=== PATIENT | female | born 1985 | race Caucasian/White ===

== ENCOUNTER 2019-05-21 23:26 | Emergency (ER) | payer OTHER, SELFPAY ==
[2019-05-21 23:28] VITALS: BP 148/101; PULSE 115; RESP 22; TEMP 36.9; O2SAT 99; BMI 23.6
[2019-05-21 23:33] VITALS: BP 148/101; PULSE 115; RESP 18; TEMP 36.9; O2SAT 99
--- NOTE | 2019-05-21 23:40 | RAD_ITS ---
STUDY: X-RAY CHEST REASON FOR EXAM: Female, 34 years old. cough x 1 month TECHNIQUE: PA and lateral chest. COMPARISON: October 20, 2009. FINDINGS: The lungs are clear and expanded. There is no demonstrated pleural abnormality. Normal size heart. Normal mediastinum and jonas. Normal visualized pulmonary arteries. Normal visualized aortic arch and descending thoracic aorta. Normal visualized thoracic spine. Normal visualized ribs, clavicles, and shoulders. There is no demonstrated abnormality of the visualized soft tissue structures of the upper abdomen. RAD/Chest PA and Lateral IMPRESSION: Normal x-ray examination of the chest. Electronically Signed: Bola Flannery MD at 0:06 EDT , Service support ,
--- NOTE | 2019-05-21 23:41 | ED.DCSUM_ITS ---
- ER Visit Summary Date of Service: 05/21/19 Chief Complaint: Cough and fever History of Present Illness: The patient is a 34 F past medical history of angioedema and hives. Connective tissue disorder undifferentiated. Patient states since April 26 she is had intermittent cough and fever. Multiple fam baldo members have had the same. At times she has yellowish sputum. She has had a fever as high as 102. Currently she is afebrile and has not taken any Tylenol or Motrin today. Physical Examination: Young female no acute distress. Vital signs are stable afebrile. Temperature 98.5. She does not look septic or toxic she is no distress. Pulse ox 99% on room air no signs hypoxia. H EENT exam normal. Neck nontender no lymphadenopathy. No meningismus. Lungs dry cough but no rales, rhonchi or wheezing. Equal symmetrical. No distress. Heart regular rhythm rate about 110 no murmur. Abdomen soft nontender. Patient is moving all 4 extremities. Calves are nontender without edema or cords. Back nontender. Skin no rashes. Neurologically she is awake and alert. Test Results: Chest x-ray 2 views AP and lateral read by myself shows no acute abnormality. Normal cardiac silhouette mediastinum. Emergency Department Course and Treatment: History and exam are consistent with a viral syndrome. She has no signs of pneumonia. She does not need antibiotics. Treatment Plan: Plenty of fluids and rest. Alternate Tylenol Motrin for fever. Follow-up if not improving. Precautions to prevent the spread to other people. Disposition: Discharge Impression: Acute viral URI This note was generated with [employer] dictation software. It may contain incorrect words, spelling, and punctuation that were not noted in review of the chart prior to signing ED Disposition - Plan for ED Patient: Referrals: Isaac Ayala MD [Primary Care Provider] -
--- NOTE | 2019-05-21 23:45 | ED.DEP ---
ED Disposition - Plan for ED Patient: Disposition: Home or Assisted Living Instructions: URI, Viral, No Abx (Adult) Referrals: Isaac Ayala MD [Primary Care Provider] - Additional Instructions: Plenty of fluids and rest. Alternate Tylenol and Motrin for fever. Use precautions to prevent infecting other people. Follow-up with your doctor if not improving.
[2019-05-22 00:15] VITALS: BP 136/89; PULSE 91; RESP 22; O2SAT 98
--- NOTE | 2019-05-22 00:16 | ED.RN ---
THIS NURSE REVIEWED D/C INSTRUCTIONS WITH PT. PT VERBALIZED UNDERSTANDING OF INSTRUCTIONS. PT DENIES FURTHER NEEDS OR QUESTIONS AT THIS TIME. PT AMBULATES FROM ROOM ON OWN WITHOUT ASSISTANCE FROM STAFF
== END 2019-05-22 00:16 | disposition home or self-care (01) ==
PROVIDERS: Emergency Provider Emergency Medicine; PCP Pediatrics
DX: J06.9 Acute upper respiratory infection, unspecified (principal)
CPT/HCPCS: 71046; 99282

== ENCOUNTER 2023-04-14 16:54 | Emergency (ER) | payer OTHER, SELFPAY ==
[2023-04-14 16:55] VITALS: BP 149/115; PULSE 120; RESP 20; TEMP 36.1; O2SAT 100; BMI 31.8
[2023-04-14 18:14] VITALS: BP 158/96; PULSE 95; RESP 14; O2SAT 100
--- NOTE | 2023-04-14 18:14 | EDS_ITS ---
HPI History of Present Illness Chief Complaint: Syncope Informant: patient Onset/Context/Timing Onset: Today Context: Sudden Onset Timing: Waxes and wanes Quality: Lightheaded, dizzy Location: Head Worsened by: Standing, moving Relieved by: Laying down Narrative Narrative: Patient presents with a syncopal episode that occurred today. Patient states she was walking up steps when this occurred. Patient states she felt lightheaded and dizzy. Patient states she did fall down. Patient thinks she may have lost consciousness but is not sure. Patient states that if she was unconscious it was very brief. Patient states she feels lightheaded and dizzy. Patient states it is worse with standing and moving. Patient states it is better when she is laying down. Patient states she was recently started on a beta-jan 5 days ago. Patient states that with metoprolol. Patient states it was a very low dose. Patient states this was for tachycardia. [facility] Medical History (Updated 04/14/23 @ 21:[address] Lenny Curiel DO) SOB (shortness of breath) Home Medications Methotrexate 05/21/19 [History Last Taken Unknown] cetirizine 10 mg capsule 10 mg PO BID 05/21/19 [History Last Taken Unknown] cholecalciferol (vitamin D3) 50 mcg (2,000 unit) capsule 4,000 unit PO DAILY 05/21/19 [History Last Taken Unknown] famotidine 20 mg tablet 20 mg PO BID 05/21/19 [History Last Taken Unknown] fexofenadine 60 mg tablet 60 mg PO BID 05/21/19 [History Last Taken Unknown] fluticasone propionate 50 mcg/actuation nasal spray,suspension 2 spray NASAL DAILY 05/21/19 [History Last Taken Unknown] methylphenidate HCl 18 mg tablet,extended release 24 hr 36 mg PO DAILY 05/21/19 [History Last Taken Unknown] Allergy/AdvReac Type Severity Reaction Status Date / Time Penicillins Allergy Rash Verified 04/14/23 16:56 Surgical History (Updated 04/14/23 @ 18:[address] Lenny Curiel DO) History of section Hx of tonsillectomy Social History Smoking Status: Never smoker ROS ROS ED Constitutional Constitutional ED: Denies chills or fever(s) Eyes Eyes: Reports change in vision and other Details: Floaters ; Denies blurry vision ENT ENT ED: Reports other Details: Occasional epistaxis ; Denies rhinorrhea or sore throat Cardiovascular Cardiovascular: Reports chest pain and palpitations Respiratory/Chest Respiratory/Chest: Denies cough or dyspnea Gastrointestinal Gastrointestinal: Reports nausea; Denies vomiting Genitourinary Genitourinary ED: Reports urinary frequency; Denies dysuria or hematuria Musculoskeletal Musculoskeletal: Reports neck pain; Denies back pain Integumentary Reports rash; Denies abscess Neurologic Neurologic: Reports weakness; Denies headache(s) Allergic/Immunologic Allergic/Immunologic ED: Reports urticaria; Denies mouth swelling or tongue swelling EXAM Physical Exam Const Vital Signs: 04/14/23 16:55 04/14/23 18:08 04/14/23 18:14 Temperature 97 F L Temperature Source Temporal Pulse Rate 120 H 95 Pulse Rate [Lying] Pulse Rate [Sitting (for 1 minute prior to obtaining)] Pulse Rate [Standing (for 1 minute prior to obtaining)] Respiratory Rate 20 H 14 Respiratory Effort Normal Non-Labored Respiratory Pattern Normal Blood Pressure 149/115 H 158/96 H Blood Pressure [Lying] Blood Pressure [Sitting (for 1 minute prior to obtaining)] Blood Pressure [Standing (for 1 minute prior to obtaining)] Blood Pressure Mean 126 116 Blood Pressure Mean [Lying] Blood Pressure Mean [Sitting (for 1 minute prior to obtaining)] Blood Pressure Mean [Standing (for 1 minute prior to obtaining)] Pulse Ox 100 100 Oxygen Delivery Method Room Air Room Air 04/14/23 18:56 04/14/23 20:57 04/14/23 20:59 Temperature 98.8 F 98.8 F Temperature Source Temporal Temporal Pulse Rate 96 96 Pulse Rate [Lying] 99 Pulse Rate [Sitting (for 1 minute prior to obtaining)] 83 Pulse Rate [Standing (for 1 minute prior to obtaining)] 83 Respiratory Rate 18 18 Respiratory Effort Respiratory Pattern Blood Pressure 156/98 H 156/98 H Blood Pressure [Lying] 149/105 H Blood Pressure [Sitting (for 1 minute prior to obtaining)] 153/98 H Blood Pressure [Standing (for 1 minute prior to obtaining)] 146/103 H Blood Pressure Mean 117 117 Blood Pressure Mean [Lying] 119 Blood Pressure Mean [Sitting (for 1 minute prior to obtaining)] 116 Blood Pressure Mean [Standing (for 1 minute prior to obtaining)] 117 Pulse Ox 98 98 Oxygen Delivery Method Room Air Room Air 04/14/23 21:00 Temperature 98.8 F Temperature Source Pulse Rate 96 Pulse Rate [Lying] Pulse Rate [Sitting (for 1 minute prior to obtaining)] Pulse Rate [Standing (for 1 minute prior to obtaining)] Respiratory Rate 18 Respiratory Effort Respiratory Pattern Blood Pressure 156/98 H Blood Pressure [Lying] Blood Pressure [Sitting (for 1 minute prior to obtaining)] Blood Pressure [Standing (for 1 minute prior to obtaining)] Blood Pressure Mean 117 Blood Pressure Mean [Lying] Blood Pressure Mean [Sitting (for 1 minute prior to obtaining)] Blood Pressure Mean [Standing (for 1 minute prior to obtaining)] Pulse Ox 98 Oxygen Delivery Method Positive well nourished and well developed General Appearance ED: well developed and NAD HEENT Reports moist mucous membranes Neck supple and no JVD Resp normal respiratory effort and clear to auscultation bilaterally Cardio regular rhythm Rate: tachycardic GI non-tender and non-distended Palpation: soft Extremity normal to inspection Neuro oriented x3, CN's II-XII intact bilaterally and no sensory deficits noted Sensorium / Orientation: alert Motor Exam: strength 5/5 throughout Psych mental status grossly normal MDM MDM MDM Narrative Medical decision making narrative: Differential diagnosis includes cardiac dysrhythmia, cardiac ischemia, pulmonary embolism, electrolyte abnormality, dehydration, and medication side effect. EKG will be obtained to assess for cardiac dysrhythmia and cardiac ischemia. CT scan of the brain will be obtained to assess for intracranial bleeding and stroke. CTA of the chest will be obtained to assess for pulmonary embolism and aortic dissection. CBC will be obtained to assess for leukocytosis and anemia. Basic metabolic profile will be obtained to assess for electrolyte abnormality and renal function. High-sensitivity troponin will be obtained to assess for cardiac ischemia. 2-hour repeat high-sensitivity troponin will be obtained to assess for ongoing cardiac ischemia. COVID-19, influenza, and RSV PCR will be obtained to assess for viral infection. Urinalysis will be obtained to assess for urinary tract infection. Orthostatic vital signs will be obtained to assess for orthostatic hypotension. Lab Data Attestation: I reviewed the patient's lab results. Lab results narrative: CBC was reviewed. There is a slight leukocytosis of 11.6. The remainder is within normal limits. Basic metabolic profile was reviewed and was essentially within normal limits. Serum hCG was reviewed and was negative. High- sensitivity troponin was reviewed and was normal at 4. 2-hour repeat high- sensitivity troponin was reviewed and was normal at 5. Urinalysis was reviewed. There is no evidence of urinary tract infection or hematuria. COVID-19 PCR was reviewed and was negative. Influenza PCR was reviewed and was negative for influenza A and influenza B. RSV PCR was reviewed and was negative. Labs: Laboratory Results - last 24 hr 04/14/23 04/14/23 04/14/23 18:30 19:00 20:44 WBC 11.6 H RBC 5.01 Hgb 14.5 Hct 43.1 MCV 86.0 MCH 28.9 MCHC 33.6 RDW Std Deviation 39.3 RDW Coeff of Jamaal 12.5 Plt Count 445 MPV 9.9 Immature Gran % (Auto) 0.500 Neut % (Auto) 62.0 Lymph % (Auto) 28.5 Ocean % (Auto) 7.9 Eos % (Auto) 0.5 Baso % (Auto) 0.6 Absolute Neuts (auto) 7.2 Absolute Lymphs (auto) 3.32 Nucleated RBC % 0 Sodium 135 L Potassium 4.1 Chloride 106 Carbon Dioxide 25.0 Anion Gap 4 L BUN 8 Creatinine 0.74 Estim Creat Clear Calc 111.39 Est GFR (MDRD) Af Amer 114 Est GFR (MDRD) Non-Af 94 BUN/Creatinine Ratio 10.8 Glucose 92 Calcium 9.9 Troponin I High Sens 4 5 Serum , Qual NEGATIVE Urine Color Yellow Urine Clarity Clear Urine pH 6.0 Ur Specific Devers 1.015 Urine Protein 15 H Urine Glucose (UA) Normal Urine Ketones 5 H Urine Occult Blood Negative Urine Nitrite Negative Urine Bilirubin Negative Urine Urobilinogen Normal Ur Leukocyte Esterase Negative Urine RBC 0 SEEN Urine WBC 0 SEEN Ur Squamous Epith Cells 0-5 SEEN Urine Bacteria 0 SEEN Urine Mucus 0 SEEN Radiography Diagnostic Testing: Clinical Impression(s) from Imaging Studies Brain CT 04/14/23 18:20 IMPRESSION: Normal unenhanced CT scan of the brain. Electronically Signed: William Marin MD at 19:59 EST , Chest CTA 04/14/23 18:21 IMPRESSION: Normal CTA chest examination, without a demonstrated pulmonary embolism or arterial dissection. Electronically Signed: William Marin MD at 20:01 EST Reading Location ID and State: [facility] / [place] Tel , Service support , CT scan of the brain was obtained. There is no acute intracranial abnormality. This was interpreted by the radiologist and was also independently reviewed by myself. CTA of the chest was obtained. There is no pulmonary embolism or arterial dissection. There is no pneumonia. This was interpreted by the radiologist and was also independently reviewed by myself. EKG Initial EKG: Attestation: I personally reviewed and interpreted this EKG as follows: Interpretation: Sinus Rhythm (99) and No Acute Injury Pattern Comments: EKG was obtained. On my independent interpretation, it showed a normal sinus rhythm with a rate of 99. TN interval, QRS interval, and QTc intervals were all normal. Milo was normal. There are no acute ST or T wave changes. Prior EKG tracings: not available for review Prior: No Prior Treatment and Re-Evaluation :: Patient was advised of her findings. Patient was instructed to follow-up with her primary care physician in 5 to 7 days. Patient states she is scheduled to have a 30-day Holter monitor placed this week. Patient was instructed to follow-up with that. Patient was instructed to return if worse in any way. Patient understood and was agreeable with the plan. All questions were answered. Discharge Plan Triage Chief Complaint: Syncope ED Provider: Lenny Curiel Dx/Rx/DC Orders Clinical Impression: Syncope and collapse Instructions: ED Fainting, Uncertain Cause Prescriptions: No Action fexofenadine 60 MG tablet 60 mg PO BID famotidine 20 MG tablet 20 mg PO BID methylphenidate HCl 18 MG tablet extended release 24hr 36 mg PO DAILY fluticasone propionate 1 SPRAY spray,suspension 2 spray NASAL DAILY cholecalciferol (vitamin D3) 2,000 UNIT capsule 4,000 unit PO DAILY cetirizine 10 MG capsule 10 mg PO BID Methotrexate Primary Care Provider: Florencio Pereira Referrals: Florencio Pereira DO [Primary Care Provider] - 5-7 Days Disposition Disposition: Home, Self Care
--- NOTE | 2023-04-14 18:20 | CT_ITS ---
STUDY: CT BRAIN WITHOUT CONTRAST REASON FOR EXAM: Female, 37 years old. Syncope RADIATION DOSAGE (If Supplied By Facility): CTDIvol = ( 44.99 ) mGy, DLP = ( 745.49 ) mGycm TECHNIQUE: Transaxial CT imaging of the brain was performed without administration of intravenous contrast material. Individualized dose optimization techniques were used for this CT. COMPARISON: No relevant priors. FINDINGS: Normal soft tissue structures. Normal calvarium. Normal size ventricles and extra-axial spaces for the patient''s age. Normal white matter tracts of the cerebral hemispheres. Normal basal ganglia and thalami. Normal brainstem. Normal cerebellum. There is no intracranial hemorrhage. There are no findings of an acute ischemic infarction. Normal visualized paranasal sinuses. CT/Brain/Head without Contrast IMPRESSION: Normal unenhanced CT scan of the brain. Electronically Signed: William Marin MD at 19:59 EST ,
--- NOTE | 2023-04-14 18:21 | CT_ITS ---
STUDY: CTA CHEST REASON FOR EXAM: Female, 37 years old. Syncope RADIATION DOSAGE (If Supplied By Facility): CTDIvol = ( 7.30 ) mGy, DLP = ( 1156.41 ) mGycm TECHNIQUE: The examination was performed with the intravenous administration of isovue 370 100 ml. Post-processing of the angiographic images was performed, with multiplanar reformation and 3D reconstruction. Individualized dose optimization techniques were used for this CT. COMPARISON: None. FINDINGS: Normal enhancement of the main pulmonary artery and right and left pulmonary arteries. Normal enhancement of the bilateral peripheral pulmonary arteries. There is no demonstrated pulmonary embolism. Normal thoracic aorta and visualized great vessels. There is no demonstrated aortic dissection. Normal heart and pericardium. Normal mediastinum. Normal hilar regions. Normal visualized trachea and bronchi. The lungs are well expanded. Normal pulmonary parenchyma. Normal pleura. Normal chest wall structures. Normal osseous structures. Normal visualized upper abdomen. CT/CTA Chest W/WO Contrast IMPRESSION: Normal CTA chest examination, without a demonstrated pulmonary embolism or arterial dissection. Electronically Signed: William Marin MD at 20:01 EST ,
[2023-04-14] MEDS: 0.9% Normal Saline (1000mL) 1,000 ML 1000 ML IV (18:30)
[2023-04-14 18:39] LABS: Absolute Lymphocyte Count 3.32 X10^3/uL (0.83-4.51); Absolute Neutrophil Count 7.2 X10^3/uL (2.0-7.7); Basophil# 0.07 X10^3/uL; Basophil% 0.6 % (0-1); Eosinophil# 0.06 X10^3/uL; Eosinophils% 0.5 % (0-5); Hematocrit 43.1 % (37-47); Hemoglobin 14.5 g/dL (12.0-15.0); Lymphocyte # 3.32 X10^3/ul (0.83-4.51); Lymphocyte % 28.5 % (19-41); Mean Corp Hgb Conc 33.6 g/dL (32-36); Mean Corpuscular Hgb 28.9 pg (27.0-32.0); Mean Platelet Vol. 9.9 fl (6.2-12.0); Monocyte# 0.92 X10^3/uL; Monocyte% 7.9 % (0-10); NRBC Flagged by Analyzer 0 % (0-5); Neutrophil # 7.21 X10^3/uL (2.7-7.7); Platelet Count 445 K/mm3 (150-450); RBC Distribution Width CV 12.5 % (11.6-14.6); RBC Distribution Width SD 39.3 fl (35.1-43.9); Red Blood Count 5.01 M/mm3 (4.2-5.4); White Blood Count 11.6 K/mm3 (4.4-11.0)
[2023-04-14 18:43] LABS: Internal QC Validated? YES +Cl - CLEAR BKGD; Pregnancy, Serum, hCG Quali. NEGATIVE Negative
[2023-04-14 18:55] LABS: Anion Gap 4 (5-15); BUN 8 mg/dL (7-18); BUN/Creat Ratio 10.8 RATIO (10-20); Calcium,Total 9.9 mg/dL (8.5-10.1); Chloride 106 mmol/L (98-107); Creatinine, Serum 0.74 mg/dL (0.55-1.02); EST Glomerular Filtration Rate 94 mL/min (>60); Est Glom Filt Rate - Afr Amer 114 mL/min (>60); Estimated Creatinine Clearance 111.39 ml/min; Glucose 92 mg/dL (74-106); Potassium 4.1 mmol/L (3.5-5.1); Sodium Level 135 mmol/L (136-145); Troponin-I HS (w/2H Reflex) 4 pg/mL (3.0-54.0)
[2023-04-14 18:56] VITALS: BP 146/103; BP 149/105; BP 153/98; PULSE 83; PULSE 99
[2023-04-14 19:07] LABS: Bacteria 0 SEEN /hpf (None Seen); Mucous, Urine 0 SEEN /hpf (<or=2+); Red Blood Cells-Urine 0 SEEN /hpf (0-5); White Blood Cells 0 SEEN /hpf (0-5)
[2023-04-14 19:25] LABS: Color, Urine Yellow (Yellow); Glucose, Dipstick Normal (Normal); Ketone-Dipstick 5 mg/dl (Negative); Leukocyte Esterase-Dipstick Negative /ul (Negative); Nitrite-Dipstick Negative (Negative); Occult Blood-Urine Negative /ul (Negative); Protein-Dipstick 15 mg/dl (Negative); Specific Gravity, Urine 1.015 (1.002-1.030); Urine Bilirubin Dipstick Negative (Negative); Urine Clarity Clear (Clear); Urine Urobilinogen Normal (Normal)
[2023-04-14 19:34] LABS: Squamous Epithelial Cells - UA 0-5 SEEN /hpf (5-10)
--- OUTSIDE RECORDS SUMMARY | 2023-04-14 20:08 | XMS RPT_ITS | CCD ---
Author Name Unknown Address [address] [facility] [address] [place] [address] Organization [facility] Care Team Providers Care Crepe Box Tender Name Role Phone Samanta Hale MD Primary Care Provider [phone] SAMANTA HALE Primary Care Unavailable ARNOL TERAN Referring Unavailable ARNOL TERAN Attending Unavailable SAMANTA HALE Primary Care Unavailable MANDIE HOUSER Attending Unavailable SAMANTA HALE Primary Care Unavailable ARNOL TERAN Referring Unavailable SAMANTA HALE Attending Unavailable SAMANTA HALE Primary Care Unavailable SAMANTA HALE Primary Care Unavailable MARYELLEN MEJIA Referring Unavailable SAMANTA HALE Primary Care Unavailable SAMANTA HALE Attending Unavailable SAMANTA HALE Primary Care Unavailable MARYELLEN MEJIA Attending Unavailable MIKEY ZARATE Referring Unavailable SAMANTA HALE Primary Care Unavailable Samanta Hale MD Primary Care Provider [phone] Allergies Allergy Classification Reported Allergen(s) Allergy Type Date of Onset Reaction(s) Facility (20 sources) Hydroxychloroqu ine; Translations: [HYDROXYCHLOROQ UINE] Drug Allergy 0 Other: See Comments, Unknown [facility] Work Phone: (5 sources) Penicillins; Translations: [PENICILLINS] Drug Intolerance 9 Diarrhea [facility] Work Phone: (20 sources) Penicillins Drug Intolerance 9 Diarrhea [facility] Work Phone: Medications Current Medications Medication Drug Class(es) Dates Sig (Normalized) Sig (Original) drospirenone, contraceptive, (SLYND) 4 mg (28) tabet (11 sources) Start: 09-03-2022 End: 08-05-2023 take 1 tablet by mouth once daily drospirenone, contraceptive, (SLYND) 4 mg (28) tabet Indications: DUB (dysfunctional uterine bleeding) , Menstrual migraine without status migrainosus, not intractable Take 1 tablet by mouth once daily. 90 tablet 3 09/03/2022 08/05/2023 Active Completed/Discontinued Medications Medication Drug Class(es) Dates Sig (Normalized) Sig (Original) cefadroxil 500 mg oral capsule (5 sources) Cephalosporin Antibacterial Start: 11-20-2021 End: 12-23-2021 take 1 capsule by mouth twice daily cefADROxil (DURICEF) 500 mg capsule Indications: Folliculitis Take 1 capsule by mouth twice daily. 20 capsule 0 11/20/2021 12/23/2021 Discontinued Problems Active Problems Problem Classification Problem Date Documented Date Episodic/Chronic Attention-deficit, conduct, and disruptive behavior disorders (20 sources) Attention deficit hyperactivity disorder, predominantly inattentive type; Translations: [Attention-deficit hyperactivity disorder, predominantly inattentive type] Chronic Attention-deficit, conduct, and disruptive behavior disorders (20 sources) Attention deficit hyperactivity disorder; Translations: [Attention-deficit hyperactivity disorder, unspecified type] Onset: 07-27-2013 06-26-2020 Chronic Cardiac dysrhythmias (2 sources) Sinus tachycardia; Translations: [Tachycardia, unspecified] Onset: 04-10-2023 04-10-2023 Episodic Contraceptive and procreative management (1 source) Oral contraception; Translations: [Encounter for surveillance of contraceptive pills] Episodic Epilepsy; convulsions (20 sources) Epilepsy; Translations: [Absence epileptic syndrome, not intractable, without status epilepticus] Onset: 11-17-2008 06-27-2013 Chronic Headache; including migraine (20 sources) Menstrual migraine; Translations: [Menstrual migraine, not intractable, without status migrainosus] Onset: 11-16-2015 11-16-2015 Chronic Menstrual disorders (20 sources) Menstrual cramp; Translations: [Dysmenorrhea, unspecified] Onset: 11-17-2008 06-27-2013 Chronic Other circulatory disease (20 sources) Raynaud's disease; Translations: [Raynaud's syndrome without gangrene] Onset: 11-30-2018 04-14-2019 Chronic Other eye disorders (20 sources) Bilateral vitreous floaters; Translations: [Other vitreous opacities, bilateral] Onset: 11-30-2018 01-05-2020 Chronic Other inflammatory condition of skin (20 sources) Perioral dermatitis; Translations: [Perioral dermatitis] Onset: 02-08-2009 06-27-2013 Chronic Other nervous system disorders (2 sources) Demyelinating disease of central nervous system; Translations: [Demyelinating disease of central nervous system, unspecified] Chronic Other nervous system disorders (2 sources) Skin sensation disturbance; Translations: [Unspecified disturbances of skin sensation] Episodic Other nervous system disorders (1 source) Unspecified disturbances of skin sensation; Translations: [Disturbance of skin sensation] Onset: 04-10-2023 Episodic Other non-traumatic joint disorders (1 source) Pain of right wrist; Translations: [Pain in right wrist] Episodic Other non-traumatic joint disorders (1 source) Ankle pain; Translations: [Pain in right ankle and joints of right foot] 01-09-2023 Episodic Other nutritional; endocrine; and metabolic disorders (1 source) Hypercalcemia; Translations: [Hypercalcemia] Chronic Other skin disorders (1 source) Eruption; Translations: [Rash and other nonspecific skin eruption] Episodic Other skin disorders (1 source) Folliculitis; Translations: [Follicular disorder, unspecified] Episodic Other upper respiratory disease (20 sources) Allergic rhinitis due to pollen; Translations: [Allergic rhinitis due to pollen] Onset: 11-16-2015 11-16-2015 Chronic Systemic lupus erythematosus and connective tissue disorders (20 sources) Undifferentiated connective tissue disease; Translations: [Systemic involvement of connective tissue, unspecified] Onset: 01-05-2020 01-05-2020 Chronic Viral infection (1 source) Viral disease; Translations: [Viral infection, unspecified] Episodic Past or Other Problems Problem Classification Problem Date Documented Da te Episodic/Chronic Allergic reactions (20 sources) Chronic urticaria; Translations: [Other urticaria] Onset: 04-11-2019 05-30-2019 Episodic Immunizations and screening for infectious disease (20 sources) Anti-nuclear factor positive; Translations: [Other specified abnormal immunological findings in serum] Onset: 11-30-2018 11-30-2018 Episodic Other aftercare (20 sources) Taking high risk medication; Translations: [Other senior care (current) drug therapy] Onset: 11-30-2018 11-30-2018 Episodic Other aftercare (20 sources) Drug therapy finding; Translations: [Other terminal carman (current) drug therapy] Onset: 11-30-2018 01-05-2020 Episodic Other aftercare (20 sources) Patient encounter status; Translations: [Other senior care (current) drug therapy] Onset: 12-23-2021 Episodic Other gastrointestinal disorders (14 sources) Diarrhea; Translations: [Diarrhea, unspecified] Onset: 06-23-2022 Episodic Other nervous system disorders (20 sources) Finding of sensation of lower limb; Translations: [Unspecified disturbances of skin sensation] Onset: 11-11-2018 11-11-2018 Episodic Other non-traumatic joint disorders (1 source) Pain in right ankle and joints of right foot; Translations: [Right ankle pain, unspecified chronicity] Onset: 01-09-2023 Episodic Screening and history of mental health and substance abuse codes (20 sources) Ex-smoker; Translations: [Personal history of nicotine dependence] Onset: 06-26-2020 06-26-2020 Episodic Substance-related disorders (20 sources) Drug-induced insomnia; Translations: [Other psychoactive substance use, unspecified with psychoactive substance-induced sleep disorder] Onset: 10-21-2016 10-21-2016 Episodic Results Test Name Value Interpretation Reference Range Facil ity Vital Signs Date Time Vital Sign Value Performing Clinician Coco heck 04-10-2023 10:56-0500 Body temperature 99.61 [degF] Samanat Hale MD Work Phone: [facility] 04-10-2023 10:56-0500 Body weight 83.46 kg Samanta Hale MD Work Phone: [facility] 04-10-2023 10:56-0500 Diastolic blood pressure 84 mm[Hg] Samanta Hale MD Work Phone: [facility] 04-10-2023 10:56-0500 Heart rate 130 /min Samanta Hale MD Work Phone: [facility] 04-10-2023 10:56-0500 Respiratory rate 18 /min Samanta Hale MD Work Phone: [facility] 04-10-2023 10:56-0500 SaO2% (BldA) [Mass fraction] 99 % Samanta Hale MD Work Phone: [facility] 04-10-2023 10:56-0500 Systolic blood pressure 130 mm[Hg] Samanta Hale MD Work Phone: [facility] 08-12-2022 12:59-0400 Body weight 77.11 kg Mandie Houser CLASSIFIED ADVERTISING CLERK.SUPERVISOR [employer] Work Phone: [facility] 08-12-2022 12:59-0400 Diastolic blood pressure 76 mm[Hg] Mandie Houser CLASSIFIED ADVERTISING CLERK.SUPERVISOR [employer] Work Phone: [facility] 08-12-2022 12:59-0400 Heart rate 120 /min Mandie Houser CLASSIFIED ADVERTISING CLERK.SUPERVISOR [employer] Work Phone: [facility] 08-12-2022 12:59-0400 Respiratory rate 12 /min Mandie Houser CLASSIFIED ADVERTISING CLERK.SUPERVISOR [employer] Work Phone: [facility] 08-12-2022 12:59-0400 Systolic blood pressure 120 mm[Hg] Mandie Houser CLASSIFIED ADVERTISING CLERK.SUPERVISOR [employer] Work Phone: [facility] 04-30-2022 11:06-0500 Diastolic blood pressure 83 mm[Hg] Samanta Hale MD Work Phone: [facility] 04-30-2022 11:06-0500 Heart rate 99 /min Samanta Hale MD Work Phone: [facility] 04-30-2022 11:06-0500 Systolic blood pressure 114 mm[Hg] Samanta Hale MD Work Phone: [facility] 04-30-2022 10:36-0500 Body weight 75.3 kg Samanta Hale MD Work Phone: [facility] 04-30-2022 10:36-0500 Respiratory rate 14 /min Samanta Hale MD Work Phone: [facility] 03-13-2022 13:04-0500 Body height 161.3 cm Janell Miller APRN.SUPERVISOR [employer] Work Phone: [facility] 03-13-2022 13:04-0500 Body weight 76.2 kg Janell Miller APRN.SUPERVISOR [employer] Work Phone: [facility] 03-13-2022 13:04-0500 Diastolic blood pressure 80 mm[Hg] Janell Miller APRN.SUPERVISOR [employer] Work Phone: [facility] 03-13-2022 13:04-0500 Systolic blood pressure 142 mm[Hg] Janell Miller APRN.SUPERVISOR [employer] Work Phone: [facility] 12-23-2021 14:08-0400 Diastolic blood pressure 79 mm[Hg] Arnol Teran PA-C Work Phone: [facility] 12-23-2021 14:08-0400 Systolic blood pressure 118 mm[Hg] Aronl Teran PA-C Work Phone: [facility] 12-23-2021 13:29-0400 Body height 162.6 cm Arnol Teran PA-C Work Phone: [facility] 12-23-2021 13:29-0400 Body weight 74.84 kg Arnol Teran PA-C Work Phone: [facility] 12-23-2021 13:29-0400 Heart rate 82 /min Arnol Teran PA-C Work Phone: [facility] 12-23-2021 13:29-0400 Respiratory rate 14 /min Arnol Teran PA-C Work Phone: [facility] 11-20-2021 13:18-0400 Body height 162.6 cm Samanta Hale MD Work Phone: [facility] 11-20-2021 13:18-0400 Body temperature 98.91 [degF] Samanta Hale MD Work Phone: [facility] 11-20-2021 13:18-0400 Body weight 73.48 kg Samanta Hale MD Work Phone: [facility] 11-20-2021 13:18-0400 Diastolic blood pressure 92 mm[Hg] Samanta Hale MD Work Phone: [facility] 11-20-2021 13:18-0400 Heart rate 84 /min Samanta Hale MD Work Phone: [facility] 11-20-2021 13:18-0400 Respiratory rate 16 /min Samanta Hale MD Work Phone: [facility] 11-20-2021 13:18-0400 Systolic blood pressure 146 mm[Hg] Samanta aHle MD Work Phone: [facility] 06-12-2021 15:41-0400 Body height 162.6 cm Maryellen Mejia MD Work Phone: [facility] 06-12-2021 15:41-0400 Body weight 71.22 kg Maryellen Mejia MD Work Phone: [facility] Encounters Encounter Date Encounter Type Care Provider Facility Start: 04-13-2023 ambulatory Samanta romero MD Work Phone: [facility] Procedures Date Procedure Procedure Detail Performing Clinician Start: 01-09-2023 Radex ankle complete minimum 3 views Mikey Zarate MD Work Phone: Start: 04-07-2022 Us pelvic nonobstetr ic real-time image complete Janell Miller APRN.SUPERVISOR [employer] Work Phone: Start: 11-20-2021 Iadna nos amplified probe tq each organism Samanta Hale MD Work Phone: Start: 11-20-2021 2019 CORONAVIRUS Hazel Hale MD Work Phone: Start: 07-01-2021 Mri spinal canal tho racic w/o & w/contr matrl Maryellen Mejia MD Work Phone: Start: 06-05-2021 Adult depression scr eening assessment Samanta Hale MD Work Phone: Plan of Treatment Date Care Activity Detail Author Start: 06-07-2053 TWO PNEUMOVAX 5 YEAR S APART PRIOR TO AGE 65 (#1) TWO PNEUMOVAX 5 YEARS APART PRIOR TO AGE 65 (#1) [facility] Immunizations Immunization Date Immunization Notes Care Provider Bettie norton 01-08-2020 influenza, seasonal, injectable Samanta Hale MD Work Phone: [facility] 01-08-2020 influenza virus vaccine, unspecified formulation Samanta Hale MD Work Phone: [facility] 05-23-2015 tetanus toxoid, redu german diphtheria toxoid, and acellular pertussis vaccine, adsorbed Samanta Hale MD Work Phone: [facility] Work Phone: Payers Date Payer Category Payer Private Health Insurance [facility] UMR CHOICE PLUS [id number] 2020-Present [phone] [address] [address] [place] [address] O [id number] 2020 Private Health Insurance [facility] [employer]MR CHOICE PLUS [id number] 2020-Present [phone] [address] [address] [place] [address] HMO [id number] 2020 Unknown [id number] Social History Date Type Detail Facility Start: 06-18-2020 End: 11-20-2021 Tobacco smoking status NHIS Ex-smoker [facility] End: 06-07-2009 History of tobacco use Current smoker [facility] End: 06-07-2009 History of tobacco use Cigarette Smoker [facility] Start: 03-22-2021 End: 04-10-2023 Alcohol intake Current drinker of alcohol (finding) [facility] Start: 03-22-2021 End: 08-12-2022 Alcohol intake [facility] Start: 01-04-2020 End: 04-29-2022 History SDOH Alcohol Frequency 2 [facility] Start: 01-04-2020 End: 04-29-2022 History SDOH Alcohol Std Drinks 1 [facility] Start: 06-27-2013 History SDOH Alcohol Comment occasionally [facility] Start: 03-15-2019 End: 07-22-2021 History SDOH Social Connections Phone 4 [facility] Start: 03-15-2019 End: 04-29-2022 History SDOH Social Connections Alevism 3 [facility] Start: 01-05-2020 End: 04-29-2022 History SDOH Physical Activity MPS 6 [facility] Start: 03-15-2019 Education 12 [facility] Start: 06-18-2020 End: 11-20-2021 Tobacco Comment Pt only smoked 1 pack a week. Quit smoking 06/07/2009 [facility] Start: 1985 Sex Assigned At Not on file [facility] Start: 06-03-2021 End: 11-20-2021 Exposure to SARS-CoV-2 (event) Not sure [facility] Start: 07-22-2021 End: 04-29-2022 History SDOH Social Connections Phone 5 [facility] Start: 06-18-2020 End: 11-20-2021 Tobacco use and exposure Smokeless tobacco non-user [facility] Start: 12-23-2021 End: 06-23-2022 Alcohol intake Ex-drinker (finding) [facility] Start: 04-29-2022 End: 08-12-2022 Social connection and isolation panel [facility] Do you belong to any clubs or organizations such as tenriism groups, unions, fraternal or athletic groups, or school groups? Yes [facility] Are you now , , , , never or living with a partner? [facility] How often to you hav e a drink containing alcohol? Monthly or less [facility] How many standard dr inks containing alcohol do you have on a typical day? 1 or 2 [facility] How often do you hav e 6 or more drinks on 1 occasion? Never [facility] How hard is it for y ou to pay for the very basics like food, housing, medical care, and heating Hard [facility] Adult Depression Screening Assessment 2 [facility] Work Phone: Do you feel stress - tense, restless, nervous, or anxious, or unable to sleep at night because your mind is troubled all the time - these days [OSQ] To some extent [facility] (I/We) worried gaby er (my/our) food would run out before (I/we) got money to buy more. Never true [facility] In the past 12 month s, was there a time when you were not able to pay the mortgage or rent on time? No [facility] Clinical Notes 06-05-2021 to 04-10-2023 Samanta Hale MD - 04/10/2023 10:49 AM ESTTelephone Encounter - Noris Arnold - 02/12/2023 11:19 AM ESTTelephone Encounter - Kaye Hawthorne RN - 02/11/2023 5:15 PM ESTPatient Instructions Note Date & Type Note Facility 04-10-2023 Note HNO ID: [id number] Author: SAMANTA HALE MD Service: ? Author Type: Physician Type: Progress Notes Filed: 04/10/2023 12:23 Note Text: Chief Complaint Patient presents with: Rash HPI Colette Herrera is a 37 year old female who presents here today for rash. Patient presents for routine follow up for ADHD. Patient currently on concerta and as needed ritalin. Patient does not need ritalin if able to get name brand concerta. Location? Rash is only on lower left arm. Has faded today patient has pictures. Over all has not been feeling good; joint pain; fatigue. Rash does not itch. Denies increased stress or feeling anxious. Last dose of ritalin was over two weeks ago. Daughter had hand/foot/mouth and patient was also sick at that time in February. Just feels she never got over the sickness. Patient has been waking up with palpitations and feeling a pressure on her chest. No shortness of breath or chest pain. Getting a throbbing in her head during the day. Does not feel lightheaded or dizzy. There is a strong Hx of arhythmia's on her mothers side of her family. Mother just past from cardiac arrest. Past medical history, appointments, medications, allergies reviewed. Previous Medical History PAST MEDICAL HISTORY Diagnosis Date Absence seizure disorder (HCC) 2005 Dr. Darrian Acevedo ADHD (attention deficit hyperactivity disorder) 07/27/2013 ADHD (attention deficit hyperactivity disorder) Allergic rhinitis due to pollen 11/16/2015 Angioedema Childhood asthma Exercise induced. Chronic urticaria 04/11/2019 Diarrhea, unspecified 06/23/[address] 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 Endometriosis Ex-smoker 06/26/2020 Started age 20 yo, casual (mainly weekends). Quit around the age of 22 Family history of seizure disorder Father with seizures as a child , seizure free now, father's siblings with seizures as a child, first degree cousin wth absence seizure from father's side and daughter with absence seizures? 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) 01/05/2020 Seeing Rheum Previous Surgical History PAST SURGICAL HISTORY Procedure Laterality Date 2D ECHO (EXEP) 11/21/2015 EF=62%, no valve issues ADENOIDECTOMY PRIMARY Adenoidectomy DELIVERY ONLY 05/2006 , low transverse DELIVERY ONLY 04/26/11 TONSILLECTOMY PRIMARY/SECONDARY Tonsillectomy Family History FAMILY HISTORY Problem Relation Age of Onset No Ocular Disease Mother Hearing Loss Mother other (vitamin B def) Mother other (cardiac arrest) Mother 65 Cancer Father Lymphoma, unk type- Dx 50yrs age Heart Father Defibrillator, Bypass Seizures Father as child Coronary Artery Disease Father 40's Diabetes Father No Ocular Disease Father Hyperlipidemia Father Hypertension Father No Ocular Disease Sister No Ocular Disease Maternal Grandmother Diabetes Maternal Grandfather No Ocular Disease Maternal Grandfather Diabetes Paternal Grandmother No Ocular Disease Paternal Grandmother Diabetes Paternal Grandfather No Ocular Disease Paternal Grandfather Lipids Maternal Aunt Cancer Maternal Aunt Berkett's Lymphoma Lipids Maternal Uncle Diabetes Paternal Aunt Hypertension Paternal Aunt Lipids Paternal Aunt Stroke Paternal Aunt Diabetes Paternal Uncle Hypertension Paternal Uncle Lipids Paternal Uncle Seizures Paternal Uncle as children Sudden Cardiac Other 62 paternal cousin Patient Allergies ALLERGIES Allergen Reactions Plaquenil [Hydroxyc* Other: See Comments, Unknown Angio edema, increased psoriasis. Penicillins Diarrhea Current Medications Current Outpatient Medications on File Prior to Visit Medication Sig gabapentin (NEURONTIN) 300 mg capsule Take 3 capsules by mouth three times a day for 50 days. Take 2 tablets in am, 1 tablet at midday and 2 tablets at night methylphenidate ER 36 mg biphasic tablet Take 1 tablet by mouth once daily for 30 days. methylphenidate (RITALIN) 20 mg tablet Take 1 tablet by mouth every afternoon for 30 days. cloNIDine HCl (CATAPRES) 0.2 mg tablet Take 1 tablet by mouth daily at bedtime. drospirenone, contraceptive, (SLYND) 4 mg (28) tabet Take 1 tablet by mouth once daily. fluticasone (FLONASE) 50 mcg/actuation nasal spray Use 2 Sprays in each nostril once daily. Rinse mouth after use. Alpha Lipoic Acid 600 mg cap Take 1 capsule by mouth once daily. famotidine (PEPCID) 20 mg tablet Take 1 tablet by mouth twice daily. EPINEPHrine (AUVI-Q) 0.3 mg/0.3 mL auto-injector Inject 0.3 mL intramus (more content not included)... [facility] 04-10-2023 History of Presen t illness Narrative Chief Complaint Patient presents with: Rash HPI Colette Herrera is a 37 year old female who presents here today for rash. Patient presents for routine follow up for ADHD. Patient currently on concerta and as needed ritalin. Patient does not need ritalin if able to get name brand concerta. Location? Rash is only on lower left arm. Has faded today patient has pictures. Over all has not been feeling good; joint pain; fatigue. Rash does not itch. Denies increased stress or feeling anxious. Last dose of ritalin was over two weeks ago. Daughter had hand/foot/mouth and patient was also sick at that time in February. Just feels she never got over the sickness. Patient has been waking up with palpitations and feeling a pressure on her chest. No shortness of breath or chest pain. Getting a throbbing in her head during the day. Does not feel lightheaded or dizzy. There is a strong Hx of arhythmia's on her mothers side of her family. Mother just past from cardiac arrest. Past medical history, appointments, medications, allergies reviewed. Previous Medical History PAST MEDICAL HISTORY Diagnosis Date Absence seizure disorder (HCC) 2005 Dr. Darrian Acevedo ADHD (attention deficit hyperactivity disorder) 07/27/2013 ADHD (attention deficit hyperactivity disorder) Allergic rhinitis due to pollen 11/16/2015 Angioedema Childhood asthma Exercise induced. Chronic urticaria 04/11/2019 Diarrhea, unspecified 06/23/[address] 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 Endometriosis Ex-smoker 06/26/2020 Started age 20 yo, casual (mainly weekends). Quit around the age of 22 Family history of seizure disorder Father with seizures as a child , seizure free now, father's siblings with seizures as a child, first degree cousin wth absence seizure from father's side and daughter with absence seizures? 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) 01/05/2020 Seeing Rheum Previous Surgical History PAST SURGICAL HISTORY Procedure Laterality Date 2D ECHO (EXEP) 11/21/2015 EF=62%, no valve issues ADENOIDECTOMY PRIMARY <AGE 14 Adenoidectomy DELIVERY ONLY 05/2006 , low transverse DELIVERY ONLY 04/26/11 TONSILLECTOMY PRIMARY/SECONDARY <AGE 14 Tonsillectomy Family History FAMILY HISTORY Problem Relation Age of Onset No Ocular Disease Mother Hearing Loss Mother other (vitamin B def) Mother other (cardiac arrest) Mother 65 Cancer Father Lymphoma, unk type- Dx 50yrs age Heart Father Defibrillator, Bypass Seizures Father as child Coronary Artery Disease Father 40's Diabetes Father No Ocular Disease Father Hyperlipidemia Father Hypertension Father No Ocular Disease Sister No Ocular Disease Maternal Grandmother Diabetes Maternal Grandfather No Ocular Disease Maternal Grandfather Diabetes Paternal Grandmother No Ocular Disease Paternal Grandmother Diabetes Paternal Grandfather No Ocular Disease Paternal Grandfather Lipids Maternal Aunt Cancer Maternal Aunt Berkett's Lymphoma Lipids Maternal Uncle Diabetes Paternal Aunt Hypertension Paternal Aunt Lipids Paternal Aunt Stroke Paternal Aunt Diabetes Paternal Uncle Hypertension Paternal Uncle Lipids Paternal Uncle Seizures Paternal Uncle as children Sudden Cardiac Other 62 paternal cousin Patient Allergies ALLERGIES Allergen Reactions Plaquenil [Hydroxyc* Other: See Comments, Unknown Angio edema, increased psoriasis. Penicillins Diarrhea Current Medications Current Outpatient Medications on File Prior to Visit Medication Sig gabapentin (NEURONTIN) 300 mg capsule Take 3 capsules by mouth three times a day for 50 days. Take 2 tablets in am, 1 tablet at midday and 2 tablets at night methylphenidate ER 36 mg biphasic tablet Take 1 tablet by mouth once daily for 30 days. methylphenidate (RITALIN) 20 mg tablet Take 1 tablet by mouth every afternoon for 30 days. cloNIDine HCl (CATAPRES) 0.2 mg tablet Take 1 tablet by mouth daily at bedtime. drospirenone, contraceptive, (SLYND) 4 mg (28) tabet Take 1 tablet by mouth once daily. fluticasone (FLONASE) 50 mcg/actuation nasal spray Use 2 Sprays in each nostril once daily. Rinse mouth after use. Alpha Lipoic Acid 600 mg cap Take 1 capsule by mouth once daily. famotidine (PEPCID) 20 mg tablet Take 1 tablet by mouth twice daily. EPINEPHrine (AUVI-Q) 0.3 mg/0.3 mL auto-injector Inject 0.3 mL intramuscularly as needed. No current facility-administered medications on file prior to visit. Social History Social History Tobacco Use Smoking status: Former Packs/day: 0.10 Years: 3.00 Additional pack years: 0.00 Total pack years: 0.30 Types: Cigarettes Quit date: 06/07/2009 Years since quittin.8 Smokeless tobacco: Never Tobacco comments: Pt only smoked 1 pack a week. Quit smoking 06/07/2009 Vaping Use Vaping Use: Never used Substance Use Topics Alcohol use: Yes Comment: occasionally Drug use: No Review of Symptoms REVIEW OF SYSTEMS See HPI EXAM: BP 130/84 (BP Site: Left Arm, BP Position: Sitting, BP Cuff Size: Regular Adult) Pulse (!) 130 Temp 37.6 C (99.6 F) Resp 18 Wt 83.5 kg (184 lb) LMP 04/16/2022 (Approximate) SpO2 99% BMI 32.08 kg/m General Appearance: Well appearing, alert, in no acute distress, well-hydrated, well nourished.. Skin: Skin color, texture, turgor normal, no suspicious rashes or lesions. The rash she has on the left dorsal forearm proximal to the wrist is very faint today and flat. Her pics showed a erythematous slightly raised plaque like a hive. Neck: Supple, no adenopathy; thyroid symmetric, normal size, no bruits. Lungs: Lungs clear to auscultation. No wheezing, rhonchi, rales.. Heart: Negative findings: no lift, heave, or thrill, S1 normal, S2 normal, no murmurs, rubs, clicks or gallops, Positive findings: tachycardia. Extremities: No deformities, edema, skin discoloration, Good capillary refill. . Health Maintenance List Covid-19 Vaccine(1) Never done Influenza Vaccine(1) due on 11/07/2022 Depression Assessment due on 03/09/2023 Pap Testing due on 01/03/2025 HPV Testing due on 01/03/2025 DTaP,Tdap,Td Vaccine(2 - Td or Tdap) due on 05/22/2025 Hepatitis C Screening Completed HPV Vaccine Aged Out HIV Screening Discontinued Data reviewed In office EKG: showed sinus Tachycardia without acute ST or T wave changes. A/P ASSESSMENT/PLAN: 1. Hives - ICD9: 708.9, ICD10: L50.9 (primary diagnosis) - Likely viral or allergic etiology discussed with patient - Follow up if symptoms persist or worsen. Discussed use of OTC antihistamine. 2. Sinus tachycardia - ICD9: 427.89, ICD10: R00.0 Check - [facility] EVENT MONITOR - BASIC METABOLIC PNL - TSH BLD - CBC + DIFF Start metoprolol succinate 25 mg 1/2 a tab daily. The following approved medication requests have been transmitted electronically. Requested Prescriptions Signed Prescriptions Disp Refills metoprolol succinate ER (TOPROL XL) 25 mg 24 hr tablet 15 tablet 5 Sig: Take 0.5 tablets by mouth once daily. Keep appt on 04/21/2023 Samanta Hale MD documented in this encounter [facility] 04-01-2023 Note HNO ID: [id number] Author: MARYELLEN MEJIA MD Service: ? Author Type: Physician Type: Progress Notes Filed: 04/02/2023 12:55 Note Text: NEUROLOGY FOLLOWUP VIRTUAL VISIT PATIENT NAME: Colette Lima [facility] NO.: [id number] DATE OF LAST SERVICE: 01/15/22 DATE OF TODAYS SERVICE 04/01/23 Referring provider: Sadie Varela [address] [place] [facility] [id number] HISTORY OF PRESENTING ILLNESS: Colette Herrera is a 35 year old female presents for multiple complaints as below: Unable to regulate temperature. She feels cold but skin feels warm to touch. Which leads to itching. Feels uncomfortable in her 'vein's in legs and arms. Legs are worse. Gets bruising. Intermittent. Daily episodes usually lasting mins to hours, usually about 3 episodes a day worsened by warm showers. H/o ADHD. Has memory problems she feels associated with these episodes. Also has 'weird' sensation in her heart. Sometimes has tachycardia. Feels presyncopal. Had a syncopal episode 2 yrs ago. If she sits her feet start to swell and she has paresthesias in both her legs symmetrically, more the lower leg but can radiate up proximally. Son and daughter have similar symptoms. Is on MTX for undifferentiated CTD for 1.5 yrs Has tried: doxepin, antihistamines. ROS: dyspnea on exertion or rest, spirometry normal INTERIM HISTORY 02/06/21: was on trileptal for H/of seizures when she was 17. Had hallcuinations on the medication. Still has symptoms of ithcing which is worse. 03/20/21: more goosebumps but less itching and sensory disturbance. 06/12/21: feel these symptoms got worse after she stopped the plaquenil. From belly button to breast had spasms lasting for days. ALA is helping. 01/15/22: clinically stable. Gabapentin helps with symptoms. 04/01/23: clinically stable. Is able to do adls and housework. Still uncomfrotable putting clothes on. All over PAST MEDICAL HISTORY: PAST MEDICAL HISTORY Diagnosis Date Absence seizure disorder (HCC) 2005 Dr. Darrian Acevedo ADHD (attention deficit hyperactivity disorder) 07/27/2013 ADHD (attention deficit hyperactivity disorder) Allergic rhinitis due to pollen 11/16/2015 Angioedema Childhood asthma Exercise induced. Chronic urticaria 04/11/2019 Diarrhea, unspecified 06/23/[address] 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 Endometriosis Ex-smoker 06/26/2020 Started age 20 yo, casual (mainly weekends). Quit around the age of 22 Family history of seizure disorder Father with seizures as a child , seizure free now, father's siblings with seizures as a child, first degree cousin wth absence seizure from father's side and daughter with absence seizures? 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) 01/05/2020 Seeing Rheum PAST SURGICAL HISTORY: PAST SURGICAL HISTORY Procedure Laterality Date 2D ECHO (EXEP) 11/21/2015 EF=62%, no valve issues ADENOIDECTOMY PRIMARY Adenoidectomy DELIVERY ONLY 05/2006 , low transverse DELIVERY ONLY 04/26/11 TONSILLECTOMY PRIMARY/SECONDARY Tonsillectomy MEDICATIONS: Current Outpatient Medications Medication Sig Dispense Refill methylphenidate ER 36 mg biphasic tablet Take 1 tablet by mouth once daily for 30 days. 30 tablet 0 gabapentin (NEURONTIN) 300 mg capsule Take 2 tablets in am, 1 tablet at midday and 2 tablets at night 150 capsule 11 methylphenidate (RITALIN) 20 mg tablet Take 1 tablet by mouth every afternoon for 30 days. 30 tablet 0 cloNIDine HCl (CATAPRES) 0.2 mg tablet Take 1 tablet by mouth daily at bedtime. 90 tablet 1 drospirenone, contraceptive, (SLYND) 4 mg (28) tabet Take 1 tablet by mouth once daily. 90 tablet 3 fluticasone (FLONASE) 50 mcg/actuation nasal spray Use 2 Sprays in each nostril once daily. Rinse mouth after use. 1 Each 1 Alpha Lipoic Acid 600 mg cap Take 1 capsule by mouth once daily. 30 capsule 11 famotidine (PEPCID) 20 mg tablet Take 1 tablet by mouth twice daily. 180 tablet 1 EPINEPHrine (AUVI-Q) 0.3 mg/0.3 mL auto-injector Inject 0.3 mL intramuscularly as needed. 2 Each 2 No current facility-administered medications for this visit. concerta for many yrs ALLERGIES: Please see EPIC ALLERGIES Allergen Reactions Plaquenil [Hydroxyc* Other: See Comments, Unknown Angio edema, increased psoriasis. 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 (more content not included)... [facility] 02-12-2023 Miscellaneous Notes I called and was unable to reach Colette and left her a voicemail to call the office to schedule. Refills requested for Neurontin 300 mg. Medication, dose and refill interval appropriate. Scheduling notified to call patient to schedule appointment. Please review and process accordingly. 01/15/22 IMPRESSION: 35 year old female with multiple complaints as above, most significantly of discomfort in her extremities and temperature dysregulation. Some features concerning for dysautonomia. EMG in 2019 was normal. Will test for above and small fiber neuropathy with tests below. Discussed possible diagnosis as above, differentials and that she may not have one unifying diagnosis for all her symptoms. All qs answered. 02/06/21: discussed normal results, no signs of dysautonomia. Discussed unknown etiology of her complex symptoms. Could be a manifestation of a neuropathy although uunlikely with a normal emg and skin biopsy. Discussed little downside of gabapentin trial. 03/20/21: some relief with gabapentin. Prolonged muscle spasms in abdomen corresponding to the thoracic spine. Will get imaging. 01/15/22: gabapentin helps with pain, itching. Legs worse, with gabapentin much less pain PLAN: Improvement with gabapentin. Increase to 600/300/600. Followup in 1 yr continuing ALA Physician: Roberto Robledo from patient requesting refill. Please E-Scribe Last OV: VV 01/15/22 with Roberto Future OV: not scheduled; msg sent to front end drupal developer to schedule. Requested Prescriptions Pending Prescriptions Disp Refills gabapentin (NEURONTIN) 300 mg capsule 150 capsule 11 Sig: Take 2 tablets in am, 1 tablet at midday and 2 tablets at night Pharmacy Name: [facility] Phone #: [phone] Marlene Andrés documented in this encounter [facility] 02-11-2023 Miscellaneous Notes The following approved medication requests have been transmitted electronically. Requested Prescriptions Signed Prescriptions Disp Refills methylphenidate (RITALIN) 20 mg tablet 30 tablet 0 Sig: Take 1 tablet by mouth every afternoon for 30 days. Authorizing Provider: SAMANTA HALE methylphenidate ER 36 mg biphasic tablet 30 tablet 0 Sig: Take 1 tablet by mouth once daily for 30 days. Authorizing Provider: SAMANTA HALE MD PDMP website checked and validated. All prescriptions have been APPROPRIATELY filled. No suspicious activity was identified. 02/11/2023 by Samanta Hale MD Last refill methylphenidate ER 36 mg 12/27/22 Qty: 30 with 0 refills Last refill methylphenidate 20 mg 08/27/22 Qty: 30 with 0 refills TASHI 12/16/22 VV NOV 04/21/23 Bj Vega LPN documented in this encounter [facility] 01-09-2023 Note HNO ID: [id number] Author: Mary Parikh RT(R) Service: Radiology Author Type: Technologist Type: Progress Notes Filed: 01/09/2023 11:59 AM Note Text: Radiology Service Progress Note PATIENT NAME: Colette Herrera DATE OF SERVICE: January 09, 2023 TIME: 11:45 AM PATIENT IDENTITY VERIFICATION COMPLETED USING TWO (2) IDENTIFIERS: Name and Date of confirmed by patient verbally. FALL SCREENING: Has the patient had 2 falls in the last year or 1 fall with injury or currently using an Ambulatory Assistive Device (Walker, Cane, Wheelchair, Crutches, etc.)? No PATIENT GENDER DATA: Female. status: : No status: NO. PATIENT RELEVANT IMPLANT DATA REVIEWED: Yes RADIOLOGY DEPARTMENT: General X-ray: Exam(s) Completed: Lower Extremity X-Ray(s): Ankle, Right and Wt. Bearing PERIPHERAL IV DATA: Not applicable SIGNED BY: Mary Parikh, RT(R) January 09, 2023 11:45 AM [facility] 01-09-2023 Note HNO ID: [id number] Author: Mikey Zarate MD Service: ? Author Type: Physician Type: Progress Notes Filed: 01/09/2023 2:15 PM Note Text: Patient presents with: Ankle Injury: Right HPI: Right ankle pain: Duration: couple weeks, progressively worse Location: lateral and medial right ankle Character: tearing usually, can be shrieking pain Radiation: up to the knee Aggravating: push off during walking, blanket at night Relieving: voltaren cream Pain relievers: tried Tylenol and aleve Associated: a little tingling, calf was cold last night, right chest flicking discomfort sometimes when walking, ankle swelling and puffy, Hx of connective tissue disorder/neuropathy Pertinent negatives: Denies known injury PAST MEDICAL HISTORY Diagnosis Date Absence seizure disorder (HCC) 2005 Dr. Darrian Acevedo ADHD (attention deficit hyperactivity disorder) 07/27/2013 ADHD (attention deficit hyperactivity disorder) Allergic rhinitis due to pollen 11/16/2015 Angioedema Childhood asthma Exercise induced. Chronic urticaria 04/11/2019 Diarrhea, unspecified 06/23/[address] 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 Endometriosis Ex-smoker 06/26/2020 Started age 20 yo, casual (mainly weekends). Quit around the age of 22 Family history of seizure disorder Father with seizures as a child , seizure free now, father's siblings with seizures as a child, first degree cousin wth absence seizure from father's side and daughter with absence seizures? 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) 01/05/2020 Seeing Rheum MEDICATIONS: cloNIDine HCl (CATAPRES) 0.2 mg tablet Take 1 tablet by mouth daily at bedtime. methylphenidate ER 36 mg biphasic tablet Take 1 tablet by mouth once daily for 30 days. Do not start before December 27, 2022. drospirenone, contraceptive, (SLYND) 4 mg (28) tabet Take 1 tablet by mouth once daily. gabapentin (NEURONTIN) 300 mg capsule Take 2 tablets in am, 1 tablet at midday and 2 tablets at night fluticasone (FLONASE) 50 mcg/actuation nasal spray Use 2 Sprays in each nostril once daily. Rinse mouth after use. Alpha Lipoic Acid 600 mg cap Take 1 capsule by mouth once daily. famotidine (PEPCID) 20 mg tablet Take 1 tablet by mouth twice daily. EPINEPHrine (AUVI-Q) 0.3 mg/0.3 mL auto-injector Inject 0.3 mL intramuscularly as needed. methylphenidate (RITALIN) 20 mg tablet Take 1 tablet by mouth every afternoon for 30 days. Do not start before August 27, 2022. ALLERGIES: ALLERGIES Allergen Reactions Plaquenil [Hydroxyc* Other: See Comments, Unknown Angio edema, increased psoriasis. Penicillins Diarrhea VITALS: BP 120/78 Pulse 84 Temp 36.6 ?C (97.8 ?F) Resp 16 Wt 80.2 kg (176 lb 12.8 oz) LMP 04/16/2022 (Approximate) SpO2 98% BMI 30.83 kg/m? PHYSICAL EXAM: GEN: pleasant, no acute distress, alert HEENT: PERRL, EOMI, NECK: supple, HEART: fast rate, regular rhythm, no murmurs LUNGS: clear to auscultation, no wheezes or crackles, no increased WOB EXT: no clubbing, no cyanosis, no edema KNEE: right. No erythema, effusion, or deformity. FROM, painful extension while sitting. No crepitus. Stable to varus and valgus strain. Negative anterior drawer test. Negative posterior drawer test. ANKLE: right . Trace Swelling medial and lateral malleolus. No erythema, ecchymosis, or deformity. Dorsalis pedis 2+/4 and posterior tibial 1+/4. Range of motion: inversion - painful, eversion - painful, anterior drawer- non-painful. able to bear weight. normal gait. Palpation: Medial malleolus non-painful, lateral malleolus painful posterior border, Dorsal proximal midfoot - painful, proximal 5th metatarsal non-painful, posterior calcaneus non-painful ASSESSMENT/PLAN: 1. Right ankle pain, unspecified chronicity - ICD9: 719.47, ICD10: M25.571 - XR ANKLE GENERAL 3V AP/LAT/OBL RIGHT - negative. - PREDNISONE 10 MG TABLET taper Follow up with podiatry or rheumatology if not improving. Mikey Zarate MD [facility] 01-09-2023 History of Presen t illness Narrative Radiology Service Progress Note PATIENT NAME: Colette Herrera DATE OF SERVICE: January 09, 2023 TIME: 11:45 AM PATIENT IDENTITY VERIFICATION COMPLETED USING TWO (2) IDENTIFIERS: Name and Date of confirmed by patient verbally. FALL SCREENING: Has the patient had 2 falls in the last year or 1 fall with injury or currently using an Ambulatory Assistive Device (Walker, Cane, Wheelchair, Crutches, etc.)? No PATIENT GENDER DATA: Female. status: : No status: NO. PATIENT RELEVANT IMPLANT DATA REVIEWED: Yes RADIOLOGY DEPARTMENT: General X-ray: Exam(s) Completed: Lower Extremity X-Ray(s): Ankle, Right and Wt. Bearing PERIPHERAL IV DATA: Not applicable SIGNED BY: RT Wade(R) January 09, 2023 11:45 AM documented in this encounter [facility] 12-26-2022 Miscellaneous Notes The following approved medication requests have been transmitted electronically. Requested Prescriptions Signed Prescriptions Disp Refills cloNIDine HCl (CATAPRES) 0.2 mg tablet 90 tablet 1 Sig: Take 1 tablet by mouth daily at bedtime. Authorizing Provider: SAMANTA HALE methylphenidate ER 36 mg biphasic tablet 30 tablet 0 Sig: Take 1 tablet by mouth once daily for 30 days. Do not start before December 27, 2022. Authorizing Provider: SAMANTA HALE MD PDMP website checked and validated. All prescriptions have been APPROPRIATELY filled. No suspicious activity was identified. 12/26/2022 by Samanta Hale MD Patient phones requesting refills as follows: Requested Prescriptions Pending Prescriptions Disp Refills cloNIDine HCl (CATAPRES) 0.2 mg tablet 90 tablet 1 Sig: Take 1 tablet by mouth daily at bedtime. methylphenidate ER 36 mg biphasic tablet 30 tablet 0 Sig: Take 1 tablet by mouth once daily for 30 days. TASHI-12/16/22 Labs-12/24/21 NOV-04/21/23 Please review and advise. Radha Segura LPN documented in this encounter [facility] 12-16-2022 Note HNO ID: [id number] Author: Arnol Teran PA-C Service: ? Author Type: Physician Irrigation Equipment Installer Type: Progress Notes Filed: 12/16/2022 8:44 AM Note Text: DISTANCE HEALTH VISIT MyChart Zoom Video Visit was used for evaluation of this patient. Patient consents to visit. Patient's location: [place] I have communicated my name and active licensure. The patient's identity and physical location were verified at the time of this visit. Either the patient or their legal apparel trimmings sales representative has been informed of the risks and benefits of -- and alternatives to -- treatment through a remote evaluation and consents to proceed with the evaluation remotely. Chief Complaint Patient presents with: Follow Up HPI Colette Herrera is a 37 year old female who presents here today via virtual for med check. Patient with hx of ADHD, allergies, seizures, and those as below. Patient's mother recently suddenly. Suspect cardiac arrest. No specific concerns. Past medical history, appointments, medications, allergies reviewed. Previous Medical History PAST MEDICAL HISTORY Diagnosis Date Absence seizure disorder (HCC) 2005 Dr. Darrian Acevedo ADHD (attention deficit hyperactivity disorder) 07/27/2013 ADHD (attention deficit hyperactivity disorder) Allergic rhinitis due to pollen 11/16/2015 Angioedema Childhood asthma Exercise induced. Chronic urticaria 04/11/2019 Diarrhea, unspecified 06/23/[address] 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 Endometriosis Ex-smoker 06/26/2020 Started age 20 yo, casual (mainly weekends). Quit around the age of 22 Family history of seizure disorder Father with seizures as a child , seizure free now, father's siblings with seizures as a child, first degree cousin wth absence seizure from father's side and daughter with absence seizures? 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) 01/05/2020 Seeing Rheum Previous Surgical History PAST SURGICAL HISTORY Procedure Laterality Date 2D ECHO (EXEP) 11/21/2015 EF=62%, no valve issues ADENOIDECTOMY PRIMARY Adenoidectomy DELIVERY ONLY 05/2006 , low transverse DELIVERY ONLY 04/26/11 TONSILLECTOMY PRIMARY/SECONDARY Tonsillectomy Family History FAMILY HISTORY Problem Relation Age of Onset No Ocular Disease Mother Hearing Loss Mother other (vitamin B def) Mother other (cardiac arrest) Mother 65 Cancer Father Lymphoma, unk type- Dx 50yrs age Heart Father Defibrillator, Bypass Seizures Father as child Coronary Artery Disease Father 40's Diabetes Father No Ocular Disease Father Hyperlipidemia Father Hypertension Father No Ocular Disease Sister No Ocular Disease Maternal Grandmother Diabetes Maternal Grandfather No Ocular Disease Maternal Grandfather Diabetes Paternal Grandmother No Ocular Disease Paternal Grandmother Diabetes Paternal Grandfather No Ocular Disease Paternal Grandfather Lipids Maternal Aunt Cancer Maternal Aunt Berkett's Lymphoma Lipids Maternal Uncle Diabetes Paternal Aunt Hypertension Paternal Aunt Lipids Paternal Aunt Stroke Paternal Aunt Diabetes Paternal Uncle Hypertension Paternal Uncle Lipids Paternal Uncle Seizures Paternal Uncle as children Sudden Cardiac Other 62 paternal cousin Patient Allergies ALLERGIES Allergen Reactions Plaquenil [Hydroxyc* Other: See Comments, Unknown Angio edema, increased psoriasis. Penicillins Diarrhea Current Medications Current Outpatient Medications on File Prior to Visit Medication Sig methylphenidate ER 36 mg biphasic tablet Take 1 tablet by mouth once daily for 30 days. Do not start before November 26, 2022. cloNIDine HCl (CATAPRES) 0.2 mg tablet Take 1 tablet by mouth daily at bedtime. drospirenone, contraceptive, (SLYND) 4 mg (28) tabet Take 1 tablet by mouth once daily. methylphenidate (RITALIN) 20 mg tablet Take 1 tablet by mouth every afternoon for 30 days. Do not start before August 27, 2022. gabapentin (NEURONTIN) 300 mg capsule Take 2 tablets in am, 1 tablet at midday and 2 tablets at night fluticasone (FLONASE) 50 mcg/actuation nasal spray Use 2 Sprays in each nostril once daily. Rinse mouth after use. famotidine (PEPCID) 20 mg tablet Take 1 tablet by mouth twice daily. Alpha Lipoic Acid 600 mg cap Take 1 capsule by mouth once daily. EPINEPHrine (AUVI-Q) 0.3 mg/0.3 mL auto-injector Inject 0.3 mL intramuscularly as needed. No current facility-administered medications on file prior to visit. Social History Social History Tobacco Use Smo (more content not included)... [facility] 12-16-2022 History of Presen t illness Narrative DISTANCE HEALTH VISIT MyChart Zoom Video Visit was used for evaluation of this patient. Patient consents to visit. Patient's location: [place] I have communicated my name and active licensure. The patient's identity and physical location were verified at the time of this visit. Either the patient or their legal apparel trimmings sales representative has been informed of the risks and benefits of -- and alternatives to -- treatment through a remote evaluation and consents to proceed with the evaluation remotely. Chief Complaint Patient presents with: Follow Up HPI Colette Herrera is a 37 year old female who presents here today via virtual for med check. Patient with hx of ADHD, allergies, seizures, and those as below. Patient's mother recently suddenly. Suspect cardiac arrest. No specific concerns. Past medical history, appointments, medications, allergies reviewed. Previous Medical History PAST MEDICAL HISTORY Diagnosis Date Absence seizure disorder (HCC) 2005 Dr. Darrian Acevedo ADHD (attention deficit hyperactivity disorder) 07/27/2013 ADHD (attention deficit hyperactivity disorder) Allergic rhinitis due to pollen 11/16/2015 Angioedema Childhood asthma Exercise induced. Chronic urticaria 04/11/2019 Diarrhea, unspecified 06/23/[address] 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 Endometriosis Ex-smoker 06/26/2020 Started age 20 yo, casual (mainly weekends). Quit around the age of 22 Family history of seizure disorder Father with seizures as a child , seizure free now, father's siblings with seizures as a child, first degree cousin wth absence seizure from father's side and daughter with absence seizures? 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) 01/05/2020 Seeing Rheum Previous Surgical History PAST SURGICAL HISTORY Procedure Laterality Date 2D ECHO (EXEP) 11/21/2015 EF=62%, no valve issues ADENOIDECTOMY PRIMARY <AGE 14 Adenoidectomy DELIVERY ONLY 05/2006 , low transverse DELIVERY ONLY 04/26/11 TONSILLECTOMY PRIMARY/SECONDARY <AGE 14 Tonsillectomy Family History FAMILY HISTORY Problem Relation Age of Onset No Ocular Disease Mother Hearing Loss Mother other (vitamin B def) Mother other (cardiac arrest) Mother 65 Cancer Father Lymphoma, unk type- Dx 50yrs age Heart Father Defibrillator, Bypass Seizures Father as child Coronary Artery Disease Father 40's Diabetes Father No Ocular Disease Father Hyperlipidemia Father Hypertension Father No Ocular Disease Sister No Ocular Disease Maternal Grandmother Diabetes Maternal Grandfather No Ocular Disease Maternal Grandfather Diabetes Paternal Grandmother No Ocular Disease Paternal Grandmother Diabetes Paternal Grandfather No Ocular Disease Paternal Grandfather Lipids Maternal Aunt Cancer Maternal Aunt Berkett's Lymphoma Lipids Maternal Uncle Diabetes Paternal Aunt Hypertension Paternal Aunt Lipids Paternal Aunt Stroke Paternal Aunt Diabetes Paternal Uncle Hypertension Paternal Uncle Lipids Paternal Uncle Seizures Paternal Uncle as children Sudden Cardiac Other 62 paternal cousin Patient Allergies ALLERGIES Allergen Reactions Plaquenil [Hydroxyc* Other: See Comments, Unknown Angio edema, increased psoriasis. Penicillins Diarrhea Current Medications Current Outpatient Medications on File Prior to Visit Medication Sig methylphenidate ER 36 mg biphasic tablet Take 1 tablet by mouth once daily for 30 days. Do not start before November 26, 2022. cloNIDine HCl (CATAPRES) 0.2 mg tablet Take 1 tablet by mouth daily at bedtime. drospirenone, contraceptive, (SLYND) 4 mg (28) tabet Take 1 tablet by mouth once daily. methylphenidate (RITALIN) 20 mg tablet Take 1 tablet by mouth every afternoon for 30 days. Do not start before August 27, 2022. gabapentin (NEURONTIN) 300 mg capsule Take 2 tablets in am, 1 tablet at midday and 2 tablets at night fluticasone (FLONASE) 50 mcg/actuation nasal spray Use 2 Sprays in each nostril once daily. Rinse mouth after use. famotidine (PEPCID) 20 mg tablet Take 1 tablet by mouth twice daily. Alpha Lipoic Acid 600 mg cap Take 1 capsule by mouth once daily. EPINEPHrine (AUVI-Q) 0.3 mg/0.3 mL auto-injector Inject 0.3 mL intramuscularly as needed. No current facility-administered medications on file prior to visit. Social History Social History Tobacco Use Smoking status: Former Packs/day: 0.10 Years: 3.00 Additional pack years: 0.00 Total pack years: 0.30 Types: Cigarettes Quit date: 06/07/2009 Years since quittin.5 Smokeless tobacco: Never Tobacco comments: Pt only smoked 1 pack a week. Quit smoking 06/07/2009 Vaping Use Vaping Use: Never used Substance Use Topics Alcohol use: Yes Comment: occasionally Drug use: No Review of Symptoms REVIEW OF SYSTEMS GENERAL: No weight loss, malaise or fevers RESPIRATORY: Negative for cough, hemoptysis, wheezing, COPD, dyspnea or shortness of breath CARDIOVASCULAR: Negative for chest pain, leg swelling, hypertension, CHF or palpitations EXAM: LMP 04/16/2022 (Approximate) Any vital signs collected today were done so using patient's home equipment, otherwise no vital signs due to distant health visit. PHYSICAL EXAMINATION: VIDEO EXAM: (if done, performed via video enabled technology) GENERAL: alert and appropriate, in no distress, well-hydrated, well nourished, and happy, smiling, interactive SKIN: no rash noted NECK: full ROM, no cervical LNs noted RESPIRATORY: breathing non-labored CHEST: equal chest rise with normal respiratory effort Health Maintenance List Covid-19 Vaccine(1) Never done Influenza Vaccine(1) due on 11/07/2022 Pap Testing due on 01/03/2025 HPV Testing due on 01/03/2025 DTaP,Tdap,Td Vaccine(2 - Td or Tdap) due on 05/22/2025 Depression Assessment Completed Hepatitis C Screening Completed HPV Vaccine Aged Out HIV Screening Discontinued Data reviewed ASSESSMENT/PLAN: 1. Attention deficit hyperactivity disorder (ADHD), predominantly inattentive type - ICD9: 314.00, ICD10: F90.0 Continues to do well on current dosing. Will set up follow up in 4 months for Physical. Arnol Teran PA-C documented in this encounter [facility] 12-01-2022 Miscellaneous Notes Pt r/s for 12/12/22. Julian Harris LPN Patient's complete PE (Annual, 40min appt) that was scheduled on 12/30/2022 with Arnol was cancelled due to her being out of office. It was never rescheduled. Please help patient get this re-set up with Dr. Hale or Mandie Houser. documented in this encounter [facility] 11-25-2022 Miscellaneous Notes Message sent to scheduling for assistance with appt. Julian Harris LPN Patient's complete PE that was scheduled on 12/30/2022 with Arnol was cancelled due to her being out of office. It was never rescheduled. Please help get this re-set up with patient. The following approved medication requests have been transmitted electronically. Requested Prescriptions Signed Prescriptions Disp Refills methylphenidate ER 36 mg biphasic tablet 30 tablet 0 Sig: Take 1 tablet by mouth once daily for 30 days. Do not start before November 26, 2022. Authorizing Provider: SAMANTA HALE MD PDMP website checked and validated. All prescriptions have been APPROPRIATELY filled. No suspicious activity was identified. 11/25/2022 by Samanta Hale MD Patient has been identified by name and date of : Yes Patient phones for refill(s): Requested Prescriptions Pending Prescriptions Disp Refills methylphenidate ER 36 mg biphasic tablet 30 tablet 0 Sig: Take 1 tablet by mouth once daily for 30 days. Date of last office visit in primary care: 08/12/2022 Please advise. Thank you. Michelle Byrne LPN documented in this encounter [facility] 10-27-2022 Miscellaneous Notes Patient's appt in Dec 2022 was cancelled because Arnol will be out on leave. This will need re-scheduled on or after 12/23/2022 for a complete PE. The following approved medication requests have been transmitted electronically. Requested Prescriptions Signed Prescriptions Disp Refills methylphenidate ER 36 mg biphasic tablet 30 tablet 0 Sig: Take 1 tablet by mouth once daily for 30 days. Authorizing Provider: SAMANTA HALE MD [facility] website checked and validated. All prescriptions have been APPROPRIATELY filled. No suspicious activity was identified. 10/27/2022 by Samanta Hale MD Patient has been identified by name and date of : Yes Requested Prescriptions Pending Prescriptions Disp Refills methylphenidate ER 36 mg biphasic tablet 30 tablet 0 Sig: Take 1 tablet by mouth once daily for 30 days. RX INSTRUCTIONS: Patient aware RX will be sent to pharmacy. No need to notify patient. Diamond Robert MA documented in this encounter [facility] 09-11-2022 Miscellaneous Notes The following approved medication requests have been transmitted electronically. Requested Prescriptions Signed Prescriptions Disp Refills cloNIDine HCl (CATAPRES) 0.2 mg tablet 90 tablet 1 Sig: Take 1 tablet by mouth daily at bedtime. Authorizing Provider: SAMANTA HALE MD Patient has been identified by name and date of : Yes Patient phones for refill(s): Requested Prescriptions Pending Prescriptions Disp Refills cloNIDine HCl (CATAPRES) 0.2 mg tablet 90 tablet 1 Sig: Take 1 tablet by mouth daily at bedtime. Date of last office visit in primary care: 08/12/2022 Next appointment scheduled 12/30/2022 Please advise. Thank you. Michelle Byrne LPN documented in this encounter [facility] 08-26-2022 Miscellaneous Notes The following approved medication requests have been transmitted electronically. Requested Prescriptions Signed Prescriptions Disp Refills methylphenidate ER 36 mg biphasic tablet 30 tablet 0 Sig: Take 1 tablet by mouth once daily for 30 days. Do not start before August 27, 2022. Authorizing Provider: SAMANTA HALE methylphenidate (RITALIN) 20 mg tablet 30 tablet 0 Sig: Take 1 tablet by mouth every afternoon for 30 days. Do not start before August 27, 2022. Authorizing Provider: SAMANTA HALE MD Last refill methylphenidate ER 36 mg 07/28/22 Qty: 30 with 0 refills Last refill methylphenidate 20 mg 04/30/22 Qty: 30 with 0 refills TASHI 08/12/22 NOV 12/30/22 Bj Vega LPN documented in this encounter [facility] 08-12-2022 Note HNO ID: [id number] Author: Mandie Houser APRN.[employer] Service: ? Author Type: Nurse Practitioner Type: Progress Notes Filed: 08/12/2022 1:08 PM Note Text: Chief Complaint Patient presents with: Follow Up HPI Colette Herrera is a 37 year old female who presents here today for Above Complaints.. Patient presents for routine follow up for ADHD. Patient currently on concerta and as needed ritalin. Patient does not need ritalin if able to get name brand concerta. Past medical history, appointments, medications, allergies reviewed. Previous Medical History PAST MEDICAL HISTORY Diagnosis Date Absence seizure disorder (HCC) 2005 Dr. Darrian Acevedo ADHD (attention deficit hyperactivity disorder) 07/27/2013 ADHD (attention deficit hyperactivity disorder) Allergic rhinitis due to pollen 11/16/2015 Angioedema Childhood asthma Exercise induced. Chronic urticaria 04/11/2019 Diarrhea, unspecified 06/23/[address] 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 Endometriosis Ex-smoker 06/26/2020 Started age 20 yo, casual (mainly weekends). Quit around the age of 22 Family history of seizure disorder Father with seizures as a child , seizure free now, father's siblings with seizures as a child, first degree cousin wth absence seizure from father's side and daughter with absence seizures? 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) 01/05/2020 Seeing Rheum Previous Surgical History PAST SURGICAL HISTORY Procedure Laterality Date 2D ECHO (EXEP) 11/21/2015 EF=62%, no valve issues ADENOIDECTOMY PRIMARY Adenoidectomy DELIVERY ONLY 05/2006 , low transverse DELIVERY ONLY 04/26/11 TONSILLECTOMY PRIMARY/SECONDARY Tonsillectomy Family History FAMILY HISTORY Problem Relation Age of Onset No Ocular Disease Mother Hearing Loss Mother other (vitamin B def) Mother Cancer Father Lymphoma, unk type- Dx 50yrs age Heart Father Defibrillator, Bypass Seizures Father as child Coronary Artery Disease Father 40's Diabetes Father No Ocular Disease Father Hyperlipidemia Father Hypertension Father No Ocular Disease Sister No Ocular Disease Maternal Grandmother Diabetes Maternal Grandfather No Ocular Disease Maternal Grandfather Diabetes Paternal Grandmother No Ocular Disease Paternal Grandmother Diabetes Paternal Grandfather No Ocular Disease Paternal Grandfather Lipids Maternal Aunt Cancer Maternal Aunt Berkett's Lymphoma Lipids Maternal Uncle Diabetes Paternal Aunt Hypertension Paternal Aunt Lipids Paternal Aunt Stroke Paternal Aunt Diabetes Paternal Uncle Hypertension Paternal Uncle Lipids Paternal Uncle Seizures Paternal Uncle as children Patient Allergies ALLERGIES Allergen Reactions Plaquenil [Hydroxyc* Other: See Comments, Unknown Angio edema, increased psoriasis. Penicillins Diarrhea Current Medications Current Outpatient Medications on File Prior to Visit Medication Sig methylphenidate ER 36 mg tablet Take 1 tablet by mouth once daily for 30 days. methylphenidate (RITALIN) 20 mg tablet Take 1 tablet by mouth every afternoon for 30 days. cloNIDine HCl (CATAPRES) 0.2 mg tablet Take 1 tablet by mouth daily at bedtime. Norethindrone, Contraceptive, (INCASSIA) 0.35 mg tablet Take 1 tablet by mouth once daily. gabapentin (NEURONTIN) 300 mg capsule Take 2 tablets in am, 1 tablet at midday and 2 tablets at night fluticasone (FLONASE) 50 mcg/actuation nasal spray Use 2 Sprays in each nostril once daily. Rinse mouth after use. Alpha Lipoic Acid 600 mg cap Take 1 capsule by mouth once daily. cetirizine (ALLERGY RELIEF, CETIRIZINE,) 10 mg tablet Take 1 tablet by mouth twice daily. famotidine (PEPCID) 20 mg tablet Take 1 tablet by mouth twice daily. EPINEPHrine (AUVI-Q) 0.3 mg/0.3 mL auto-injector Inject 0.3 mL intramuscularly as needed. No current facility-administered medications on file prior to visit. Social History Social History Tobacco Use Smoking status: Former Packs/day: 0.10 Years: 3.00 Pack years: 0.30 Types: Cigarettes Quit date: 06/07/2009 Years since quittin.1 Smokeless tobacco: Never Tobacco comments: Pt only smoked 1 pack a week. Quit smoking 06/07/2009 Vaping Use Vaping Use: Never used Substance Use Topics Alcohol use: Not Currently Comment: occasionally Drug use: No Review of Symptoms REVIEW OF SYSTEMS SEE HPI EXAM: BP 120/76 Pulse 120 Resp 12 Wt 77.1 kg (170 lb) LMP 04/16/2022 (Approximate) BMI 29.64 kg/m? General Appearance: Well appearing, a (more content not included)... [facility] 08-12-2022 Instructions Mandie Houser APRN.CNP - 08/12/2022 1:05 PM EDT Continue current medications. Follow up in 4 months documented in this encounter [facility] 08-12-2022 History of Presen t illness Narrative Chief Complaint Patient presents with: Follow Up HPI Colette Herrera is a 37 year old female who presents here today for Above Complaints.. Patient presents for routine follow up for ADHD. Patient currently on concerta and as needed ritalin. Patient does not need ritalin if able to get name brand concerta. Past medical history, appointments, medications, allergies reviewed. Previous Medical History PAST MEDICAL HISTORY Diagnosis Date Absence seizure disorder (HCC) 2005 Dr. Darrian Acevedo ADHD (attention deficit hyperactivity disorder) 07/27/2013 ADHD (attention deficit hyperactivity disorder) Allergic rhinitis due to pollen 11/16/2015 Angioedema Childhood asthma Exercise induced. Chronic urticaria 04/11/2019 Diarrhea, unspecified 06/23/[address] 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 Endometriosis Ex-smoker 06/26/2020 Started age 20 yo, casual (mainly weekends). Quit around the age of 22 Family history of seizure disorder Father with seizures as a child , seizure free now, father's siblings with seizures as a child, first degree cousin wth absence seizure from father's side and daughter with absence seizures? 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) 01/05/2020 Seeing Rheum Previous Surgical History PAST SURGICAL HISTORY Procedure Laterality Date 2D ECHO (EXEP) 11/21/2015 EF=62%, no valve issues ADENOIDECTOMY PRIMARY <AGE 14 Adenoidectomy DELIVERY ONLY 05/2006 , low transverse DELIVERY ONLY 04/26/11 TONSILLECTOMY PRIMARY/SECONDARY <AGE 14 Tonsillectomy Family History FAMILY HISTORY Problem Relation Age of Onset No Ocular Disease Mother Hearing Loss Mother other (vitamin B def) Mother Cancer Father Lymphoma, unk type- Dx 50yrs age Heart Father Defibrillator, Bypass Seizures Father as child Coronary Artery Disease Father 40's Diabetes Father No Ocular Disease Father Hyperlipidemia Father Hypertension Father No Ocular Disease Sister No Ocular Disease Maternal Grandmother Diabetes Maternal Grandfather No Ocular Disease Maternal Grandfather Diabetes Paternal Grandmother No Ocular Disease Paternal Grandmother Diabetes Paternal Grandfather No Ocular Disease Paternal Grandfather Lipids Maternal Aunt Cancer Maternal Aunt Berkett's Lymphoma Lipids Maternal Uncle Diabetes Paternal Aunt Hypertension Paternal Aunt Lipids Paternal Aunt Stroke Paternal Aunt Diabetes Paternal Uncle Hypertension Paternal Uncle Lipids Paternal Uncle Seizures Paternal Uncle as children Patient Allergies ALLERGIES Allergen Reactions Plaquenil [Hydroxyc* Other: See Comments, Unknown Angio edema, increased psoriasis. Penicillins Diarrhea Current Medications Current Outpatient Medications on File Prior to Visit Medication Sig methylphenidate ER 36 mg tablet Take 1 tablet by mouth once daily for 30 days. methylphenidate (RITALIN) 20 mg tablet Take 1 tablet by mouth every afternoon for 30 days. cloNIDine HCl (CATAPRES) 0.2 mg tablet Take 1 tablet by mouth daily at bedtime. Norethindrone, Contraceptive, (INCASSIA) 0.35 mg tablet Take 1 tablet by mouth once daily. gabapentin (NEURONTIN) 300 mg capsule Take 2 tablets in am, 1 tablet at midday and 2 tablets at night fluticasone (FLONASE) 50 mcg/actuation nasal spray Use 2 Sprays in each nostril once daily. Rinse mouth after use. Alpha Lipoic Acid 600 mg cap Take 1 capsule by mouth once daily. cetirizine (ALLERGY RELIEF, CETIRIZINE,) 10 mg tablet Take 1 tablet by mouth twice daily. famotidine (PEPCID) 20 mg tablet Take 1 tablet by mouth twice daily. EPINEPHrine (AUVI-Q) 0.3 mg/0.3 mL auto-injector Inject 0.3 mL intramuscularly as needed. No current facility-administered medications on file prior to visit. Social History Social History Tobacco Use Smoking status: Former Packs/day: 0.10 Years: 3.00 Pack years: 0.30 Types: Cigarettes Quit date: 06/07/2009 Years since quittin.1 Smokeless tobacco: Never Tobacco comments: Pt only smoked 1 pack a week. Quit smoking 06/07/2009 Vaping Use Vaping Use: Never used Substance Use Topics Alcohol use: Not Currently Comment: occasionally Drug use: No Review of Symptoms REVIEW OF SYSTEMS SEE HPI EXAM: BP 120/76 Pulse 120 Resp 12 Wt 77.1 kg (170 lb) LMP 04/16/2022 (Approximate) BMI 29.64 kg/m General Appearance: Well appearing, alert, in no acute distress, well-hydrated, well nourished.. Health Maintenance List COVID-19 VACCINE(1) Never done INFLUENZA(Season Ended) due on 11/07/2022 PAP TESTING due on 01/03/2025 HPV TESTING due on 01/03/2025 DTAP,TDAP,TD(2 - Td or Tdap) due on 05/22/2025 DEPRESSION ASSESSMENT Completed HEPATITIS C SCREENING Completed HIV SCREENING Discontinued ASSESSMENT/PLAN: 1. Attention deficit hyperactivity disorder (ADHD), predominantly inattentive type - ICD9: 314.00, ICD10: F90.0 -Continue Concerta -Follow up in 4 months, tox screen due at that time Mandie Houser APRN.[employer]PER[employer] documented in this encounter [facility] 05-22-2022 Miscellaneous Notes The following approved medication requests have been transmitted electronically. Requested Prescriptions Signed Prescriptions Disp Refills methylphenidate ER 36 mg tablet 30 tablet 0 Sig: Take 1 tablet by mouth once daily for 30 days. Authorizing Provider: SAMANTA HALE MD PDMP website checked and validated. All prescriptions have been APPROPRIATELY filled. No suspicious activity was identified. 05/22/2022 by Samanta Hale MD Patient phones requesting refills as follows: Requested Prescriptions Pending Prescriptions Disp Refills methylphenidate ER 36 mg tablet 30 tablet 0 Sig: Take 1 tablet by mouth once daily for 30 days. TASHI-04/30/22 Labs-12/24/21 NOV-08/05/22 med filled 04/17/22 Please review and advise. Radha Segura LPN documented in this encounter [facility] 04-30-2022 Note HNO ID: [id number] Author: Samanta Hale MD Service: ? Author Type: Physician Type: Progress Notes Filed: 04/30/2022 9:31 PM Note Text: Chief Complaint Patient presents with: Recheck: 4 month follow up HPI Colette Herrera is a 36 year old female who presents here today for 4 month follow up on medication.. Patient with Hx of ADHD and currently on Concerta 36 mg in the AM and ritalin 20 mg in the afternoon. Continues to do well with this Therapy. If on the branded Concerta does not need the ritalin in the afternoon like she does when on the generic form of concerta. Past medical history, appointments, medications, allergies reviewed. Previous Medical History PAST MEDICAL HISTORY Diagnosis Date Absence seizure disorder (HCC) 2005 Dr. Darrian Acevedo ADHD (attention deficit hyperactivity disorder) 07/27/2013 Allergic rhinitis due to pollen 11/16/2015 Angioedema Childhood asthma Exercise induced. Chronic urticaria 04/11/2019 Drug induced insomnia (HCC) 10/21/2016 Due to concerta. Endometriosis Ex-smoker 06/26/2020 Started age 20 yo, casual (mainly weekends). Quit around the age of 22 Family history of seizure disorder Father with seizures as a child , seizure free now, father's siblings with seizures as a child, first degree cousin wth absence seizure from father's side and daughter with absence seizures? 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) 01/05/2020 Seeing Rheum Previous Surgical History PAST SURGICAL HISTORY Procedure Laterality Date 2D ECHO (EXEP) 11/21/2015 EF=62%, no valve issues ADENOIDECTOMY PRIMARY Adenoidectomy DELIVERY ONLY 05/2006 , low transverse DELIVERY ONLY 04/26/11 TONSILLECTOMY PRIMARY/SECONDARY Tonsillectomy Family History FAMILY HISTORY Problem Relation Age of Onset No Ocular Disease Mother Hearing Loss Mother other (vitamin B def) Mother Cancer Father Lymphoma, unk type- Dx 50yrs age Heart Father Defibrillator, Bypass Seizures Father as child Coronary Artery Disease Father 40's Diabetes Father No Ocular Disease Father Hyperlipidemia Father Hypertension Father No Ocular Disease Sister No Ocular Disease Maternal Grandmother Diabetes Maternal Grandfather No Ocular Disease Maternal Grandfather Diabetes Paternal Grandmother No Ocular Disease Paternal Grandmother Diabetes Paternal Grandfather No Ocular Disease Paternal Grandfather Lipids Maternal Aunt Cancer Maternal Aunt Berkett's Lymphoma Lipids Maternal Uncle Diabetes Paternal Aunt Hypertension Paternal Aunt Lipids Paternal Aunt Stroke Paternal Aunt Diabetes Paternal Uncle Hypertension Paternal Uncle Lipids Paternal Uncle Seizures Paternal Uncle as children Patient Allergies ALLERGIES Allergen Reactions Plaquenil [Hydroxyc* Other: See Comments, Unknown Angio edema, increased psoriasis. Penicillins Diarrhea Current Medications Current Outpatient Medications on File Prior to Visit Medication Sig methylphenidate (RITALIN) 20 mg tablet Take 1 tablet by mouth every afternoon for 30 days. cloNIDine HCl (CATAPRES) 0.2 mg tablet Take 1 tablet by mouth daily at bedtime. Norethindrone, Contraceptive, (INCASSIA) 0.35 mg tablet Take 1 tablet by mouth once daily. gabapentin (NEURONTIN) 300 mg capsule Take 2 tablets in am, 1 tablet at midday and 2 tablets at night fluticasone (FLONASE) 50 mcg/actuation nasal spray Use 2 Sprays in each nostril once daily. Rinse mouth after use. Alpha Lipoic Acid 600 mg cap Take 1 capsule by mouth once daily. cetirizine (ALLERGY RELIEF, CETIRIZINE,) 10 mg tablet Take 1 tablet by mouth twice daily. famotidine (PEPCID) 20 mg tablet Take 1 tablet by mouth twice daily. EPINEPHrine (AUVI-Q) 0.3 mg/0.3 mL auto-injector Inject 0.3 mL intramuscularly as needed. methylphenidate ER 36 mg tablet Take 1 tablet by mouth once daily for 30 days. No current facility-administered medications on file prior to visit. Social History Social History Tobacco Use Smoking status: Former Packs/day: 0.10 Years: 3.00 Pack years: 0.30 Types: Cigarettes Quit date: 06/07/2009 Years since quittin.9 Smokeless tobacco: Never Tobacco comments: Pt only smoked 1 pack a week. Quit smoking 06/07/2009 Vaping Use Vaping Use: Never used Substance Use Topics Alcohol use: Not Currently Comment: occasionally Drug use: No Review of Symptoms REVIEW OF SYSTEMS GENERAL: No weight loss, malaise or fevers RESPIRATORY: Negative wheezing, COPD, dyspnea or changes in her occasional shortness of breath CARDIOVASCULAR: Negative for chest pain, leg swelling, hyp (more content not included)... [facility] 04-30-2022 Note HNO ID: [id number] Author: Samanta Hale MD Service: ? Author Type: Physician Type: Progress Notes Filed: 04/30/2022 9:32 PM Note Text: Duplicate note deleted. [facility] 04-30-2022 History of Presen t illness Narrative Chief Complaint Patient presents with: Recheck: 4 month follow up HPI Colette Herrera is a 36 year old female who presents here today for 4 month follow up on medication.. Patient with Hx of ADHD and currently on Concerta 36 mg in the AM and ritalin 20 mg in the afternoon. Continues to do well with this Therapy. If on the branded Concerta does not need the ritalin in the afternoon like she does when on the generic form of concerta. Past medical history, appointments, medications, allergies reviewed. Previous Medical History PAST MEDICAL HISTORY Diagnosis Date Absence seizure disorder (HCC) 2005 Dr. Darrian Acevedo ADHD (attention deficit hyperactivity disorder) 07/27/2013 Allergic rhinitis due to pollen 11/16/2015 Angioedema Childhood asthma Exercise induced. Chronic urticaria 04/11/2019 Drug induced insomnia (HCC) 10/21/2016 Due to concerta. Endometriosis Ex-smoker 06/26/2020 Started age 20 yo, casual (mainly weekends). Quit around the age of 22 Family history of seizure disorder Father with seizures as a child , seizure free now, father's siblings with seizures as a child, first degree cousin wth absence seizure from father's side and daughter with absence seizures? 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) 01/05/2020 Seeing Rheum Previous Surgical History PAST SURGICAL HISTORY Procedure Laterality Date 2D ECHO (EXEP) 11/21/2015 EF=62%, no valve issues ADENOIDECTOMY PRIMARY <AGE 14 Adenoidectomy DELIVERY ONLY 05/2006 , low transverse DELIVERY ONLY 04/26/11 TONSILLECTOMY PRIMARY/SECONDARY <AGE 14 Tonsillectomy Family History FAMILY HISTORY Problem Relation Age of Onset No Ocular Disease Mother Hearing Loss Mother other (vitamin B def) Mother Cancer Father Lymphoma, unk type- Dx 50yrs age Heart Father Defibrillator, Bypass Seizures Father as child Coronary Artery Disease Father 40's Diabetes Father No Ocular Disease Father Hyperlipidemia Father Hypertension Father No Ocular Disease Sister No Ocular Disease Maternal Grandmother Diabetes Maternal Grandfather No Ocular Disease Maternal Grandfather Diabetes Paternal Grandmother No Ocular Disease Paternal Grandmother Diabetes Paternal Grandfather No Ocular Disease Paternal Grandfather Lipids Maternal Aunt Cancer Maternal Aunt Berkett's Lymphoma Lipids Maternal Uncle Diabetes Paternal Aunt Hypertension Paternal Aunt Lipids Paternal Aunt Stroke Paternal Aunt Diabetes Paternal Uncle Hypertension Paternal Uncle Lipids Paternal Uncle Seizures Paternal Uncle as children Patient Allergies ALLERGIES Allergen Reactions Plaquenil [Hydroxyc* Other: See Comments, Unknown Angio edema, increased psoriasis. Penicillins Diarrhea Current Medications Current Outpatient Medications on File Prior to Visit Medication Sig methylphenidate (RITALIN) 20 mg tablet Take 1 tablet by mouth every afternoon for 30 days. cloNIDine HCl (CATAPRES) 0.2 mg tablet Take 1 tablet by mouth daily at bedtime. Norethindrone, Contraceptive, (INCASSIA) 0.35 mg tablet Take 1 tablet by mouth once daily. gabapentin (NEURONTIN) 300 mg capsule Take 2 tablets in am, 1 tablet at midday and 2 tablets at night fluticasone (FLONASE) 50 mcg/actuation nasal spray Use 2 Sprays in each nostril once daily. Rinse mouth after use. Alpha Lipoic Acid 600 mg cap Take 1 capsule by mouth once daily. cetirizine (ALLERGY RELIEF, CETIRIZINE,) 10 mg tablet Take 1 tablet by mouth twice daily. famotidine (PEPCID) 20 mg tablet Take 1 tablet by mouth twice daily. EPINEPHrine (AUVI-Q) 0.3 mg/0.3 mL auto-injector Inject 0.3 mL intramuscularly as needed. methylphenidate ER 36 mg tablet Take 1 tablet by mouth once daily for 30 days. No current facility-administered medications on file prior to visit. Social History Social History Tobacco Use Smoking status: Former Packs/day: 0.10 Years: 3.00 Pack years: 0.30 Types: Cigarettes Quit date: 06/07/2009 Years since quittin.9 Smokeless tobacco: Never Tobacco comments: Pt only smoked 1 pack a week. Quit smoking 06/07/2009 Vaping Use Vaping Use: Never used Substance Use Topics Alcohol use: Not Currently Comment: occasionally Drug use: No Review of Symptoms REVIEW OF SYSTEMS GENERAL: No weight loss, malaise or fevers RESPIRATORY: Negative wheezing, COPD, dyspnea or changes in her occasional shortness of breath CARDIOVASCULAR: Negative for chest pain, leg swelling, hypertension, CHF or changes in occasional palpitations GI: No nausea, vomiting, Has been having some lower abdominal pain and heavier periods and seeing [employer]. Has been getting diarrhea of and on again. Will have it for days to weeks and then stops. No blood or melena.. MUSCULOSKELETAL: Negative for new joint pain or swelling, back pain or muscle pain. Has her good and bad days with her pains (seeing Rheum). NEURO: No history of headaches, syncope, paralysis, seizures or tremors EXAM: BP 144/86 (BP Site: Right Arm, BP Position: Sitting, BP Cuff Size: Regular Adult) Pulse 80 Resp 14 Wt 75.3 kg (166 lb) LMP 04/16/2022 (Approximate) BMI 28.94 kg/m BP 122/94 Pulse 80 Resp 14 Wt 75.3 kg (166 lb) LMP 04/16/2022 (Approximate) BMI 28.94 kg/m BP 114/83 Pulse 99 Resp 14 Wt 75.3 kg (166 lb) LMP 04/16/2022 (Approximate) BMI 28.94 kg/m Last 8 Encounter BP Readings: Date: BP: 04/30/2022 122/94 03/13/2022 142/80 12/23/2021 118/79 11/20/2021 146/92 10/25/2020 118/72 06/26/2020 118/74 06/18/2020 126/75 06/08/2020 122/86 Last 5 Encounter Wt Readings: Date: Wt: 04/30/2022 75.3 kg (166 lb) 03/13/2022 76.2 kg (168 lb) 12/23/2021 74.8 kg (165 lb) 11/20/2021 73.5 kg (162 lb) 06/12/2021 71.2 kg (157 lb) General Appearance: Well appearing, alert, in no acute distress, well-hydrated, well nourished.. Neck: Supple, no adenopathy; thyroid symmetric, normal size, no bruits. Lungs: Lungs clear to auscultation. No wheezing, rhonchi, rales.. Heart: RRR without murmur, gallop, or rubs. No ectopy. Abdomen: Normal abdominal exam, Abdomen soft, non-tender. Bowel sounds normal. No masses, organomegaly. Extremities: No deformities, edema, skin discoloration,. Good capillary refill. . Peripheral Pulses: Normal. Health Maintenance List COVID-19 VACCINE(1) Never done DEPRESSION ASSESSMENT due on 03/09/2022 INFLUENZA(1) due on 09/05/2022 PAP TESTING due on 01/03/2025 HPV TESTING due on 01/03/2025 DTAP,TDAP,TD(2 - Td or Tdap) due on 05/22/2025 HEPATITIS C SCREENING Completed HIV SCREENING Discontinued Data reviewed A/P ASSESSMENT/PLAN: 1. Attention deficit hyperactivity disorder (ADHD), predominantly inattentive type - ICD9: 314.00, ICD10: F90.0 (primary diagnosis) Cont - METHYLPHENIDATE 20 MG TABLET in the afternoon with the concerta 36 mg ER in the AM. PDMP website checked and validated. All prescriptions have been APPROPRIATELY filled. No suspicious activity was identified. 04/30/2022 by Samanta Hale MD 2. Diarrhea, unspecified type - ICD9: 787.91, ICD10: R19.7 - CONSULT TO GASTROENTEROLOGY: Dr. Hernandez in [place] Requested Prescriptions Signed Prescriptions Disp Refills methylphenidate (RITALIN) 20 mg tablet 30 tablet 0 Sig: Take 1 tablet by mouth every afternoon for 30 days. F/u 4 months ADHD and 8 months WAE Samanta Hale MD Duplicate note deleted. documented in this encounter [facility] 04-17-2022 Miscellaneous Notes PDMP reviewed, refill sent. Patient has been identified by name and date of : Yes, Provider Dr. Hale Date 04/17/22 Time 8:44 am Patient phones for refill(s): Requested Prescriptions Pending Prescriptions Disp Refills methylphenidate ER 36 mg tablet 30 tablet 0 Sig: Take 1 tablet by mouth once daily for 30 days. Date of last office visit in primary care: 12/23/21 next apt 04/30/22 Last 2 Encounter Wt Readings: Date: Wt: 03/13/2022 76.2 kg (168 lb) 12/23/2021 74.8 kg (165 lb) Previous labs/tests for medication: Not applicable Thank you. Patricia Parker LPN documented in this encounter [facility] 03-19-2022 Miscellaneous Notes The following approved medication requests have been transmitted electronically. Requested Prescriptions Signed Prescriptions Disp Refills methylphenidate (RITALIN) 20 mg tablet 30 tablet 0 Sig: Take 1 tablet by mouth every afternoon for 30 days. Authorizing Provider: ARNOL TERAN methylphenidate ER 36 mg tablet 30 tablet 0 Sig: Take 1 tablet by mouth once daily for 30 days. Authorizing Provider: ARNOL TERAN PA-C Patient has been identified by name and date of : Yes Requested Prescriptions Pending Prescriptions Disp Refills methylphenidate (RITALIN) 20 mg tablet 30 tablet 0 Sig: Take 1 tablet by mouth every afternoon for 30 days. methylphenidate ER 36 mg tablet 30 tablet 0 Sig: Take 1 tablet by mouth once daily for 30 days. RX INSTRUCTIONS: Patient aware RX will be sent to pharmacy. No need to notify patient. 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 Colette is a 36 year old who presents for an annual gynecologic exam with complaints of heavier menstrual flow. Menses: cycles every 28-30 days and 7 days of flow. Taking Micronor to lighten menstrual flow but flow has gradually been increasing but clotting continues to be improved. History of migraine with aura Contraception: vasectomy HPV vaccine: unsure Last Pap: 2020 normal HPV: 2020 negative History of abnormal pap: No Last mammogram: never Sexually active: Yes History of STDS: None Patient concerns for STD exposure: No. Time with current partner: 12 year History of endometriosis: Yes Pain with intercourse: Yes, always has very occasionally Postcoital bleeding: No Documentation from previous visit of 01/23/2021 was copied and pasted, documentation has been reviewed and edited as necessary for today's visit. 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 Darrian Acevedo ADHD (attention deficit hyperactivity disorder) 07/27/2013 Allergic rhinitis due to pollen 11/16/2015 Angioedema Childhood asthma Exercise induced. Chronic urticaria 04/11/2019 Drug induced insomnia (HCC) 10/21/2016 Due to concerta. Endometriosis Ex-smoker 06/26/2020 Started age 20 yo, casual (mainly weekends). Quit around the age of 22 Family history of seizure disorder Father with seizures as a child , seizure free now, father's siblings with seizures as a child, first degree cousin wth absence seizure from father's side and daughter with absence seizures? 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) 01/05/2020 Seeing Rheum PAST SURGICAL HISTORY Procedure Laterality Date 2D ECHO (EXEP) 11/21/2015 EF=62%, no valve issues ADENOIDECTOMY PRIMARY <AGE 14 Adenoidectomy DELIVERY ONLY 05/2006 , low transverse DELIVERY ONLY 04/26/11 TONSILLECTOMY PRIMARY/SECONDARY <AGE 14 Tonsillectomy FAMILY HISTORY Problem Relation Age of Onset No Ocular Disease Mother Hearing Loss Mother Cancer Father Lymphoma, unk type- Dx 50yrs age Heart Father Defibrillator, Bypass Seizures Father as child Coronary Artery Disease Father 40's Diabetes Father No Ocular Disease Father Hyperlipidemia Father Hypertension Father No Ocular Disease Sister No Ocular Disease Maternal Grandmother No Ocular Disease Maternal Grandfather Diabetes Paternal Grandmother No Ocular Disease Paternal Grandmother Diabetes Paternal Grandfather No Ocular Disease Paternal Grandfather Lipids Maternal Aunt Cancer Maternal Aunt Berkett's Lymphoma Lipids Maternal Uncle Diabetes Paternal Aunt Hypertension Paternal Aunt Lipids Paternal Aunt Stroke Paternal Aunt Diabetes Paternal Uncle Hypertension Paternal Uncle Lipids Paternal Uncle Seizures Paternal Uncle as children SOCIAL HISTORY Social History Tobacco Use Smoking status: Former Packs/day: 0.10 Years: 3.00 Pack years: 0.30 Types: Cigarettes Quit date: 06/07/2009 Years since quittin.7 Smokeless tobacco: Never Tobacco comments: Pt only smoked 1 pack a week. Quit smoking 06/07/2009 Vaping Use Vaping Use: Never used Substance Use Topics Alcohol use: Not Currently Comment: occasionally Drug use: No REVIEW OF SYSTEMS Abdomen: No abdominal pain, nausea, vomiting, diarrhea, or constipation. No bloating, early satiety, indigestion, or increased flatulence. Bladder: No dysuria, gross hematuria, urinary frequency, urinary urgency, or incontinence. Breast: No breast lumps, nipple d/c, overlying skin changes, redness or skin retraction. Allergies and current medication updated:Yes EXAM: BP 142/80 Ht 5' 3.5 (1.61m) Wt 168 lb (76.2kg) LMP 02/25/2022 BMI 29.29 kg/(m^2). GENERAL: pleasant, female in no apparent distress HEENT: Normocephalic, atraumatic, mucus membranes moist, and no lesions NECK: Supple, full range of motion, no adenopathy, and thyroid normal DERMATOLOGY: Normal, without lesions, non-icteric, and non-hirsute BREAST: soft, non-tender, symmetric, no dominant mass, normal nipple-areolar complex, no lymphadenopathy, and no nipple discharge CHEST: Normal inspiratory effort ABDOMEN: soft, non-tender, and no masses PELVIC: external genitalia normal, normal Bartholin's glands, urethra, [place]'s glands, no vulvar lesions, no cervical lesions, good vaginal support, physiologic discharge present, normal appearing perineal body and perianal region BIMANUAL: uterus normal size, shape and consistency, no adnexal masses, and non-tender RECTOVAGINAL: deferred. NEURO: alert and oriented x3,exam grossly non-focal EXTREMITIES: normal ASSESSMENT/PLAN: 1) Health maintenance: Pap/HPV up to date. Mammogram starting age 40. Nutrition, exercise and routine health maintenance exams reviewed. 2. Menorrhagia with regular cycle - ICD9: 626.2, ICD10: N92.0 - continue Micronor for now. Discussed trial of Slynd, no insurance coverage so she will research the Slynd discount program. - PELVIC US WHI 3) Contraception: vasectomy. Contraceptive options reviewed and information provided. 4) STD screening: Declined STD check. 5) Follow up one year or sooner as needed Janell Miller APRN.SUPERVISOR [employer] documented in this encounter [facility] 02-07-2022 Miscellaneous Notes RX INSTRUCTIONS: Patient aware RX will be sent to pharmacy. No need to notify patient. Last OV: 12/23/21-with RR Last refill: Methylphenidate ER 36 01/07/22 With 30 and 0 refills Methylphenidate 20 MG 12/23/21 With 30 and 0 refills Follow up: no FM appointment scheduled at this time Keyla Galindo MA documented in this encounter [facility] 01-15-2022 History of Presen t illness Narrative NEUROLOGY FOLLOWUP VIRTUAL VISIT PATIENT NAME: Colette Herrera CLINIC NO.: [id number] DATE OF LAST SERVICE: 06/12/21 DATE OF TODAYS SERVICE 01/15/22 Referring provider: Sadie Varela [address] [place] [facility] [id number] HISTORY OF PRESENTING ILLNESS: Colette Herrera is a 35 year old female presents for multiple complaints as below: Unable to regulate temperature. She feels cold but skin feels warm to touch. Which leads to itching. Feels uncomfortable in her 'vein's in legs and arms. Legs are worse. Gets bruising. Intermittent. Daily episodes usually lasting mins to hours, usually about 3 episodes a day worsened by warm showers. H/o ADHD. Has memory problems she feels associated with these episodes. Also has 'weird' sensation in her heart. Sometimes has tachycardia. Feels presyncopal. Had a syncopal episode 2 yrs ago. If she sits her feet start to swell and she has paresthesias in both her legs symmetrically, more the lower leg but can radiate up proximally. Son and daughter have similar symptoms. Is on MTX for undifferentiated CTD for 1.5 yrs Has tried: doxepin, antihistamines. ROS: dyspnea on exertion or rest, spirometry normal INTERIM HISTORY 02/06/21: was on trileptal for H/of seizures when she was 17. Had hallcuinations on the medication. Still has symptoms of ithcing which is worse. 03/20/21: more goosebumps but less itching and sensory disturbance. 06/12/21: feel these symptoms got worse after she stopped the plaquenil. From belly button to breast had spasms lasting for days. ALA is helping. 01/15/22: clinically stable. Gabapentin helps with symptoms. PAST MEDICAL HISTORY: PAST MEDICAL HISTORY Diagnosis Date Absence seizure disorder (HCC) 2005 Dr. Darrian Acevedo ADHD (attention deficit hyperactivity disorder) 07/27/2013 Allergic rhinitis due to pollen 11/16/2015 Angioedema Childhood asthma Exercise induced. Chronic urticaria 04/11/2019 Drug induced insomnia (HCC) 10/21/2016 Due to concerta. Endometriosis Ex-smoker 06/26/2020 Started age 20 yo, casual (mainly weekends). Quit around the age of 22 Family history of seizure disorder Father with seizures as a child , seizure free now, father's siblings with seizures as a child, first degree cousin wth absence seizure from father's side and daughter with absence seizures? 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) 01/05/2020 Seeing Rheum PAST SURGICAL HISTORY: PAST SURGICAL HISTORY Procedure Laterality Date 2D ECHO (EXEP) 11/21/2015 EF=62%, no valve issues ADENOIDECTOMY PRIMARY <AGE 14 Adenoidectomy DELIVERY ONLY 05/2006 , low transverse DELIVERY ONLY 04/26/11 TONSILLECTOMY PRIMARY/SECONDARY <AGE 14 Tonsillectomy MEDICATIONS: Current Outpatient Medications Medication Sig Dispense Refill methylphenidate ER 36 mg tablet Take 1 tablet by mouth once daily for 30 days. 30 tablet 0 methylphenidate (RITALIN) 20 mg tablet Take 1 tablet by mouth every afternoon for 30 days. 30 tablet 0 gabapentin (NEURONTIN) 300 mg capsule Take 2 tablets in am, 1 tablet at midday and 2 tablets at night 150 capsule 3 INCASSIA 0.35 mg tablet TAKE 1 TABLET BY MOUTH EVERY DAY 84 tablet 0 cloNIDine HCl (CATAPRES) 0.2 mg tablet Take 1 tablet by mouth daily at bedtime. 90 tablet 1 fluticasone (FLONASE) 50 mcg/actuation nasal spray Use 2 Sprays in each nostril once daily. Rinse mouth after use. 1 Each 1 Alpha Lipoic Acid 600 mg cap Take 1 capsule by mouth once daily. 30 capsule 11 cetirizine (ALLERGY RELIEF, CETIRIZINE,) 10 mg tablet Take 1 tablet by mouth twice daily. 60 tablet 5 famotidine (PEPCID) 20 mg tablet Take 1 tablet by mouth twice daily. 180 tablet 1 folic acid 1 mg tablet TAKE 1 TABLET BY MOUTH EVERY DAY 90 tablet 3 EPINEPHrine (AUVI-Q) 0.3 mg/0.3 mL auto-injector Inject 0.3 mL intramuscularly as needed. 2 Each 2 No current facility-administered medications for this visit. concerta for many yrs ALLERGIES: Please see EPIC ALLERGIES Allergen Reactions Plaquenil [Hydroxyc* Other: See Comments, Unknown Angio edema, increased psoriasis. 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 Accompanied today by: alone Tobacco: never Alcohol: rare FAMILY HISTORY: Family History Problem Relation Age of Onset No Ocular Disease Mother Hearing Loss Mother Cancer Father Lymphoma, unk type- Dx 50yrs age Heart Father Defibrillator, Bypass Seizures Father as child Coronary Artery Disease Father 40's Diabetes Father No Ocular Disease Father Hyperlipidemia Father Hypertension Father No Ocular Disease Sister No Ocular Disease Maternal Grandmother No Ocular Disease Maternal Grandfather Diabetes Paternal Grandmother No Ocular Disease Paternal Grandmother Diabetes Paternal Grandfather No Ocular Disease Paternal Grandfather Lipids Maternal Aunt Cancer Maternal Aunt Berkett's Lymphoma Lipids Maternal Uncle Diabetes Paternal Aunt Hypertension Paternal Aunt Lipids Paternal Aunt Stroke Paternal Aunt Diabetes Paternal Uncle Hypertension Paternal Uncle Lipids Paternal Uncle Seizures Paternal Uncle as children Father had GTC as a child, was in hospital for a year. REVIEW OF SYSTEMS: 10 point ROS is otherwise negative except noted in HPI PHYSICAL EXAMINATION: virtual visit today, some parts examined previously, edited below as necessary Vital Signs: LMP 10/29/2021 (Approximate) Patient is in no distress. Sclerae and conjunctivae are clear. Oropharynx is normal. Extremities have no edema. Neurological Examination: Mental Status: Alert and oriented to person, place, and time with fluent speech. Cranial Nerves: III-IV-: Pupils equally round and reactive. Normal conjugate, extra-ocular eye movements in all directions of gaze. No nystagmus. V: Normal facial sensation. VII: Normal facial symmetry and movements. VIII: Normal hearing during encounter IX-X: Normal palatal movement. XI: Normal shoulder shrug and head rotation. XII: Normal tongue strength and range of motion, no deviation or fasciculation. Motor: Normal tone and muscle bulk with no pronator drift. No atrophy or fasciculations present on examination. Strength atleast antigravity upper and lower extremities bilaterally. Coordination: Normal rapid alternating movements; [id number] within normal limits. Gait: Normal nikolai and stress (tandem/heel/toe walking). REVIEW OF RECORDS: The relevant detail are summarized below: Blood and urine tests () Component Latest Ref Rng & Units 04/25/2020 05/30/2020 WBC 3.70 - 11.00 k/uL 9.18 RBC 3.90 - 5.20 m/uL 4.60 Hemoglobin 11.5 - 15.5 g/dL 13.3 Hematocrit 36.0 - 46.0 % 40.7 MCV 80.0 - 100.0 fL 88.5 MCH 26.0 - 34.0 pG 28.9 MCHC 30.5 - 36.0 g/dL 32.7 RDW-CV 11.5 - 15.0 % 15.0 Platelet Count 150 - 400 k/uL 373 MPV 9.0 - 12.7 fL 10.6 Neut% % 68.6 Abs Neut (ANC) 1.45 - 7.50 k/uL 6.29 Lymph% % 22.0 Abs Lymph 1.00 - 4.00 k/uL 2.02 Dillon% % 7.8 Abs Dillon <0.87 k/uL 0.72 Eosin% % 1.2 Abs Eosin <0.46 k/uL 0.11 Baso% % 0.4 Abs Baso <0.11 k/uL 0.04 Nucleated Reds 0 /100 WBC 0.0 Absolute nRBC <0.01 k/uL <0.01 Diff Type Auto Diff Protein, Total 6.3 - 8.0 g/dL 7.6 Albumin 3.9 - 4.9 g/dL 4.9 Calcium 8.5 - 10.2 mg/dL 9.5 Bilirubin, Total 0.2 - 1.3 mg/dL 0.2 Alkaline Phosphatase 34 - 123 U/L 98 AST 13 - 35 U/L 15 Glucose 74 - 99 mg/dL 110 (H) BUN 7 - 21 mg/dL 7 Creatinine 0.58 - 0.96 mg/dL 0.65 Sodium 136 - 144 mmol/L 138 Potassium 3.7 - 5.1 mmol/L 4.0 Chloride 97 - 105 mmol/L 103 CO2 22 - 30 mmol/L 23 Anion Gap 9 - 18 mmol/L 12 ALT 7 - 38 U/L 16 eGFR- >60 eGFR-All Other Races . >60 Total Cholesterol, Nonfasting <200 mg/dL 187 Triglycerides, Nonfasting <150 mg/dL 58 HDL Cholesterol, Nonfasting >39 mg/dL 45 LDL Cholesterol, Nonfasting <100 mg/dL 130 (H) Non HDL Cholesterol, Nonfasting <130 mg/dL 142 (H) VLDL Cholesterol, Nonfasting <30 mg/dL 12 Total Chol/HDL Ratio, Nonfasting <5.10 mg/dL 4.16 LDL/HDL Ratio, Nonfasting <2.54 mg/dL 2.89 (H) Hemoglobin A1C 4.3 - 5.6 % 5.6 Estimated Average Glucose mg/dL 114 EMG (2019) Study Interpretation Extensive electrodiagnostic examination of the left lower extremity and additional nerve conduction studies of the right lower extremity reveals no significant abnormalities. In particular, there is neither evidence of a left lumbosacral motor radiculopathy, nor a large fiber sensorimotor polyneuropathy affecting the lower extremity. The presence of chronic neurogenic motor unit potential changes limited to intrinsic foot muscles are of unclear clinical significance in isolation, and maybe related to local foot trauma secondary to shoe wear. MRI T spine 07/01/21 IMPRESSION: Unremarkable MRI thoracic spine without cord signal abnormality, abnormal enhancement, or significant canal or foraminal compromise. Uterine fibroid. Medical Decision Making: This is a complex case with a unknown risk of complications. IMPRESSION: 35 year old female with multiple complaints as above, most significantly of discomfort in her extremities and temperature dysregulation. Some features concerning for dysautonomia. EMG in 2019 was normal. Will test for above and small fiber neuropathy with tests below. Discussed possible diagnosis as above, differentials and that she may not have one unifying diagnosis for all her symptoms. All qs answered. 02/06/21: discussed normal results, no signs of dysautonomia. Discussed unknown etiology of her complex symptoms. Could be a manifestation of a neuropathy although uunlikely with a normal emg and skin biopsy. Discussed little downside of gabapentin trial. 03/20/21: some relief with gabapentin. Prolonged muscle spasms in abdomen corresponding to the thoracic spine. Will get imaging. 01/15/22: gabapentin helps with pain, itching. Legs worse, with gabapentin much less pain PLAN: Improvement with gabapentin. Increase to 600/300/600. Followup in 1 yr continuing ALA Time spent: 15 mins including coordination of care When available, results of the above investigations and possible further recommendations will be communicated to the patient via telephone/[employer]. Patient to call office if not contacted after expected testing turnaround time. To aid with communication, patients (and primary care physicians) can sign up for [employer] (or [employer]), which allows online appointment scheduling, transmission of labs results and chart notes, and secure email communication. To establish either account, visit [email or web address]. The nursing staff and medical assistants are a major part of your treatment team and will be handling all your phone calls and inquiries, if any. Unless explicitly told otherwise at the time of your office visit, your study results and ensuing treatment plans will be discussed during your follow-up appointment. If you do not have a follow-up appointment and wish to discuss any issues directly with me, please feel free to obtain one. It is my practice to not fill disability or any other insurance-related forms/documentation for symptoms which are outside my area of expertise. All of the office notes, study results, and other pertinent documentation generated as part of your evaluation will be available to you and to your referring physician or Primary Care Provider (PCP). This note was partially created using voice recognition software and is inherently subject to errors including those of syntax and sound-alike substitutions which may escape proofreading. In such instances, original meaning may be extrapolated by contextual derivation. Thank you for allowing me to participate in the care of your patient. If I may be of further assistance or answer any questions please do not hesitate to contact me Maryellen Mejia MD Associate Staff, Neurology Clinical Marriage And Family Teachermiddle school special education teacher [facility] NB: Note not completed till signed. documented in this encounter [facility] 01-07-2022 Miscellaneous Notes The following approved medication requests have been transmitted electronically. Requested Prescriptions Signed Prescriptions Disp Refills methylphenidate ER 36 mg tablet 30 tablet 0 Sig: Take 1 tablet by mouth once daily for 30 days. Authorizing Provider: ARNOL TERAN PA-C Patient has been identified by name and date of : Yes Patient phones for refill(s): Requested Prescriptions Pending Prescriptions Disp Refills methylphenidate ER 36 mg tablet 30 tablet 0 Sig: Take 1 tablet by mouth once daily for 30 days. Date of last office visit in primary care: 12/23/21 Please advise. Thank you. 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 Pt verbalizes understanding. UZMA Rodriguez documented in this encounter [facility] 12-25-2021 Miscellaneous Notes Patient returned call and given provider's message below with verbalized understanding. TC to patient with no answer. Left message to return call to office to receive results. UZMA Rodriguez Let patient know that her a1c is normal at 5.2% Her cholesterol has increased some. LDL up to 140 and goal is under 130 and ideally closer to 100. Recommend working on diet and increasing exercise. Her calcium was just mildly high. I just would like this recheck in 2 weeks to make sure back to normal range and not worsening. Paperwork for insurance is ready. Arnol Teran PA-C documented in this encounter [facility] 12-24-2021 Miscellaneous Notes Patient notified and would not like to see PT at this time but will call back for referral if she changes her mind Keyla Navarrete Cma Let patient know that her xray was normal. Would she want to try some Physical Therapy for her wrist pain? documented in this encounter [facility] 12-23-2021 History of Presen t illness Narrative Chief Complaint Patient presents with: Physical HPI Colette Herrera is a 36 year old female who presents here today for physical. Patient with hx of ADHD, Seizures, previous use of plaquenil, allergies, and those as below. Patient has R wrist pain for the past few month. Started over the summer while she was driving her steering went out and jerked her steering wheel which is when she first felt the pain. It improved some, but now with colder weather, she is noticing more issues again. Some pain with movement. Worse if she is holding something with a little weight. She is R handed as well. No n/t. Also she hasn't noticed much benefit in the evenings with her ritalin 10mg yet. Would like to increase this dose. Past medical history, appointments, medications, allergies reviewed. Previous Medical History PAST MEDICAL HISTORY Diagnosis Date Absence seizure disorder (HCC) 2005 Dr. Darrian Acevedo ADHD (attention deficit hyperactivity disorder) 07/27/2013 Allergic rhinitis due to pollen 11/16/2015 Angioedema Childhood asthma Exercise induced. Chronic urticaria 04/11/2019 Drug induced insomnia (HCC) 10/21/2016 Due to concerta. Endometriosis Ex-smoker 06/26/2020 Started age 20 yo, casual (mainly weekends). Quit around the age of 22 Family history of seizure disorder Father with seizures as a child , seizure free now, father's siblings with seizures as a child, first degree cousin wth absence seizure from father's side and daughter with absence seizures? 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) 01/05/2020 Seeing Rheum Previous Surgical History PAST SURGICAL HISTORY Procedure Laterality Date 2D ECHO (EXEP) 11/21/2015 EF=62%, no valve issues ADENOIDECTOMY PRIMARY <AGE 14 Adenoidectomy DELIVERY ONLY 05/2006 , low transverse DELIVERY ONLY 04/26/11 TONSILLECTOMY PRIMARY/SECONDARY <AGE 14 Tonsillectomy Family History FAMILY HISTORY Problem Relation Age of Onset No Ocular Disease Mother Hearing Loss Mother Cancer Father Lymphoma, unk type- Dx 50yrs age Heart Father Defibrillator, Bypass Seizures Father as child Coronary Artery Disease Father 40's Diabetes Father No Ocular Disease Father Hyperlipidemia Father Hypertension Father No Ocular Disease Sister No Ocular Disease Maternal Grandmother No Ocular Disease Maternal Grandfather Diabetes Paternal Grandmother No Ocular Disease Paternal Grandmother Diabetes Paternal Grandfather No Ocular Disease Paternal Grandfather Lipids Maternal Aunt Cancer Maternal Aunt Berkett's Lymphoma Lipids Maternal Uncle Diabetes Paternal Aunt Hypertension Paternal Aunt Lipids Paternal Aunt Stroke Paternal Aunt Diabetes Paternal Uncle Hypertension Paternal Uncle Lipids Paternal Uncle Seizures Paternal Uncle as children Patient Allergies ALLERGIES Allergen Reactions Plaquenil [Hydroxyc* Other: See Comments, Unknown Angio edema, increased psoriasis. Penicillins Diarrhea Current Medications Current Outpatient Medications on File Prior to Visit Medication Sig methylphenidate (RITALIN) 10 mg tablet Take 1 tablet by mouth every afternoon for 30 days. methylphenidate ER 36 mg tablet Take 1 tablet by mouth once daily for 30 days. cefADROxil (DURICEF) 500 mg capsule Take 1 capsule by mouth twice daily. predniSONE (DELTASONE) 20 mg tablet 2 tabs a day by mouth for the next 5 days gabapentin (NEURONTIN) 300 mg capsule Take 2 tablets in am, 1 tablet at midday and 2 tablets at night INCASSIA 0.35 mg tablet TAKE 1 TABLET BY MOUTH EVERY DAY cloNIDine HCl (CATAPRES) 0.2 mg tablet Take 1 tablet by mouth daily at bedtime. fluticasone (FLONASE) 50 mcg/actuation nasal spray Use 2 Sprays in each nostril once daily. Rinse mouth after use. Alpha Lipoic Acid 600 mg cap Take 1 capsule by mouth once daily. cetirizine (ALLERGY RELIEF, CETIRIZINE,) 10 mg tablet Take 1 tablet by mouth twice daily. famotidine (PEPCID) 20 mg tablet Take 1 tablet by mouth twice daily. folic acid 1 mg tablet TAKE 1 TABLET BY MOUTH EVERY DAY (Patient not taking: Reported on 11/20/2021) EPINEPHrine (AUVI-Q) 0.3 mg/0.3 mL auto-injector Inject 0.3 mL intramuscularly as needed. cholecalciferol (VITAMIN D3) 5,000 unit tab Take 5,000 Units by mouth once daily. (Patient not taking: Reported on 11/20/2021) No current facility-administered medications on file prior to visit. Social History Social History Tobacco Use Smoking status: Former Packs/day: 0.10 Years: 3.00 Pack years: 0.30 Types: Cigarettes Quit date: 06/07/2009 Years since quittin.5 Smokeless tobacco: Never Tobacco comments: Pt only smoked 1 pack a week. Quit smoking 06/07/2009 Vaping Use Vaping Use: Never used Substance Use Topics Alcohol use: Yes Alcohol/week: 0.0 standard drinks Comment: occasionally Drug use: No Review of Symptoms REVIEW OF SYSTEMS GENERAL: No weight loss, malaise or fevers HEENT: No changes in hearing or vision, no nose bleeds or other nasal problems NECK: Negative for lumps, goiter, pain and significant neck swelling RESPIRATORY: Negative for cough, hemoptysis, wheezing, COPD, dyspnea or shortness of breath CARDIOVASCULAR: Negative for chest pain, leg swelling, hypertension, CHF or palpitations GI: Negative for abdominal discomfort, blood in stools or black stools, change in bowel habit, heart burn, nausea, vomiting : No history of dysuria, frequency or incontinence MUSCULOSKELETAL: see hpi SKIN: Negative for lesions, rash, and itching PSYCH: Negative for sleep disturbance, mood disorder and recent psychosocial stressors HEMATOLOGY/LYMPHOLOGY: Negative for prolonged bleeding, bruising easily or swollen nodes ENDOCRINE: Negative for cold or heat intolerance, polyuria, polydipsia and goiter NEURO: No history of headaches, syncope, paralysis, seizures or tremors EXAM: BP 142/84 Pulse 82 Resp 14 Ht 162.6 cm (5' 4 ) Wt 74.8 kg (165 lb) LMP 10/29/2021 (Approximate) BMI 28.32 kg/m BP 118/79 Pulse 82 Resp 14 Ht 162.6 cm (5' 4 ) Wt 74.8 kg (165 lb) LMP 10/29/2021 (Approximate) BMI 28.32 kg/m General Appearance: Well appearing, alert, in no acute distress, well-hydrated, well nourished.. Skin: Skin color, texture, turgor normal, no suspicious rashes or lesions on exposed skin Head: Normocephalic, no masses, lesions, tenderness or abnormalities. Eyes: Anicteric sclera. Pupils are equally round and reactive to light. Extraocular movements are intact. . Ears: External ears normal, canals clear, TMs pearly wright.. Neck: Supple, no adenopathy; thyroid symmetric, normal size, no bruits. Lungs: Lungs clear to auscultation. No wheezing, rhonchi, rales.. Heart: RRR without murmur, gallop, or rubs. No ectopy. Abdomen: Normal abdominal exam, Abdomen soft, non-tender. Bowel sounds normal. No masses, organomegaly. Extremities: No deformities, edema, skin discoloration, clubbing or cyanosis. Good capillary refill. . Musculoskeletal: Rwrist: FROM. No pain to palp. No swelling. No erythema. NVI. Peripheral Pulses: Normal. Neurologic: Gait normal. Reflexes normal and symmetric. Sensation grossly intact.. Health Maintenance List COVID-19 VACCINE(1) Never done DEPRESSION ASSESSMENT Never done INFLUENZA(1) due on 09/05/2022 PAP TESTING due on 01/03/2025 HPV TESTING due on 01/03/2025 DTAP,TDAP,TD(2 - Td or Tdap) due on 05/22/2025 HEPATITIS C SCREENING Completed HIV SCREENING Discontinued Data reviewed ASSESSMENT/PLAN: 1. Well adult exam - ICD9: V70.0, ICD10: Z00.00 (primary diagnosis) - Counseled on healthy diet and regular exercise - Calcium intake with supplements or by diet of 1000 mg/day for under 50, 6487-3222 mg/day for 50+ - LIPID PANEL, NONFASTING - COMP METABOLIC PANEL 2. Attention deficit hyperactivity disorder (ADHD), predominantly inattentive type - ICD9: 314.00, ICD10: F90.0 Increase afternoon dose of ritalin to 20mg. Continue concerta 36 in the morning. Recheck 4 months or sooner prn. - TOX SCREEN ROUT UR - PAIN PANEL, UR QUANT - METHYLPHENIDATE 20 MG TABLET 3. 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 Undifferentiated connective tissue disease (HCC) - ICD9: 710.9, ICD10: M35.9 Follow up with rheum 5. Menstrual migraine without status migrainosus, not intractable - ICD9: 346.40, ICD10: G43.829 stable 6. Drug induced insomnia (HCC) - ICD9: 292.85, ICD10: F19.982 improved 7. Medication management - ICD9: V58.69, ICD10: Z79.899 Check: - TOX SCREEN ROUT UR - PAIN PANEL, UR QUANT 8. Encounter for lipid screening for cardiovascular disease - ICD9: V77.91, V81.2, ICD10: Z13.220, Z13.6 - LIPID PANEL, NONFASTING 9. Screening for diabetes mellitus - ICD9: V77.1, ICD10: Z13.1 - COMP METABOLIC PANEL - HGB A1C 10. Right wrist pain - ICD9: 719.43, ICD10: M25.531 Check xray. Physical Therapy if continues and xray wnl. - XR WRIST GENERAL 3V PA/LAT/OBL RIGHT Arnol Teran PA-C documented in this encounter [facility] 12-10-2021 Miscellaneous Notes Last refill methylphenidate ER 36 mg 11/07/21 Qty: 30 with 0 refills Last refill methylphenidate 10 mg 10/10/21 Qty: 30 with 0 refills TASHI 11/20/21 NOV 12/23/21 Bj Vega LPN documented in this encounter [facility] 11-25-2021 Miscellaneous Notes Patient notified of results, verbalizes understanding of instructions. Radha Segura LPN Let patient know testing for monkey pox was negative documented in this encounter [facility] 11-21-2021 Miscellaneous Notes Pt notified of same. Bj Vega LPN Let patient know testing for herpes, shingles, Syphilis and COVID were all negative. Monkey pox is pending. documented in this encounter [facility] 11-20-2021 History of Presen t illness Narrative Chief Complaint Patient presents with: Physical HPI Colette Herrera is a 36 year old female who presents here today for Rash C/O: chills/fever/abdomen pain/diarrhea/fatigue//runny nose/sore throat. These have all been off and on over the past 4 weeks. Has tested for COVID several times and all neg- last tested 11/16. Rash is the worst in her arm pits. Has it between her thighs and lateral thighs. Some may of been pustular but not all. Some have been scabbed. Daughter has a similar rash. Neither her son or have had a rash that she knows of. No lesions in the genital area. To her, looked like folliculitis that she has had in the past. Patient has been having rash since August off/on. Patient had to have a new water softener put in but using the same salt. Past medical history, appointments, medications, allergies reviewed. Previous Medical History PAST MEDICAL HISTORY Diagnosis Date Absence seizure disorder (HCC) 2005 Dr. Darrian Acevedo ADHD (attention deficit hyperactivity disorder) 07/27/2013 Allergic rhinitis due to pollen 11/16/2015 Angioedema Childhood asthma Exercise induced. Chronic urticaria 04/11/2019 Drug induced insomnia (HCC) 10/21/2016 Due to concerta. Endometriosis Ex-smoker 06/26/2020 Started age 20 yo, casual (mainly weekends). Quit around the age of 22 Family history of seizure disorder Father with seizures as a child , seizure free now, father's siblings with seizures as a child, first degree cousin wth absence seizure from father's side and daughter with absence seizures? 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) 01/05/2020 Seeing Rheum Previous Surgical History PAST SURGICAL HISTORY Procedure Laterality Date 2D ECHO (EXEP) 11/21/2015 EF=62%, no valve issues ADENOIDECTOMY PRIMARY <AGE 14 Adenoidectomy DELIVERY ONLY 05/2006 , low transverse DELIVERY ONLY 04/26/11 TONSILLECTOMY PRIMARY/SECONDARY <AGE 14 Tonsillectomy Family History FAMILY HISTORY Problem Relation Age of Onset No Ocular Disease Mother Hearing Loss Mother Cancer Father Lymphoma, unk type- Dx 50yrs age Heart Father Defibrillator, Bypass Seizures Father as child Coronary Artery Disease Father 40's Diabetes Father No Ocular Disease Father Hyperlipidemia Father Hypertension Father No Ocular Disease Sister No Ocular Disease Maternal Grandmother No Ocular Disease Maternal Grandfather Diabetes Paternal Grandmother No Ocular Disease Paternal Grandmother Diabetes Paternal Grandfather No Ocular Disease Paternal Grandfather Lipids Maternal Aunt Cancer Maternal Aunt Berkett's Lymphoma Lipids Maternal Uncle Diabetes Paternal Aunt Hypertension Paternal Aunt Lipids Paternal Aunt Stroke Paternal Aunt Diabetes Paternal Uncle Hypertension Paternal Uncle Lipids Paternal Uncle Seizures Paternal Uncle as children Patient Allergies ALLERGIES Allergen Reactions Plaquenil [Hydroxyc* Other: See Comments, Unknown Angio edema, increased psoriasis. Penicillins Diarrhea Current Medications Current Outpatient Medications on File Prior to Visit Medication Sig gabapentin (NEURONTIN) 300 mg capsule Take 2 tablets in am, 1 tablet at midday and 2 tablets at night methylphenidate ER 36 mg tablet Take 1 tablet by mouth once daily for 30 days. INCASSIA 0.35 mg tablet TAKE 1 TABLET BY MOUTH EVERY DAY cloNIDine HCl (CATAPRES) 0.2 mg tablet Take 1 tablet by mouth daily at bedtime. fluticasone (FLONASE) 50 mcg/actuation nasal spray Use 2 Sprays in each nostril once daily. Rinse mouth after use. cetirizine (ALLERGY RELIEF, CETIRIZINE,) 10 mg tablet Take 1 tablet by mouth twice daily. famotidine (PEPCID) 20 mg tablet Take 1 tablet by mouth twice daily. EPINEPHrine (AUVI-Q) 0.3 mg/0.3 mL auto-injector Inject 0.3 mL intramuscularly as needed. methylphenidate (RITALIN) 10 mg tablet Take 1 tablet by mouth every afternoon for 30 days. Do not start before October 10, 2021. Alpha Lipoic Acid 600 mg cap Take 1 capsule by mouth once daily. folic acid 1 mg tablet TAKE 1 TABLET BY MOUTH EVERY DAY (Patient not taking: Reported on 11/20/2021) cholecalciferol (VITAMIN D3) 5,000 unit tab Take 5,000 Units by mouth once daily. (Patient not taking: Reported on 11/20/2021) No current facility-administered medications on file prior to visit. Social History Social History Tobacco Use Smoking status: Former Packs/day: 0.10 Years: 3.00 Pack years: 0.30 Types: Cigarettes Quit date: 06/07/2009 Years since quittin.4 Smokeless tobacco: Never Tobacco comments: Pt only smoked 1 pack a week. Quit smoking 06/07/2009 Vaping Use Vaping Use: Never used Substance Use Topics Alcohol use: Yes Alcohol/week: 0.0 standard drinks Comment: occasionally Drug use: No Review of Symptoms REVIEW OF SYSTEMS See HPI EXAM: LMP 06/04/2021 General Appearance: Well appearing, alert, in no acute distress, well-hydrated, well nourished.. Skin: has multiple papular erythematous papules on her arms, abd and legs. No pustules. Some have been broken open.. Health Maintenance List COVID-19 VACCINE(1) Never done INFLUENZA(1) due on 11/07/2021 DEPRESSION SCREENING due on 06/05/2022 PAP TESTING due on 01/03/2025 HPV TESTING due on 01/03/2025 DTAP,TDAP,TD(2 - Td or Tdap) due on 05/22/2025 HEPATITIS C SCREENING Completed HIV SCREENING Discontinued Data reviewed A/P ASSESSMENT/PLAN: 1. Rash - ICD9: 782.1, ICD10: R21 (primary diagnosis) Check - MONKEYPOX VIRUS QUALITATIVE PCR - HSV 1,2/VZV AMP MOLECULAR DETECT - SYPHILIS TOTAL W/REFLEX 2. Viral illness - ICD9: 079.99, ICD10: B34.9 - Discussed viral etiology and rationale for treatment. - Symptomatic treatment with prn analgesia - Supportive care with fluids and rest Check - 2019 CORONAVIRUS 3. Suspected COVID-19 virus infection - ICD9: V01.79, ICD10: Z20.822 Check - 2019 CORONAVIRUS 4. Folliculitis - ICD9: 704.8, ICD10: L73.9 Possible source of rash - CEFADROXIL 500 MG CAPSULE - PREDNISONE 20 MG TABLET Requested Prescriptions Signed Prescriptions Disp Refills cefADROxil (DURICEF) 500 mg capsule 20 capsule 0 Sig: Take 1 capsule by mouth twice daily. predniSONE (DELTASONE) 20 mg tablet 10 tablet 0 Si tabs a day by mouth for the next 5 days F/u in 4-6 weeks for complete PE I spent a total of 30 minutes on the date of the service which included preparing to see the patient, [id number] patient care, completing clinical documentation, performing a medically appropriate examination, counseling and educating the patient/family/caregiver and ordering medications, tests, or procedures. Samanta Hale MD documented in this encounter [facility] 11-07-2021 Miscellaneous Notes The following approved medication requests have been transmitted electronically. Requested Prescriptions Signed Prescriptions Disp Refills methylphenidate ER 36 mg tablet 30 tablet 0 Sig: Take 1 tablet by mouth once daily for 30 days. Authorizing Provider: SAMANTA HALE MD PDMP website checked and validated. All prescriptions have been APPROPRIATELY filled. No suspicious activity was identified. 11/07/2021 by Samanta Hale MD Last refill 10/10/21 Qty: 30 with 0 refills TASHI 07/22/21 NOV 11/20/21 Bj Vega LPN documented in this encounter [facility] 11-07-2021 Miscellaneous Notes Refill approved. Needs VV or inperson visit in Jan-Feb Physician: Roberto Call from pharmacy requesting refill. Please E-Scribe Last OV: 06/12/2021with Roberto Future OV: N/A Last Refill: 06/12/2021 150 capsules/3 refills Requested Prescriptions Pending Prescriptions Disp Refills gabapentin (NEURONTIN) 300 mg capsule 150 capsule 3 Sig: Take 2 tablets in am, 1 tablet at midday and 2 tablets at night Pharmacy Name: [facility] Kent documented in this encounter [facility] 10-07-2021 Miscellaneous Notes The following approved medication requests have been transmitted electronically. Signed Prescriptions Disp Refills methylphenidate (RITALIN) 10 mg tablet 30 tablet 0 Sig: Take 1 tablet by mouth every afternoon for 30 days. Do not start before October 10, 2021. JUAN MANUEL Class: C-II ANA LILIA: No Authorizing Provider: SAMANTA HALE MD PDMP website checked and validated. All prescriptions have been APPROPRIATELY filled. No suspicious activity was identified. 10/07/2021 by Samanta Hale MD Last office visit: 07/22/21 F/u scheduled: 11/20/21 Last refilled on: #30 on 09/03/21 Ebony Villarreal Ma documented in this encounter [facility] 10-07-2021 Miscellaneous Notes The following approved medication requests have been transmitted electronically. Signed Prescriptions Disp Refills methylphenidate ER 36 mg tablet 30 tablet 0 Sig: Take 1 tablet by mouth once daily for 30 days. Do not start before October 10, 2021. JUAN MANUEL Class: C-II ANA LILIA: No Authorizing Provider: SAMANTA HALE MD Last office visit: 07/22/21 F/u scheduled: 11/20/21 Last refilled on: #30 on 09/10/21 Ebony Villarreal Ma documented in this encounter [facility] 09-10-2021 Miscellaneous Notes The following approved medication requests have been transmitted electronically. Signed Prescriptions Disp Refills cloNIDine HCl (CATAPRES) 0.2 mg tablet 90 tablet 1 Sig: Take 1 tablet by mouth daily at bedtime. ANA LILIA: No Authorizing Provider: SAMANTA HALE methylphenidate ER 36 mg tablet 30 tablet 0 Sig: Take 1 tablet by mouth once daily for 30 days. JUAN MANUEL Class: C-II ANA LILIA: No Authorizing Provider: SAMANTA HALE MD Patient last visit with PCP 07/22/21 Follow up appointment scheduled 11/20/21 Lety Carlson Ma documented in this encounter [facility] 09-05-2021 Miscellaneous Notes Images from the original note were not included. Patient notified approved Lety Carlson Ma Images from the original note were not included. Notified that [employer] does not handle PA for this insurance. Called patient to double verify information in chart correct. Reviewed scanned documents where insurance uses [id number]. Prior Authorization has been completed online at [employer] for methylphenidate (RITALIN) 10 mg tablet , will await response. [id number] Please keep encounter open until final decision has been received and documented from insurance company. Lety Carlson MA documented in this encounter [facility] 09-02-2021 Miscellaneous Notes Patient phones requesting refills as follows: Pending Prescriptions Disp Refills METHYLPHENIDATE 10 MG TABLET 30 tablet 0 Sig: Take 1 tablet by mouth every afternoon for 30 days. JUAN MANUEL Class: C-II ANA LILIA: No TASHI 07/22/21 NOV 11/20/21 Last rx written 08/10/21 # 30 with 0 refills Last urine tox screen 06/26/20 Please review and advise. Julian Harris LPN documented in this encounter [facility] 08-09-2021 Miscellaneous Notes Patient phones requesting refills as follows: Pending Prescriptions Disp Refills METHYLPHENIDATE ER 36 MG TABLET,EXTENDED RELEASE 24 HR 30 tablet 0 Sig: Take 1 tablet by mouth once daily for 30 days. JUAN MANUEL Class: C-II ANA LILIA: No TASHI 07/22/21 11/20/21 Please review and advise. Julian Harris LPN documented in this encounter [facility] 07-01-2021 History of Presen t illness Narrative Radiology Service Progress Note DATE OF SERVICE: July 01, 2021 TIME: 11:36 AM PATIENT IDENTITY VERIFICATION COMPLETED USING TWO (2) STANDARD IDENTIFIERS: Name and Date of confirmed by patient verbally. FALL SCREENING: Has the patient had 2 falls in the last year or 1 fall with injury or currently using an Ambulatory Assistive Device (Walker, Cane, Wheelchair, Crutches, etc.)? No PATIENT GENDER DATA: Female. status: : No status: NO. PATIENT RELEVANT IMPLANT DATA REVIEWED: Yes ALLERGIES: Reviewed and unchanged CONTRAST ALLERGY: NO. EXAM: MRI - CONTRAST TYPE: GROUP II PERIPHERAL IV DATA: Ambulatory: A peripheral IV was started in the Left antecubital site with a Angio cath: 22 gauge. RADIOLOGY DEPARTMENT: MR; Exam(s) Completed: Spine: Thoracic spine SIGNATURE: RT Surinder(Ethan) PATIENT NAME: Colette Herrera DATE: July 01, 2021 TIME: 11:36 AM documented in this encounter [facility] 06-12-2021 History of Presen t illness Narrative NEUROLOGY FOLLOWUP VIRTUAL VISIT PATIENT NAME: Colette Herrera CLINIC NO.: [id number] DATE OF LAST SERVICE: 03/20/21 DATE OF TODAYS SERVICE 06/12/21 Referring provider: Sadie Varela [address] [place] [facility] [id number] HISTORY OF PRESENTING ILLNESS: Colette Herrera is a 35 year old female presents for multiple complaints as below: Unable to regulate temperature. She feels cold but skin feels warm to touch. Which leads to itching. Feels uncomfortable in her 'vein's in legs and arms. Legs are worse. Gets bruising. Intermittent. Daily episodes usually lasting mins to hours, usually about 3 episodes a day worsened by warm showers. H/o ADHD. Has memory problems she feels associated with these episodes. Also has 'weird' sensation in her heart. Sometimes has tachycardia. Feels presyncopal. Had a syncopal episode 2 yrs ago. If she sits her feet start to swell and she has paresthesias in both her legs symmetrically, more the lower leg but can radiate up proximally. Son and daughter have similar symptoms. Is on MTX for undifferentiated CTD for 1.5 yrs Has tried: doxepin, antihistamines, ROS: dyspnea on exertion or rest, spirometry normal INTERIM HISTORY 02/06/21: was on trileptal for H/of seizures when she was 17. Had hallcuinations on the medication. Still has symptoms of ithcing which is worse. 03/20/21: more goosebumps but less itching and sensory disturbance. 06/12/21: feel these symptoms got worse after she stopped the plaquenil. From belly button to breast had spasms lasting for days. ALA is helping. PAST MEDICAL HISTORY: PAST MEDICAL HISTORY Diagnosis Date Absence seizure disorder (HCC) 2005 Dr. Darrian Acevedo ADHD (attention deficit hyperactivity disorder) 07/27/2013 Allergic rhinitis due to pollen 11/16/2015 Angioedema Childhood asthma Exercise induced. Chronic urticaria 04/11/2019 Drug induced insomnia (HCC) 10/21/2016 Due to concerta. Endometriosis Ex-smoker 06/26/2020 Started age 20 yo, casual (mainly weekends). Quit around the age of 22 Family history of seizure disorder Father with seizures as a child , seizure free now, father's siblings with seizures as a child, first degree cousin wth absence seizure from father's side and daughter with absence seizures? 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) 01/05/2020 Seeing Rheum PAST SURGICAL HISTORY: PAST SURGICAL HISTORY Procedure Laterality Date 2D ECHO (EXEP) 11/21/2015 EF=62%, no valve issues ADENOIDECTOMY PRIMARY <AGE 12 Adenoidectomy DELIVERY ONLY 05/2006 , low transverse DELIVERY ONLY 04/26/11 TONSILLECTOMY PRIMARY/SECONDARY <AGE 12 Tonsillectomy MEDICATIONS: Current Outpatient Medications Medication Sig Dispense Refill Alpha Lipoic Acid 600 mg cap Take 1 capsule by mouth once daily. 30 capsule 11 cetirizine (ALLERGY RELIEF, CETIRIZINE,) 10 mg tablet Take 1 tablet by mouth twice daily. 60 tablet 5 methylphenidate ER 36 mg tablet Take 1 tablet by mouth once daily for 30 days. 30 tablet 0 gabapentin (NEURONTIN) 300 mg capsule Take 1 capsule by mouth three times daily for 180 days. 90 capsule 5 fluticasone (FLONASE) 50 mcg/actuation nasal spray Use 2 Sprays in each nostril once daily. Rinse mouth after use. 1 Each 1 cloNIDine HCl (CATAPRES) 0.2 mg tablet Take 1 tablet by mouth daily at bedtime. 90 tablet 1 methylphenidate ER 18 mg tablet Take 1 tab each afternoon 1-2pm 30 tablet 0 Norethindrone, Contraceptive, 0.35 mg tablet TAKE 1 TABLET BY MOUTH EVERY DAY 84 tablet 3 famotidine (PEPCID) 20 mg tablet Take 1 tablet by mouth twice daily. 180 tablet 1 folic acid 1 mg tablet TAKE 1 TABLET BY MOUTH EVERY DAY 90 tablet 3 EPINEPHrine (AUVI-Q) 0.3 mg/0.3 mL auto-injector Inject 0.3 mL intramuscularly as needed. 2 Each 2 cholecalciferol (VITAMIN D-3) 5,000 unit tab Take 5,000 Units by mouth once daily. No current facility-administered medications for this visit. concerta for many yrs ALLERGIES: Please see EPIC ALLERGIES Allergen Reactions Plaquenil [Hydroxyc* Other: See Comments, Unknown Angio edema, increased psoriasis. 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 Accompanied today by: alone Tobacco: never Alcohol: rare FAMILY HISTORY: Family History Problem Relation Age of Onset No Ocular Disease Mother Hearing Loss Mother Cancer Father Lymphoma, unk type- Dx 50yrs age Heart Father Defibrillator, Bypass Seizures Father as child Coronary Artery Disease Father 40's Diabetes Father No Ocular Disease Father Hyperlipidemia Father Hypertension Father No Ocular Disease Sister No Ocular Disease Maternal Grandmother No Ocular Disease Maternal Grandfather Diabetes Paternal Grandmother No Ocular Disease Paternal Grandmother Diabetes Paternal Grandfather No Ocular Disease Paternal Grandfather Lipids Maternal Aunt Cancer Maternal Aunt Berkett's Lymphoma Lipids Maternal Uncle Diabetes Paternal Aunt Hypertension Paternal Aunt Lipids Paternal Aunt Stroke Paternal Aunt Diabetes Paternal Uncle Hypertension Paternal Uncle Lipids Paternal Uncle Seizures Paternal Uncle as children Father had GTC as a child, was in hospital for a year. REVIEW OF SYSTEMS: 10 point ROS is otherwise negative except noted in HPI PHYSICAL EXAMINATION: virtual visit today, some parts examined previously, edited below as necessary Vital Signs: Ht 162.6 cm (5' 4 ) Wt 71.2 kg (157 lb) LMP 06/04/2021 BMI 26.95 kg/m Patient is in no distress. Sclerae and conjunctivae are clear. Oropharynx is normal. Extremities have no edema. Neurological Examination: Mental Status: Alert and oriented to person, place, and time with fluent speech. Cranial Nerves: III-IV-: Pupils equally round and reactive. Normal conjugate, extra-ocular eye movements in all directions of gaze. No nystagmus. V: Normal facial sensation. VII: Normal facial symmetry and movements. VIII: Normal hearing during encounter IX-X: Normal palatal movement. XI: Normal shoulder shrug and head rotation. XII: Normal tongue strength and range of motion, no deviation or fasciculation. Motor: Normal tone and muscle bulk with no pronator drift. No atrophy or fasciculations present on examination. Strength atleast antigravity upper and lower extremities bilaterally. Coordination: Normal rapid alternating movements; [id number] within normal limits. Gait: Normal nikolai and stress (tandem/heel/toe walking). REVIEW OF RECORDS: The relevant detail are summarized below: Blood and urine tests () Component Latest Ref Rng & Units 04/25/2020 05/30/2020 WBC 3.70 - 11.00 k/uL 9.18 RBC 3.90 - 5.20 m/uL 4.60 Hemoglobin 11.5 - 15.5 g/dL 13.3 Hematocrit 36.0 - 46.0 % 40.7 MCV 80.0 - 100.0 fL 88.5 MCH 26.0 - 34.0 pG 28.9 MCHC 30.5 - 36.0 g/dL 32.7 RDW-CV 11.5 - 15.0 % 15.0 Platelet Count 150 - 400 k/uL 373 MPV 9.0 - 12.7 fL 10.6 Neut% % 68.6 Abs Neut (ANC) 1.45 - 7.50 k/uL 6.29 Lymph% % 22.0 Abs Lymph 1.00 - 4.00 k/uL 2.02 Dillon% % 7.8 Abs Dillon <0.87 k/uL 0.72 Eosin% % 1.2 Abs Eosin <0.46 k/uL 0.11 Baso% % 0.4 Abs Baso <0.11 k/uL 0.04 Nucleated Reds 0 /100 WBC 0.0 Absolute nRBC <0.01 k/uL <0.01 Diff Type Auto Diff Protein, Total 6.3 - 8.0 g/dL 7.6 Albumin 3.9 - 4.9 g/dL 4.9 Calcium 8.5 - 10.2 mg/dL 9.5 Bilirubin, Total 0.2 - 1.3 mg/dL 0.2 Alkaline Phosphatase 34 - 123 U/L 98 AST 13 - 35 U/L 15 Glucose 74 - 99 mg/dL 110 (H) BUN 7 - 21 mg/dL 7 Creatinine 0.58 - 0.96 mg/dL 0.65 Sodium 136 - 144 mmol/L 138 Potassium 3.7 - 5.1 mmol/L 4.0 Chloride 97 - 105 mmol/L 103 CO2 22 - 30 mmol/L 23 Anion Gap 9 - 18 mmol/L 12 ALT 7 - 38 U/L 16 eGFR- >60 eGFR-All Other Races . >60 Total Cholesterol, Nonfasting <200 mg/dL 187 Triglycerides, Nonfasting <150 mg/dL 58 HDL Cholesterol, Nonfasting >39 mg/dL 45 LDL Cholesterol, Nonfasting <100 mg/dL 130 (H) Non HDL Cholesterol, Nonfasting <130 mg/dL 142 (H) VLDL Cholesterol, Nonfasting <30 mg/dL 12 Total Chol/HDL Ratio, Nonfasting <5.10 mg/dL 4.16 LDL/HDL Ratio, Nonfasting <2.54 mg/dL 2.89 (H) Hemoglobin A1C 4.3 - 5.6 % 5.6 Estimated Average Glucose mg/dL 114 EMG (2019) Study Interpretation Extensive electrodiagnostic examination of the left lower extremity and additional nerve conduction studies of the right lower extremity reveals no significant abnormalities. In particular, there is neither evidence of a left lumbosacral motor radiculopathy, nor a large fiber sensorimotor polyneuropathy affecting the lower extremity. The presence of chronic neurogenic motor unit potential changes limited to intrinsic foot muscles are of unclear clinical significance in isolation, and maybe related to local foot trauma secondary to shoe wear. Medical Decision Making: This is a complex case with a unknown risk of complications. IMPRESSION: 35 year old female with multiple complaints as above, most significantly of discomfort in her extremities and temperature dysregulation. Some features concerning for dysautonomia. EMG in 2019 was normal. Will test for above and small fiber neuropathy with tests below. Discussed possible diagnosis as above, differentials and that she may not have one unifying diagnosis for all her symptoms. All qs answered. 02/06/21: discussed normal results, no signs of dysautonomia. Discussed unknown etiology of her complex symptoms. Could be a manifestation of a neuropathy although uunlikely with a normal emg and skin biopsy. Discussed little downside of gabapentin trial. 03/20/21: some relief with gabapentin. Prolonged muscle spasms in abdomen corresponding to the thoracic spine. Will get imaging. PLAN: Improvement with gabapentin. Increase to 600/300/600. Followup in 2-3 mths, call sooner with concerns MRI T spine w/wo continuing ALA Time spent: 20 mins including coordination of care When available, results of the above investigations and possible further recommendations will be communicated to the patient via telephone/MyChart. Patient to call office if not contacted after expected testing turnaround time. To aid with communication, patients (and primary care physicians) can sign up for [employer] (or [employer]), which allows online appointment scheduling, transmission of labs results and chart notes, and secure email communication. To establish either account, visit [email or web address]. The nursing staff and medical assistants are a major part of your treatment team and will be handling all your phone calls and inquiries, if any. Unless explicitly told otherwise at the time of your office visit, your study results and ensuing treatment plans will be discussed during your follow-up appointment. If you do not have a follow-up appointment and wish to discuss any issues directly with me, please feel free to obtain one. It is my practice to not fill disability or any other insurance-related forms/documentation for symptoms which are outside my area of expertise. All of the office notes, study results, and other pertinent documentation generated as part of your evaluation will be available to you and to your referring physician or Primary Care Provider (PCP). This note was partially created using voice recognition software and is inherently subject to errors including those of syntax and sound-alike substitutions which may escape proofreading. In such instances, original meaning may be extrapolated by contextual derivation. Thank you for allowing me to participate in the care of your patient. If I may be of further assistance or answer any questions please do not hesitate to contact me Maryellen Mejia MD Associate Staff, Neurology Clinical Marriage And Family Teachermiddle school special education teacher [facility] NB: Note not completed till signed. documented in this encounter [facility] 06-12-2021 Nurse Note Virtual visit documented in this encounter [facility] 06-05-2021 Miscellaneous Notes The following approved medication requests have been transmitted electronically. Signed Prescriptions Disp Refills methylphenidate ER 36 mg tablet 30 tablet 0 Sig: Take 1 tablet by mouth once daily for 30 days. JUAN MANUEL Class: C-II ANA LILIA: No Authorizing Provider: ARNOL TERAN PA-C Patient last visit with PCP 03/22/21 Follow up appointment scheduled 07/22/21 Lety Carlson Ma documented in this encounter [facility] Demyelinating disease of central nervous system (HCC) Demyelinating disease of central nervous system, unspecified Disturbance of skin sensation [facility] [place] [facility] Diagnosis Demyelinating disease of central nervous system (HCC) Demyelinating disease of central nervous system, unspecified [facility] Diagnosis Attention deficit hyperactivity disorder (ADHD), predominantly inattentive type [facility] [place] [facility] Diagnosis Attention deficit hyperactivity disorder (ADHD), predominantly inattentive type [facility] [place] [facility] Diagnosis Attention deficit hyperactivity disorder (ADHD), predominantly inattentive type [facility] [place] [facility] Diagnosis Attention deficit hyperactivity disorder (ADHD), predominantly inattentive type [facility] [place] [facility] Diagnosis Rash- Primary Rash and other nonspecific skin eruption Viral illness Unspecified viral infection, in conditions classified elsewhere and of unspecified site Suspected COVID-19 virus infection Folliculitis Other specified disease of hair and hair follicles [facility] [place] [facility]* Diagnosis Attention deficit hyperactivity disorder (ADHD), predominantly inattentive type [facility] Diagnosis Well adult exam- Primary Routine general medical examination at a health care facility Attention deficit hyperactivity disorder (ADHD), predominantly inattentive type Nonintractable absence epilepsy with status epilepticus (HCC) Undifferentiated connective tissue disease (HCC) Unspecified diffuse connective tissue disease Menstrual migraine without status migrainosus, not intractable Menstrual migraine, without mention of intractable migraine without mention of status migrainosus Drug induced insomnia (HCC) Drug induced sleep disorders Medication management Encounter for long-term (current) use of other medications Encounter for lipid screening for cardiovascular disease Screening for lipoid disorders Screening for diabetes mellitus Right wrist pain Pain in joint, forearm documented in this encounter [facility] note* Diagnosis Hypercalcemia- Primary documented in this encounter [facility] note* Diagnosis Disturbance of skin sensation- Primary documented in this encounter [facility] note* Diagnosis Attention deficit hyperactivity disorder (ADHD), predominantly inattentive type documented in this encounter [facility] note* Diagnosis Encounter for gynecological examination (general) (routine) without abnormal findings- Primary Menorrhagia with regular cycle Excessive or frequent menstruation Surveillance for control, oral contraceptives Surveillance of previously prescribed contraceptive pill documented in this encounter [facility] note* Diagnosis Menorrhagia with regular cycle Excessive or frequent menstruation documented in this encounter [facility] note* Diagnosis Attention deficit hyperactivity disorder (ADHD), predominantly inattentive type- Primary Diarrhea, unspecified type documented in this encounter [facility] note* Diagnosis Attention deficit hyperactivity disorder (ADHD), predominantly inattentive type- Primary documented in this encounter [facility] note* Diagnosis Attention deficit hyperactivity disorder (ADHD), predominantly inattentive type documented in this encounter [facility] note* Diagnosis Attention deficit hyperactivity disorder (ADHD), predominantly inattentive type documented in this encounter [facility] note* Diagnosis Attention deficit hyperactivity disorder (ADHD), predominantly inattentive type- Primary documented in this encounter [facility] note* Diagnosis Attention deficit hyperactivity disorder (ADHD), predominantly inattentive type documented in this encounter [facility] note* Diagnosis Right ankle pain, unspecified chronicity documented in this encounter [facility] note* Diagnosis Hives- Primary Urticaria, unspecified Sinus tachycardia Other specified cardiac dysrhythmias documented in this encounter [facility] for referral (narrative)* Diagnostic Procedure Only (Routine) - Pending Review Specialty Diagnoses / Procedures Referred By [place] Referred To Contact XR IMAGING Diagnoses Right wrist pain Procedures XR WRIST GENERAL 3V PA/LAT/OBL RIGHT RADEX WRIST COMPLETE MINIMUM 3 VIEWS Arnol Teran PA-C [address] [place] [address] Xr Imaging Referral ID Status Reason Start Date Expiration Date Visits Requested Visits Authorized [id number] Pending Review Auto-Generat ed Referral 2 01/22/2023 1 1 [facility] for referral (narrative)* Diagnostic Procedure Only (Routine) - Pending Review Specialty Diagnoses / Procedures Referred By Contac t Referred To Contact [facility] Diagnoses Menorrhagia with regular cycle Procedures PELVIC US WHI US PELVIC NONOBSTETRIC REAL-TIME IMAGE COMPLETE Janell Miller APRN.SUPERVISOR [employer] [address] [address] [facility] [address] [place] [id number] Referral ID Status Reason Start Date Expiration Date Visits Requested Visits Authorized [id number] Pending Review Auto-Generat ed Referral 03/13/2022 03/13/2023 1 1 [facility] for referral (narrative)* Diagnostic Procedure Only (Urgent) - Closed Specialty Diagnoses / Procedures Referred By Contac t Referred To Contact XR IMAGING Diagnoses Right ankle pain, unspecified chronicity Procedures XR ANKLE GENERAL 3V AP/LAT/OBL RIGHT RADEX ANKLE COMPLETE MINIMUM 3 VIEWS Mikey Zarate MD [address] [place] [address] [place] [id number] Referral ID Status Reason Start Date Expiration Date V isits Requested Visits Authorized [id number] Closed Auto-Generate d Referral 01/09/2023 02/08/2024 1 1 [facility] for referral (narrative)* Outpatient Procedure (Routine) - Pending Review Specialty Diagnoses / Procedures [facility] Diagnoses Sinus tachycardia Procedures ECG COMPLETE ECG ROUTINE ECG W/LEAST 12 LDS W/I&R Samanta Hale MD [address] [place] [address] [facility] [address] [place] [address] Referral ID Status Reason Start Date Expiration Date Visits Requested Visits Authorized [id number] Pending Review Auto-Generat ed Referral 04/10/2023 04/09/2024 1 1 [facility] for visit Narrative* Diagnostic Procedure Only (Routine) - Closed Specialty Diagnoses / Procedures Referred By Contac t Referred To Contact [facility] Diagnoses Menorrhagia with regular cycle Procedures PELVIC US WHI US PELVIC NONOBSTETRIC REAL-TIME IMAGE COMPLETE Janell Miller APRN.SUPERVISOR [employer] [address] [place] [address] [facility] [address] [place] [address] Referral ID Status Reason Start Date Expiration Date V isits Requested Visits Authorized [id number] Closed Auto-Generate d Referral 03/13/2022 03/13/2023 1 1 [facility] for visit Narrative* Diagnostic Procedure Only (Urgent) - Closed Specialty Diagnoses / Procedures Referred By Contac t Referred To Contact XR IMAGING Diagnoses Right ankle pain, unspecified chronicity Procedures XR ANKLE GENERAL 3V AP/LAT/OBL RIGHT RADEX ANKLE COMPLETE MINIMUM 3 VIEWS Mikey Zarate MD [address] [place] [address] [place] [id number] Referral ID Status Reason Start Date Expiration Date V isits Requested Visits Authorized [id number] Closed Auto-Generate d Referral 01/09/2023 02/08/2024 1 1 [facility] Reason for Referral Specialty Diagnoses / Procedures Referred By Contac t Referred To Contact MR IMAGING Diagnoses Demyelinating disease of central nervous system (HCC) Procedures MRI THORACIC SPINE WO/W IVCON MRI SPINAL CANAL THORACIC W/O & W/CONTR Maryellen Howard MD [address] [place] [address] Mr Imaging Referral ID Status Reason Start Date Expiration Date Visits Requested Visits Authorized [id number] Pending Review Auto-Generat ed Referral 06/12/2021 07/12/2022 1 1 Referral ID Status Reason Start Date Expiration Date V isits Requested Visits Authorized [id number] Closed Auto-Generate d Referral 06/12/2021 07/12/2022 1 1 Specialty Diagnoses / Procedures Referred By Contac t Referred To Contact Diagnoses Attention deficit hyperactivity disorder (ADHD), predominantly inattentive type Arnol Teran PA-C [address] [place] [address] Referral ID Status Reason Start Date Expiration Date Visits Re quested Visits Authorized [id number] Closed 1 1 Specialty Diagnoses / Procedures Referred By Contac t Referred To Contact Gastroenterology Diagnoses Diarrhea, unspecified type Procedures CONSULT TO GASTROENTEROLOGY OFFICE/OUTPATIENT [facility] 60-74 MINUTES Samanta Hale MD [address] [place] [address] Referral ID Status Reason Start Date Expiration Date Visits Requested Visits Authorized [id number] Authorized PCP Requested Referral 04/30/2022 04/30/2023 1 1 Summary Purpose Family History No Family History Records Found Advance Directives No Advanced Directives Records Found Additional Source Comments Source Comments (unrecognize d section and content) In the event this informatio n is protected by the Federal Confidentiality of Alcohol and Drug Abuse Patient Records regulations: The Federal rules restrict any use of the information to criminally investigate or prosecute any alcohol or drug abuse patient.[facility] the event this information is protected by the Federal Confidentiality of Alcohol and Drug Abuse Patient Records regulations: The Federal rules restrict any use of the information to criminally investigate or prosecute any alcohol or drug abuse patient.[facility] CenterIn the event this information is protected by the Federal Confidentiality of Alcohol and Drug Abuse Patient Records regulations: The Federal rules restrict any use of the information to criminally investigate or prosecute any alcohol or drug abuse patient.[facility] CenterIn the event this information is protected by the Federal Confidentiality of Alcohol and Drug Abuse Patient Records regulations: The Federal rules restrict any use of the information to criminally investigate or prosecute any alcohol or drug abuse patient.[facility] CenterIn the event this information is protected by the Federal Confidentiality of Alcohol and Drug Abuse Patient Records regulations: The Federal rules restrict any use of the information to criminally investigate or prosecute any alcohol or drug abuse patient.[facility] CenterIn the event this information is protected by the Federal Confidentiality of Alcohol and Drug Abuse Patient Records regulations: The Federal rules restrict any use of the information to criminally investigate or prosecute any alcohol or drug abuse patient.[facility] CenterIn the event this information is protected by the Federal Confidentiality of Alcohol and Drug Abuse Patient Records regulations: The Federal rules restrict any use of the information to criminally investigate or prosecute any alcohol or drug abuse patient.[facility] CenterIn the event this information is protected by the Federal Confidentiality of Alcohol and Drug Abuse Patient Records regulations: The Federal rules restrict any use of the information to criminally investigate or prosecute any alcohol or drug abuse patient.[facility] CenterIn the event this information is protected by the Federal Confidentiality of Alcohol and Drug Abuse Patient Records regulations: The Federal rules restrict any use of the information to criminally investigate or prosecute any alcohol or drug abuse patient.[facility] CenterIn the event this information is protected by the Federal Confidentiality of Alcohol and Drug Abuse Patient Records regulations: The Federal rules restrict any use of the information to criminally investigate or prosecute any alcohol or drug abuse patient.[facility] CenterIn the event this information is protected by the Federal Confidentiality of Alcohol and Drug Abuse Patient Records regulations: The Federal rules restrict any use of the information to criminally investigate or prosecute any alcohol or drug abuse patient.[facility] CenterIn the event this information is protected by the Federal Confidentiality of Alcohol and Drug Abuse Patient Records regulations: The Federal rules restrict any use of the information to criminally investigate or prosecute any alcohol or drug abuse patient.[facility] CenterIn the event this information is protected by the Federal Confidentiality of Alcohol and Drug Abuse Patient Records regulations: The Federal rules restrict any use of the information to criminally investigate or prosecute any alcohol or drug abuse patient.[facility] CenterIn the event this information is protected by the Federal Confidentiality of Alcohol and Drug Abuse Patient Records regulations: The Federal rules restrict any use of the information to criminally investigate or prosecute any alcohol or drug abuse patient.[facility] CenterIn the event this information is protected by the Federal Confidentiality of Alcohol and Drug Abuse Patient Records regulations: The Federal rules restrict any use of the information to criminally investigate or prosecute any alcohol or drug abuse patient.[facility] CenterIn the event this information is protected by the Federal Confidentiality of Alcohol and Drug Abuse Patient Records regulations: The Federal rules restrict any use of the information to criminally investigate or prosecute any alcohol or drug abuse patient.[facility] CenterIn the event this information is protected by the Federal Confidentiality of Alcohol and Drug Abuse Patient Records regulations: The Federal rules restrict any use of the information to criminally investigate or prosecute any alcohol or drug abuse patient.[facility] CenterIn the event this information is protected by the Federal Confidentiality of Alcohol and Drug Abuse Patient Records regulations: The Federal rules restrict any use of the information to criminally investigate or prosecute any alcohol or drug abuse patient.[facility] CenterIn the event this information is protected by the Federal Confidentiality of Alcohol and Drug Abuse Patient Records regulations: The Federal rules restrict any use of the information to criminally investigate or prosecute any alcohol or drug abuse patient.[facility] CenterIn the event this information is protected by the Federal Confidentiality of Alcohol and Drug Abuse Patient Records regulations: The Federal rules restrict any use of the information to criminally investigate or prosecute any alcohol or drug abuse patient.[facility] CenterIn the event this information is protected by the Federal Confidentiality of Alcohol and Drug Abuse Patient Records regulations: The Federal rules restrict any use of the information to criminally investigate or prosecute any alcohol or drug abuse patient.[facility] CenterIn the event this information is protected by the Federal Confidentiality of Alcohol and Drug Abuse Patient Records regulations: The Federal rules restrict any use of the information to criminally investigate or prosecute any alcohol or drug abuse patient.[facility] CenterIn the event this information is protected by the Federal Confidentiality of Alcohol and Drug Abuse Patient Records regulations: The Federal rules restrict any use of the information to criminally investigate or prosecute any alcohol or drug abuse patient.[facility] CenterIn the event this information is protected by the Federal Confidentiality of Alcohol and Drug Abuse Patient Records regulations: The Federal rules restrict any use of the information to criminally investigate or prosecute any alcohol or drug abuse patient.[facility] CenterIn the event this information is protected by the Federal Confidentiality of Alcohol and Drug Abuse Patient Records regulations: The Federal rules restrict any use of the information to criminally investigate or prosecute any alcohol or drug abuse patient.[facility] CenterIn the event this information is protected by the Federal Confidentiality of Alcohol and Drug Abuse Patient Records regulations: The Federal rules restrict any use of the information to criminally investigate or prosecute any alcohol or drug abuse patient.[facility] CenterIn the event this information is protected by the Federal Confidentiality of Alcohol and Drug Abuse Patient Records regulations: The Federal rules restrict any use of the information to criminally investigate or prosecute any alcohol or drug abuse patient.[facility] CenterIn the event this information is protected by the Federal Confidentiality of Alcohol and Drug Abuse Patient Records regulations: The Federal rules restrict any use of the information to criminally investigate or prosecute any alcohol or drug abuse patient.[facility] CenterIn the event this information is protected by the Federal Confidentiality of Alcohol and Drug Abuse Patient Records regulations: The Federal rules restrict any use of the information to criminally investigate or prosecute any alcohol or drug abuse patient.[facility] CenterIn the event this information is protected by the Federal Confidentiality of Alcohol and Drug Abuse Patient Records regulations: The Federal rules restrict any use of the information to criminally investigate or prosecute any alcohol or drug abuse patient.[facility] CenterIn the event this information is protected by the Federal Confidentiality of Alcohol and Drug Abuse Patient Records regulations: The Federal rules restrict any use of the information to criminally investigate or prosecute any alcohol or drug abuse patient.[facility] CenterIn the event this information is protected by the Federal Confidentiality of Alcohol and Drug Abuse Patient Records regulations: The Federal rules restrict any use of the information to criminally investigate or prosecute any alcohol or drug abuse patient.[facility] CenterIn the event this information is protected by the Federal Confidentiality of Alcohol and Drug Abuse Patient Records regulations: The Federal rules restrict any use of the information to criminally investigate or prosecute any alcohol or drug abuse patient.[facility] CenterIn the event this information is protected by the Federal Confidentiality of Alcohol and Drug Abuse Patient Records regulations: The Federal rules restrict any use of the information to criminally investigate or prosecute any alcohol or drug abuse patient.[facility] CenterIn the event this information is protected by the Federal Confidentiality of Alcohol and Drug Abuse Patient Records regulations: The Federal rules restrict any use of the information to criminally investigate or prosecute any alcohol or drug abuse patient.[facility] CenterIn the event this information is protected by the Federal Confidentiality of Alcohol and Drug Abuse Patient Records regulations: The Federal rules restrict any use of the information to criminally investigate or prosecute any alcohol or drug abuse patient.[facility] CenterIn the event this information is protected by the Federal Confidentiality of Alcohol and Drug Abuse Patient Records regulations: The Federal rules restrict any use of the information to criminally investigate or prosecute any alcohol or drug abuse patient.[facility] CenterIn the event this information is protected by the Federal Confidentiality of Alcohol and Drug Abuse Patient Records regulations: The Federal rules restrict any use of the information to criminally investigate or prosecute any alcohol or drug abuse patient.[facility] CenterIn the event this information is protected by the Federal Confidentiality of Alcohol and Drug Abuse Patient Records regulations: The Federal rules restrict any use of the information to criminally investigate or prosecute any alcohol or drug abuse patient.[facility] CenterIn the event this information is protected by the Federal Confidentiality of Alcohol and Drug Abuse Patient Records regulations: The Federal rules restrict any use of the information to criminally investigate or prosecute any alcohol or drug abuse patient.[facility] CenterIn the event this information is protected by the Federal Confidentiality of Alcohol and Drug Abuse Patient Records regulations: The Federal rules restrict any use of the information to criminally investigate or prosecute any alcohol or drug abuse patient.[facility] CenterIn the event this information is protected by the Federal Confidentiality of Alcohol and Drug Abuse Patient Records regulations: The Federal rules restrict any use of the information to criminally investigate or prosecute any alcohol or drug abuse patient.[facility] CenterIn the event this information is protected by the Federal Confidentiality of Alcohol and Drug Abuse Patient Records regulations: The Federal rules restrict any use of the information to criminally investigate or prosecute any alcohol or drug abuse patient.[facility] Reason for Visit (unrecogniz ed section and content) Reason Comments Follow Up Specialty Diagnoses / Procedures Referred By Contac t Referred To Contact MR IMAGING Diagnoses Demyelinating disease of central nervous system (HCC) Procedures MRI THORACIC SPINE WO/W IVCON MRI SPINAL CANAL THORACIC W/O & W/CONTR ALYSSAL Maryellen Mejia MD [address] [place] [address] Mr Imaging Referral ID Status Reason Start Date Expiration Date V isits Requested Visits Authorized [id number] Closed Auto-Generate d Referral 06/12/2021 07/12/2022 1 1 Reason Onset Date Comments Refill Request 08/09/2021 Reason Onset Date Comments Refill Request 09/02/2021 Reason Comments Insurance Authorization methylphenidate (RITALIN) 10 mg tablet Reason Onset Date Comments Refill Request 09/10/2021 Reason Onset Date Comments Refill Request 10/07/2021 Reason Onset Date Comments Refill Request 11/06/2021 Reason Onset Date Comments Refill Request 11/07/2021 Reason Comments Results Reason Comments Physical Reason Onset Date Comments Refill Request 12/10/2021 Reason Comments Physical Reason Comments Opened In Error Reason Comments Patient Update Reason Onset Date Comments Refill Request 01/07/2022 Reason Comments Established Patient Reason Onset Date Comments Refill Request 02/07/2022 Reason Comments Well Woman Reason Onset Date Comments Refill Request 03/19/2022 Reason Onset Date Comments Refill Request 04/17/2022 Reason Comments Recheck 4 month follow up Reason Onset Date Comments Refill Request 05/22/2022 Reason Comments Follow Up Reason Onset Date Comments Refill Request 08/25/2022 Reason Onset Date Comments Refill Request 09/11/2022 Reason Onset Date Comments Refill Request 10/26/2022 Refill Request 10/27/2022 Reason Onset Date Comments Refill Request 11/25/2022 Reason Comments Appointment Reason Onset Date Comments Refill Request 12/26/2022 Reason Onset Date Comments Refill Request 02/11/2023 Reason Comments Rash Care Teams (unrecognized sec tion and content) Crepe Box Tender Relationship Specialty Start Date End Date Samanta Hale MD [address] [place] [address] PCP - General Family Practice 08/24/13 Crepe Box Tender Relationship Specialty Start Date End Date Samanta Hael MD [address] [place] [address] PCP - General Family Practice 08/24/13 Crepe Box Tender Relationship Specialty Start Date End Date Samanta Hale MD [address] [place] [address] PCP - General Family Practice 08/24/13 Crepe Box Tender Relationship Specialty Start Date End Date Samanta Hale MD [address] [place] [address] PCP - General Family Practice 08/24/13 Crepe Box Tender Relationship Specialty Start Date End Date Samanta Hale MD [address] [facility] [place] [address] PCP - General Family Practice 08/24/13 Crepe Box Tender Relationship Specialty Start Date End Date Samanta Hale MD [address] [facility] [place] [address] PCP - General Family Practice 08/24/13 Crepe Box Tender Relationship Specialty Start Date End Date Samanta Hale MD [facility] [place] [address] PCP - General Family Practice 08/24/13 Crepe Box Tender Relationship Specialty Start Date End Date Samanta Hale MD [facility] [place] [address] PCP - General Family Practice 08/24/13 Crepe Box Tender Relationship Specialty Start Date End Date Samanta Hale MD [facility] [place] [address] PCP - General Family Practice 08/24/13 Crepe Box Tender Relationship Specialty Start Date End Date Samanta Hale MD [facility] [place] [address] PCP - General Family Medicine 08/24/13 Crepe Box Tender Relationship Specialty Start Date End Date Samanta Hale MD [facility] [place] [address] PCP - General Family Medicine 08/24/13 Crepe Box Tender Relationship Specialty Start Date End Date Samanta Hale MD [facility] [place] [address] PCP - General Family Medicine 08/24/13 Crepe Box Tender Relationship Specialty Start Date End Date Samanta Hale MD [address] [place] [address], [place] [address] PCP - General Family Medicine 08/24/13 Crepe Box Tender Relationship Specialty Start Date End Date Samanta Hale MD [address] [facility] [place] [address] PCP - General Family Medicine 08/24/13 Crepe Box Tender Relationship Specialty Start Date End Date Samanta Hale MD [facility] [place] [address] PCP - General Family Medicine 08/24/13 Crepe Box Tender Relationship Specialty Start Date End Date Samanta Hale MD [facility] [place] [address] PCP - General Family Medicine 08/24/13 Crepe Box Tender Relationship Specialty Start Date End Date Samanta Hale MD [address] [place] [address], [place] [address] PCP - General Family Medicine 08/24/13 Crepe Box Tender Relationship Specialty Start Date End Date Samanta Hale MD [address] [place] [address], [place] [address] PCP - General Family Medicine 08/24/13 Crepe Box Tender Relationship Specialty Start Date End Date Samanta Hale MD [address] [place] [address], [place] [address] PCP - General Family Medicine 08/24/13 Crepe Box Tender Relationship Specialty Start Date End Date Samanta Hale MD [facility] [place] [address] PCP - General Family Medicine 08/24/13 Crepe Box Tender Relationship Specialty Start Date End Date Samanta Hale MD [address] [place] [address], [place] [address] PCP - General Family Medicine 08/24/13 Crepe Box Tender Relationship Specialty Start Date End Date Samanta Hale MD [address] [place] [address], [place] [address] PCP - General Family Medicine 08/24/13 Crepe Box Tender Relationship Specialty Start Date End Date Samanta Hale MD [address] [place] [address] PCP - General Family Medicine 08/24/13 Crepe Box Tender Relationship Specialty Start Date End Date Samanta Hale MD [address] [place] [address] PCP - General Family Medicine 08/24/13 Crepe Box Tender Relationship Specialty Start Date End Date Samanta Hale MD [address] [place] [address] PCP - General Family Medicine 08/24/13 Crepe Box Tender Relationship Specialty Start Date End Date Samanta Hale MD [address] [place] [address] PCP - General Family Medicine 08/24/13 Crepe Box Tender Relationship Specialty Start Date End Date Samanta Hale MD [address] [place] [address] PCP - General Family Medicine 08/24/13 Crepe Box Tender Relationship Specialty Start Date End Date Samanta Hale MD [address] [place] [address] PCP - General Family Medicine 08/24/13 Crepe Box Tender Relationship Specialty Start Date End Date Samanta Hale MD [address] [place] [address] PCP - General Family Medicine 08/24/13 Crepe Box Tender Relationship Specialty Start Date End Date Samanta Hale MD [address] [place] [address] PCP - General Family Medicine 08/24/13 INFORMATION SOURCE (unrecogn ized section and content) FOR RECORDS PERTAINING TO PATIENTS WHO ARE OR HAVE BEEN ENROLLED IN A CHEMICAL DEPENDENCY/SUBSTANCEABUSE PROGRAM, SOME INFORMATION MAY BE OMITTED. This clinical summary was aggregated from multiple sources. Caution should be exercised in using it in the provision of clinical care. This summary normalizes information from multiple sources, and as a consequence, information in this document may materially change the coding, format and clinical context of patient data. In addition, data may be omitted in some cases. CLINICAL DECISIONS SHOULD BE BASED ON THE PRIMARY CLINICAL RECORDS. [facility]. provides no warranty or guarantee of the accuracy or completeness of information in this document.
[2023-04-14 20:34] LABS: Reflex Troponin-HS? (from REC) Y
[2023-04-14 20:57] VITALS: BP 156/98; PULSE 96; RESP 18; TEMP 37.1; O2SAT 98
[2023-04-14 20:59] VITALS: BP 156/98; PULSE 96; RESP 18; TEMP 37.1; O2SAT 98
[2023-04-14 21:00] VITALS: BP 156/98; PULSE 96; RESP 18; TEMP 37.1; O2SAT 98
[2023-04-14 21:26] LABS: Troponin-I HS 5 pg/mL (3.0-54.0)
== END 2023-04-14 21:55 | disposition home or self-care (01) ==
PROVIDERS: Emergency Provider Emergency Medicine; PCP Pediatrics; Visit Provider Emergency Medicine
DX: R55 Syncope and collapse (principal)
CPT/HCPCS: 70450; 71275; 80048; 81001; 84484; 84703; 85025; 87631; 93005; 96360; 99285; J7030; Q9967; A4216

== ENCOUNTER 2023-10-18 12:16 | Emergency (ER) | payer OTHER, SELFPAY ==
[2023-10-18 12:18] VITALS: BP 142/97; PULSE 120; RESP 19; TEMP 36.4; O2SAT 98; BMI 31.4
--- NOTE | 2023-10-18 13:21 | EDS_ITS ---
HPI History of Present Illness Chief Complaint: Chest Pain Informant: patient Onset/Context/Timing Onset: Yesterday Activity at onset: gradual Timing: Intermittent Quality: Positive for Pressure Location: Substernal and Right Parasternal Worsened By: Exertion Relieved By: - (Laying completely flat, and standing up) Associated Symptoms: Positive for Nausea, Diaphoresis, Dyspnea, Lightheadedness, Acid Reflux, Palpitations and - (Reclined position); Negative for Vomiting, Cough or Fever Narrative Narrative: Patient presents with chest pain that began yesterday. Patient states it has been intermittent. Patient describes it as pressure. Patient states it is over the substernal and right parasternal areas. Patient states it gets worse with exertion. Patient states that it gets better in a reclined position. Patient also states it is worse when she lays completely flat and when she is standing upright. Patient states she has a history of tachycardia and has been put on a Holter monitor which showed sinus tachycardia. Patient states that last night she was also having some visual changes. Patient states she was seeing red-blue and white squares in her vision. Patient states that she also noted a fernandes tent over her vision. Patient admits to some decreased hearing and some pain in her right ear at the same time. Patient also states that she felt like she was having some tightness in her throat. CVD Risk Factors: Positive for Family History 1' </=55; Negative for Hypertension, Diabetes, Hypercholesterolemia or Smoking PE Risk Factors: Negative for Recent Travel/Surgery, Recent Immobilization, Prior DVT or PE, Cancer or OCP + Smoking + >/=35 [facility] Medical History SOB (shortness of breath) Home Medications ?Medication ?Instructions ?Recorded ?Last Taken ?Type Methotrexate 05/21/19 Unknown History cetirizine 10 mg capsule 10 mg PO BID 05/21/19 Unknown History cholecalciferol (vitamin D3) 50 4,000 unit PO DAILY 05/21/19 Unknown History mcg (2,000 unit) capsule famotidine 20 mg tablet 20 mg PO BID 05/21/19 Unknown History fexofenadine 60 mg tablet 60 mg PO BID 05/21/19 Unknown History fluticasone propionate 50 2 spray NASAL DAILY 05/21/19 Unknown History mcg/actuation nasal spray,suspension methylphenidate HCl 18 mg 36 mg PO DAILY 05/21/19 Unknown History tablet,extended release 24 hr Allergy/AdvReac Type Severity Reaction Status Date / Time Penicillins Allergy Rash Verified 10/18/23 12:20 Surgical History Hx of tonsillectomy History of section Social History Smoking Status: Never smoker ROS ROS ED Constitutional Constitutional ED: Reports chills and subjective; Denies fever(s) Eyes Eyes: Reports change in vision; Denies blurry vision ENT ENT ED: Reports ear pain right; Denies rhinorrhea Cardiovascular Cardiovascular: Reports chest pain and palpitations Respiratory/Chest Respiratory/Chest: Reports dyspnea; Denies cough Gastrointestinal Gastrointestinal: Reports nausea; Denies vomiting Genitourinary Genitourinary ED: Reports urinary frequency; Denies dysuria or hematuria Musculoskeletal Musculoskeletal: Denies back pain or neck pain Integumentary Denies abscess or rash Neurologic Neurologic: Denies headache(s) or weakness Allergic/Immunologic Allergic/Immunologic ED: Denies mouth swelling or urticaria EXAM Physical Exam Const Vital Signs: 10/18/23 12:18 10/18/23 12:35 10/18/23 13:59 Temperature 97.6 F L Temperature Source Temporal Pulse Rate 120 H Respiratory Rate 19 H Respiratory Effort Short of Breath Blood Pressure 142/97 H Blood Pressure Mean 112 Pulse Ox 98 98 Oxygen Delivery Method Room Air Room Air 10/18/23 14:18 10/18/23 16:00 Temperature Temperature Source Pulse Rate 102 H 74 Respiratory Rate 18 18 Respiratory Effort Blood Pressure 126/94 H 134/86 H Blood Pressure Mean 104 102 Pulse Ox 98 97 Oxygen Delivery Method Room Air Room Air Positive well nourished and well developed General Appearance ED: well developed and NAD HEENT Reports moist mucous membranes Neck supple and no JVD Chest Wall palpation of chest normal Resp normal respiratory effort and clear to auscultation bilaterally Cardio regular rhythm Rate: tachycardic GI soft to palpation, non-tender and non-distended Extremity General Extremety ED: Negative for edema or tenderness General Extremity: Negative for edema Neuro oriented x3, CN's II-XII intact bilaterally and no sensory deficits noted Sensorium / Orientation: awake and alert Motor Exam: strength 5/5 throughout Heart Score History: Slightly/Non-Suspicious ECG: Normal Age: </= 45 years Risk Factors: 1 or 2 Risk Factors Troponin: </= Normal Limit Score: 1 MDM MDM MDM Narrative Medical decision making narrative: Differential diagnosis includes cardiac dysrhythmia, cardiac ischemia, brandon ctrolyte abnormality, pulmonary embolism, pneumonia, stroke, intracranial bleeding, and anxiety. EKG will be obtained to assess for cardiac dysrhythmia and cardiac ischemia. Chest x-ray will be obtained to assess for pneumonia and pneumothorax. CT scan of the brain will be obtained to assess for intracranial bleeding and stroke. CBC will be obtained to assess for leukocytosis and anemia. Basic metabolic profile will be obtained to assess for electrolyte abnormality and renal function. High-sensitivity troponin will be obtained to assess for cardiac ischemia. 2-hour repeat high-sensitivity troponin will be obtained to assess for ongoing cardiac ischemia. D-dimer will be obtained to assess for pulmonary embolism. Lab Data Attestation: I reviewed the patient's lab results. Lab results narrative: CBC was reviewed. There is a mild leukocytosis of 11.3. The remainder is within normal limits. Basic metabolic profile was reviewed and was within normal limits. D-dimer was reviewed and was normal at 0.28. High-sensitivity troponin was reviewed and was less than 3. 2-hour repeat high-sensitivity troponin was reviewed Labs: Laboratory Results - last 24 hr 10/18/23 10/18/23 12:45 15:56 WBC 11.3 H RBC 4.85 Hgb 14.2 Hct 41.8 MCV 86.2 MCH 29.3 MCHC 34.0 RDW Std Deviation 39.2 RDW Coeff of Jamaal 12.5 Plt Count 428 MPV 10.4 Immature Gran % (Auto) 0.500 Neut % (Auto) 64.5 Lymph % (Auto) 24.8 Wilkinson % (Auto) 6.9 Eos % (Auto) 2.8 Baso % (Auto) 0.5 Absolute Neuts (auto) 7.3 Absolute Lymphs (auto) 2.79 Nucleated RBC % 0 D-Dimer Quant (PE/DVT) 0.28 Sodium 139 Potassium 3.8 Chloride 107 Carbon Dioxide 24.0 Anion Gap 8 BUN 8 Creatinine 0.91 Estim Creat Clear Calc 89.03 Est GFR (MDRD) Af Amer 90 Est GFR (MDRD) Non-Af 74 BUN/Creatinine Ratio 8.8 L Glucose 150 H Calcium 9.8 Troponin I High Sens < 3 L < 3 L Radiography Chest X-Ray - ED: 2 View, Read by ED Physician, Read by Radiologist and No Acute Disease Diagnostic Testing: Clinical Impression(s) from Imaging Studies Brain CT 10/18/23 13:38 IMPRESSION: Negative head/brain CT without intravenous contrast. Electronically Signed: Flavio Moore MD at 15:03 EDT , Chest X-Ray 10/18/23 13:39 IMPRESSION: No radiographic evidence of acute cardiopulmonary disease. Electronically Signed: Flavio Moore MD at 14:54 EDT , CT scan of the brain was obtained. There is no acute intracranial abnormality. This was interpreted by the radiologist and was also independently reviewed by myself. PA and lateral chest x-ray was obtained. There are 2 views. On my independent interpretation, lung harley are clear. There is normal cardiac silhouette. Bony thorax is normal. There is no acute process noted. Radiologist also interpreted the x-ray and agrees. EKG Initial EKG: Attestation: I personally reviewed and interpreted this EKG as follows: Interpretation: No Acute Injury Pattern and Sinus Tachycardia (129) Comments: EKG was obtained. On my independent interpretation, it showed a sinus tachycardia with a rate of 129. HI interval, QRS interval, and QTc intervals were all normal. [place] was normal. There are no acute ST or T wave changes. Prior EKG tracings: available for review Prior: Unchanged (04/14/2023) Treatment and Re-Evaluation :: Patient was given aspirin here. On reevaluation, patient's vital signs improved. Patient's heart rate improved to 74. Patient was advised of her findings. Patient has a HEART score of 1. Patient was advised that this is low risk for acute cardiac event. Patient was instructed to follow-up with her primary care physician in 5 to 7 days. Patient was instructed to return if worse in any way. Patient understood and was agreeable with the plan. All questions were answered. Discharge Plan Triage Chief Complaint: Chest Pain ED Provider: Lenny Curiel Dx/Rx/DC Orders Clinical Impression: Visual disturbance, Chest pain, Tachycardia Instructions: Understanding Vision Problems, ED Chest Pain, Uncertain Cause Prescriptions: No Action fexofenadine 60 MG tablet 60 mg PO BID famotidine 20 MG tablet 20 mg PO BID methylphenidate HCl 18 MG tablet extended release 24hr 36 mg PO DAILY fluticasone propionate 1 SPRAY spray,suspension 2 spray NASAL DAILY cholecalciferol (vitamin D3) 2,000 UNIT capsule 4,000 unit PO DAILY cetirizine 10 MG capsule 10 mg PO BID Methotrexate Primary Care Provider: Florencio Pereira Referrals: Florencio Pereira DO [Primary Care Provider] - 5-7 Days Print Language: Polish Disposition Disposition: Home, Self Care
--- NOTE | 2023-10-18 13:38 | EKG12_ITS ---
Test Reason : CP Blood Pressure : / mmHG Vent. Rate : 129 BPM Atrial Rate : 129 BPM P-R Int : 134 ms QRS Dur : 076 ms QT Int : 320 ms P-R-T Axes : 037 045 032 degrees QTc Int : 468 ms Sinus tachycardia Otherwise normal ECG Confirmed by ISI PRITCHETT, OCHOA ([id number]), offline editor VERÓNICA GALDAMEZ ([id number]) on 10/19/2023 9:43:15 AM Referred By: LIZET Confirmed By:OCHOA SNOWDEN MD
--- NOTE | 2023-10-18 13:38 | CT_ITS ---
EXAM: CT HEAD WITHOUT INTRAVENOUS CONTRAST CLINICAL INDICATION: Visual changes TECHNIQUE: Multiple axial images were obtained of the head without intravenous contrast. This CT exam was performed using one or more of the following dose reduction techniques: automated exposure control, adjustment of the mA and/or kV according to patient size, and/or use of iterative reconstruction technique. RADIATION DOSE: CTDIvol = 44.99 mGy, DLP = 796.11 mGy-cm COMPARISON: 04/14/2023 FINDINGS: BRAIN AND EXTRA-AXIAL SPACES: Unremarkable. No intra- or extra-axial hemorrhage. No evidence of acute infarct. No intracranial mass or mass effect. There is preservation of the fernandes/white matter interface. Posterior fossa structures are unremarkable. Ventricles are appropriate for age. No hydrocephalus. Basal cisterns are patent. BONES/JOINTS: Unremarkable. No discrete lytic or blastic abnormalities. SINUSES: Unremarkable as visualized. Clear. MASTOID AIR CELLS: Unremarkable. Clear. ORBITS: Visualized globes, extraocular muscles, optic nerves and retrobulbar fat appear unremarkable. CT/Brain/Head without Contrast IMPRESSION: Negative head/brain CT without intravenous contrast. Electronically Signed: Flavio Moore MD at 15:03 EDT ,
--- NOTE | 2023-10-18 13:39 | RAD_ITS ---
EXAM: XR CHEST, 2 VIEWS CLINICAL INDICATION: chest pain TECHNIQUE: Frontal and lateral views of the chest. COMPARISON: 05.21.19 FINDINGS: LUNGS AND PLEURAL SPACES: Unremarkable. No consolidation or edema. No pneumothorax. No effusion. HEART: Unremarkable. Cardiac silhouette not enlarged. MEDIASTINUM: Central airways and mediastinal contour are unremarkable. BONES/JOINTS: Unremarkable. No acute fracture. SOFT TISSUES: Unremarkable. RAD/Chest PA and Lateral IMPRESSION: No radiographic evidence of acute cardiopulmonary disease. Electronically Signed: Flavio Moore MD at 14:54 EDT ,
[2023-10-18 13:55] LABS: Absolute Lymphocyte Count 2.79 X10^3/uL (0.83-4.51); Absolute Neutrophil Count 7.3 X10^3/uL (2.0-7.7); Basophil# 0.06 X10^3/uL; Basophil% 0.5 % (0-1); Eosinophil# 0.31 X10^3/uL; Eosinophils% 2.8 % (0-5); Hematocrit 41.8 % (37-47); Hemoglobin 14.2 g/dL (12.0-15.0); Lymphocyte # 2.79 X10^3/ul (0.83-4.51); Lymphocyte % 24.8 % (19-41); Mean Corpuscular Hgb 29.3 pg (27.0-32.0); Mean Corpuscular Volume 86.2 fL (81-99); Mean Platelet Vol. 10.4 fl (6.2-12.0); Monocyte# 0.78 X10^3/uL; Monocyte% 6.9 % (0-10); NRBC Flagged by Analyzer 0 % (0-5); Neutrophil # 7.25 X10^3/uL (2.7-7.7); Neutrophil % 64.5 % (47-70); Platelet Count 428 K/mm3 (150-450); RBC Distribution Width CV 12.5 % (11.6-14.6); RBC Distribution Width SD 39.2 fl (35.1-43.9); Red Blood Count 4.85 M/mm3 (4.2-5.4); White Blood Count 11.3 K/mm3 (4.4-11.0)
[2023-10-18] MEDS: Aspirin 81 MG TAB.CHEW 324 MG PO (13:58)
[2023-10-18 13:59] VITALS: O2SAT 98
[2023-10-18 14:14] LABS: Anion Gap 8 (5-15); BUN 8 mg/dL (7-18); BUN/Creat Ratio 8.8 RATIO (10-20); Calcium,Total 9.8 mg/dL (8.5-10.1); Chloride 107 mmol/L (98-107); Creatinine, Serum 0.91 mg/dL (0.55-1.02); D-Dimer Quantitative (DVT/PE) 0.28 FEU/ug/m (0.27-0.49); EST Glomerular Filtration Rate 74 mL/min (>60); Est Glom Filt Rate - Afr Amer 90 mL/min (>60); Estimated Creatinine Clearance 89.03 ml/min; Glucose 150 mg/dL (74-106); Potassium 3.8 mmol/L (3.5-5.1); Sodium Level 139 mmol/L (136-145); Troponin-I HS (w/2H Reflex) < 3 pg/mL (3.0-54.0)
[2023-10-18 14:18] VITALS: BP 126/94; PULSE 102; RESP 18; O2SAT 98
[2023-10-18 15:46] LABS: Reflex Troponin-HS? (from REC) Y
[2023-10-18 16:00] VITALS: BP 134/86; PULSE 74; RESP 18; O2SAT 97
[2023-10-18 16:26] LABS: Troponin-I HS < 3 pg/mL (3.0-54.0)
[2023-10-18 16:39] VITALS: BP 123/69; PULSE 97; RESP 18; TEMP 36.7; O2SAT 98
== END 2023-10-18 16:40 | disposition home or self-care (01) ==
PROVIDERS: Emergency Provider Emergency Medicine; PCP Pediatrics; Visit Provider Emergency Medicine
DX: R07.9 Chest pain, unspecified (principal); R11.0 Nausea; H91.91 Unspecified hearing loss, right ear; R00.0 Tachycardia, unspecified; H53.9 Unspecified visual disturbance; K21.9 Gastro-esophageal reflux disease without esophagitis; R35.0 Frequency of micturition; D72.829 Elevated white blood cell count, unspecified; H92.01 Otalgia, right ear
CPT/HCPCS: 70450; 71046; 80048; 84484; 85025; 85379; 93005; 99284; A4216